=== PATIENT | female | born 1955 | race Caucasian/White ===

== ENCOUNTER 2020-04-28 04:12 | Emergency (ER) | payer SELFPAY ==
[2020-04-28 04:17] VITALS: BP 125/77; BP 130/80; PULSE 100; PULSE 80; RESP 20; TEMP 36.7; O2SAT 94; BMI 21.9
--- NOTE | 2020-04-28 04:23 | ED_ITS ---
HPI - Alcohol General Chief Complaint: ETOH/Substance Use Stated Complaint: ETOH Time Seen by Provider: 04/28/20 04:22 Source: patient and EMS Mode of arrival: EMS Limitations: no limitations History of Present Illness HPI narrative: Patient's history of alcohol use usually she drinks on the weekend last night patient had more than usual wine was in the kitchen lost balance and fell on the tile floor landed on the right side hitting her elbow to the ground came with a skin tear on the right elbow denies any head injury no loss of consciousness patient not on blood thinner patient was unable to stand up because of unsteadiness and she called ambulance denies any neck pain or back pain complaint: alcohol intoxication Chronic alcohol use: Yes Previous visits for alcohol intoxication: No Recent trauma: Yes Related Data Previous Rx's Medication Instructions Recorded amlodipine 5 mg tablet 5 mg PO DAILY 30 Days #30 tab 04/15/20 hydrochlorothiazide 25 mg tablet 25 mg PO DAILY 30 Days #30 tab 04/15/20 levothyroxine 112 mcg tablet 112 mcg PO DAILY 90 Days #90 tab 04/15/20 ciprofloxacin HCl [Cipro] 500 mg PO BID #6 tab 04/28/20 Allergies Allergy/AdvReac Type Severity Reaction Status Date / Time No Known Allergies Allergy Unverified 01/24/20 18:41 [No Known Allergies*] Review of Systems Review of Systems: Constitutional : No Weight loss, No Fever, No Chills ENT/Mouth : No sore throat, No Rhinorrhea Eyes: No Eye Pain, No Swelling Cardiovascular : No Chest Pain, no Dyspnea on Exertion, No Orthopnea, No Edema, No Palpitations, no SOB Respiratory : No Cough, No Sputum Gastrointestinal : no Nausea, No Vomiting, No Diarrhea, No abdominal Pain, No Hematochezia, No Melena Genitourinary : No Dysuria, No Urinary Frequency Musculoskeletal : No joint pain, No Myalgias, No Joint Swelling Skin : No Skin Lesions, No rash Neuro : No Weakness, No Numbness, No Dizziness, No Headache Psych : No Anxiety/Panic, No Depression Heme/Lymph:+ Bruising, No Lymphadenopathy Endocrine : No Polyuria, No Polydipsia All other systems reviewed and are negative PMFSH Past Medical History Medical History Alcohol abuse COPD (chronic obstructive pulmonary disease) Social History Social History Advance Directives: No Advance Directives Information Provided: No Physical Exam Vital Signs: Vital Signs: Last Vital Signs Temp 98.0 F 04/28/20 04:17 Pulse 96 04/28/20 05:57 Resp 16 04/28/20 05:57 BP 114/70 04/28/20 05:57 Pulse Ox 94 04/28/20 04:17 Body Mass Index 21.9 Appearance: Alert. Oriented X3. No acute distress. Intoxicated Eyes: Pupils equal, round and reactive to light. ENT: Pharynx normal. Head atraumatic Neck: Normal inspection. Neck supple. No midline tenderness CVS: Normal heart rate and rhythm. Pulses normal. Respiratory: No respiratory distress. Breath sounds normal. Abdomen: Soft and nontender. Bowel sounds are present, no mass palpable, no CVA tenderness Skin: Skin warm and dry. Normal skin color. Normal skin turgor. Extremities: No lower extremity edema. Small Skin tear right elbow good range of movement of right elbow Neuro: Oriented X 3. No motor deficit. No sensory deficit. MDM - Alcohol MDM Narrative Medical decision making narrative: Patient alcoholic with ETOH level of [address] scan of the head is negative no significant injuries noticed labs are stable patient ambulate in the ER and steady gait but no one to take her home will wait for another 4 hours for her to get further sober and discharge advised her not to drink alcohol patient UA showed nitrite positive urine bacteria 3+ patient asymptomatic will treat her with antibiotics Differential Diagnosis Differential diagnosis: Likely alcohol dependence Medical Records Attestation: I reviewed the patient's medical records. Lab Data Attestation: I reviewed the patient's lab results. Result diagrams: 04/28/20 04:39 04/28/20 04:39 Labs: Lab Results 04/28/20 04/28/20 04/28/20 Range/Units 04:39 04:39 04:39 WBC 6.4 (4.8-10.8) X10*3/uL RBC 3.78 L (4.20-5.50) X10*6/uL Hgb 12.7 (12.0-16.0) g/dl Hct 36.9 L (37-47) % MCV 97.6 (80-98) fL MCH 33.6 H (27.0-33.0) pg MCHC 34.4 (31.0-35.0) g/dl RDW 12.8 (11.0-16.0) % Plt Count 144 L (160-400) X10*3/uL MPV 9.3 L (9.4-12.3) fL Immature Gran % (Auto) 0.3 (0.0-0.4) % Neut % (Auto) 55.6 (45-73) % Lymph % (Auto) 32.7 (20-40) % [place] % (Auto) 7.8 (2-11) % Eos % (Auto) 3.0 (0-4) % Baso % (Auto) 0.6 (0-2) % Lymph # (Auto) 2.1 (1.2-4.9) X10*3/uL [place] # (Auto) 0.5 (0.1-1.2) X10*3/uL Eos # (Auto) 0.2 (0.0-0.4) X10*3/uL Baso # (Auto) 0.0 (0.0-0.2) X10*3/uL Abs Immat Gran (auto) 0.02 (0.00-0.03) X10*3/uL Absolute Neuts (auto) 3.6 (2.0-8.3) X10*3/uL Absolute Nucleated RBC 0.000 (0.0-0.012) X10*3/uL Nucleated RBC % (auto) 0.0 (0.0-0.2) /100WBC Smear Tech's Comments VERIFIED Sodium 138 (135-145) mmol/L Potassium 3.8 (3.3-5.1) mmol/l Chloride 101 (96-108) mmol/L Carbon Dioxide 23 (22-29) mmol/L Anion Gap 18 (12-20) BUN 9 (9-16) mg/dL Creatinine 0.59 (0.5-1.4) mg/dL Estim Creat Clear Calc 90.1 Estimated GFR > 60 Random Glucose 111 (60-115) mg/dL Calcium 9.4 (8.4-10.2) mg/dL Magnesium 1.6 (1.6-2.6) mg/dL Total Bilirubin < 0.2 (0.0-1.0) mg/dL AST 17 (5-31) U/L ALT 14 (0-31) U/L Alkaline Phosphatase 54 (39-117) U/L Total Protein 6.2 L (6.5-8.0) g/dL Albumin 3.8 (3.5-5.0) g/dL Urine Color Urine Appearance Urine pH (5.0-8.0) Ur Specific [place] (1.005-1.025) Urine Protein (NEG-TRACE) MG/DL Urine Glucose (UA) (NEG) MG/DL Urine Ketones (NEG) MG/DL Urine Blood (NEG) Urine Nitrite (NEG) Ur Leukocyte Esterase (NEG) Urine RBC (0) /HPF Urine WBC (0-4) /HPF Ur Squamous Epith Cells /LPF Urine Bacteria /LPF Ethyl Alcohol 270 mg/dL 04/28/20 Range/Units 05:58 WBC (4.8-10.8) X10*3/uL RBC (4.20-5.50) X10*6/uL Hgb (12.0-16.0) g/dl Hct (37-47) % MCV (80-98) fL MCH (27.0-33.0) pg MCHC (31.0-35.0) g/dl RDW (11.0-16.0) % Plt Count (160-400) X10*3/uL MPV (9.4-12.3) fL Immature Gran % (Auto) (0.0-0.4) % Neut % (Auto) (45-73) % Lymph % (Auto) (20-40) % [place] % (Auto) (2-11) % Eos % (Auto) (0-4) % Baso % (Auto) (0-2) % Lymph # (Auto) (1.2-4.9) X10*3/uL [place] # (Auto) (0.1-1.2) X10*3/uL Eos # (Auto) (0.0-0.4) X10*3/uL Baso # (Auto) (0.0-0.2) X10*3/uL Abs Immat Gran (auto) (0.00-0.03) X10*3/uL Absolute Neuts (auto) (2.0-8.3) X10*3/uL Absolute Nucleated RBC (0.0-0.012) X10*3/uL Nucleated RBC % (auto) (0.0-0.2) /100WBC Smear Tech's Comments Sodium (135-145) mmol/L Potassium (3.3-5.1) mmol/l Chloride (96-108) mmol/L Carbon Dioxide (22-29) mmol/L Anion Gap (12-20) BUN (9-16) mg/dL Creatinine (0.5-1.4) mg/dL Estim Creat Clear Calc Estimated GFR Random Glucose (60-115) mg/dL Calcium (8.4-10.2) mg/dL Magnesium (1.6-2.6) mg/dL Total Bilirubin (0.0-1.0) mg/dL AST (5-31) U/L ALT (0-31) U/L Alkaline Phosphatase (39-117) U/L Total Protein (6.5-8.0) g/dL Albumin (3.5-5.0) g/dL Urine Color COLORLESS Urine Appearance CLEAR Urine pH 6.0 (5.0-8.0) Ur Specific [place] <= 1.005 (1.005-1.025) Urine Protein NEG (NEG-TRACE) MG/DL Urine Glucose (UA) NEG (NEG) MG/DL Urine Ketones NEG (NEG) MG/DL Urine Blood NEG (NEG) Urine Nitrite POS H (NEG) Ur Leukocyte Esterase NEG (NEG) Urine RBC 0 (0) /HPF Urine WBC 0-2 (0-4) /HPF Ur Squamous Epith Cells 1+ /LPF Urine Bacteria 3+ /LPF Ethyl Alcohol mg/dL Discharge Plan Discharge Clinical Impression: Alcoholic intoxication Qualifiers: Complication of substance-induced condition: uncomplicated Qualified Code(s): F10.920 - Alcohol use, unspecified with intoxication, uncomplicated Fall Qualifiers: Encounter type: initial encounter Qualified Code(s): W19.XXXA - Unspecified fall, initial encounter UTI (urinary tract infection) Qualifiers: Urinary tract infection type: acute cystitis Hematuria presence: without hematuria Qualified Code(s): N30.00 - Acute cystitis without hematuria Patient Disposition: Home, Self-Care Instructions: Urinary Tract Infection in Women (ED), Alcohol Intoxication (ED), Fall Prevention (ED) Additional Instructions: Stop drinking alcohol local care of skin tear as advised, drink plenty of fluids Prescriptions: New ciprofloxacin HCl [Cipro] 500 mg tablet 500 mg PO BID Qty: 6 RF: 0 No Action amlodipine 5 mg tablet 5 mg PO DAILY 30 Days Qty: 30 RF: 3 levothyroxine 112 mcg tablet 112 mcg PO DAILY 90 Days Qty: 90 RF: 1 hydrochlorothiazide 25 mg tablet 25 mg PO DAILY 30 Days Qty: 30 RF: 3
--- NOTE | 2020-04-28 04:31 | ECG_ITS ---
Test Reason : FALL Blood Pressure : / mmHG Vent. Rate : 084 BPM Atrial Rate : 084 BPM P-R Int : 160 ms QRS Dur : 088 ms QT Int : 362 ms P-R-T Axes : 063 078 072 degrees QTc Int : 427 ms Normal sinus rhythm Normal ECG When compared with ECG of 26-JAN-2019 19:41, No significant change was found Referred By: Clemente Segura Electronically Signed By:YONI GIFFORD MD
--- NOTE | 2020-04-28 04:32 | CT_ITS ---
EXAMINATION: CT HEAD WITHOUT CONTRAST CLINICAL INFORMATION: Trauma. Fall. COMPARISON: None. TECHNIQUE: Contiguous helical images of the brain were obtained without IV contrast. Multiplanar reconstructions were performed. DLP: 588 mGy-cm. FINDINGS: There are no pathologic extra-axial fluid collections. The lateral, third, fourth ventricles are nondilated and concordant with the appearance of the sulci. There is no evidence for acute intraparenchymal hemorrhage or infarct. There is subcortical white matter disease noted within the high bilateral frontal lobes. There is neither mass nor mass effect. There is no shift of midline structures. The paranasal sinuses and mastoid air cells are clear. There are no osseous lesions. CT/CT head/brain wo con IMPRESSION: No evidence for acute intracranial injury. Automated exposure control (Care Dose) Adjustment of the mA and/or kv according to patient size (this includes techniques or standardized protocols for targeted exams where dose is matched to indication / reason for exam; i.e. extremities or head).
[2020-04-28 04:44] LABS: Eosinophils Absolute Auto 0.2 X10*3/uL (0.0-0.4); Hemoglobin 12.7 g/dl (12.0-16.0); MANUAL DIFF FLAG SCAN; PLT CLUMP 1; SCAN SMEAR FLAG 1
[2020-04-28 04:46] LABS: Basophils Percent Auto 0.6 % (0-2); Hematocrit 36.9 % (37-47); Imm Gran Abs Auto 0.02 X10*3/uL (0.00-0.03); Imm Gran Pct Auto 0.3 % (0.0-0.4); Lymphocytes Absolute Auto 2.1 X10*3/uL (1.2-4.9); Lymphocytes Percent Auto 32.7 % (20-40); Mean Corpuscular HGB Conc 34.4 g/dl (31.0-35.0); Mean Corpuscular Hemoglobin 33.6 pg (27.0-33.0); Mean Corpuscular Volume 97.6 fL (80-98); Mean Platelet Volume 9.3 fL (9.4-12.3); Monocytes Absolute Auto 0.5 X10*3/uL (0.1-1.2); Monocytes Percent Auto 7.8 % (2-11); Neutrophils Absolute Auto 3.6 X10*3/uL (2.0-8.3); Neutrophils Percent Auto 55.6 % (45-73); Red Blood Count 3.78 X10*6/uL (4.20-5.50); Red Cell Distribution Width 12.8 % (11.0-16.0); White Blood Count 6.4 X10*3/uL (4.8-10.8)
--- NOTE | 2020-04-28 04:52 | PC.NURSE ---
Labs obtained, EKG obtained. Pt off to CT on hospital bed.
[2020-04-28 05:03] LABS: Platelet Count 144 X10*3/uL (160-400); SLIDE REVIEW VERIFIED
[2020-04-28 05:04] LABS: Ethanol 270 mg/dL
[2020-04-28 05:09] LABS: Alanine Aminotransferase 14 U/L (0-31); Albumin Level 3.8 g/dL (3.5-5.0); Alkaline Phosphatase 54 U/L (39-117); Anion Gap 18 (12-20); Aspartate Amino Transferase 17 U/L (5-31); Bilirubin Total < 0.2 mg/dL (0.0-1.0); Blood Urea Nitrogen 9 mg/dL (9-16); Calcium 9.4 mg/dL (8.4-10.2); Carbon Dioxide 23 mmol/L (22-29); Chloride 101 mmol/L (96-108); Creatinine Clr Calc Pharmacy 90.1; Estimated Glomerular Filt Rate > 60; Glucose Random 111 mg/dL (60-115); Magnesium 1.6 mg/dL (1.6-2.6); Potassium 3.8 mmol/l (3.3-5.1); Sodium 138 mmol/L (135-145); Total Protein 6.2 g/dL (6.5-8.0)
--- NOTE | 2020-04-28 05:40 | PC.NURSE ---
Pt ambulating in the halls with a steady gait, requiring minimal assist but pt continues expressing difficulty moving extremities. Pt states my body just won't do what I tell it to. Pt moving all extremities without obvious difficulty. Pt states she does not have a ride home, pt insistent on walking home, pt lives alone. aware. Continue to monitor.
[2020-04-28 05:57] VITALS: BP 114/70; PULSE 96; RESP 16
[2020-04-28 06:04] LABS: Appearance Urine CLEAR; Color Urine COLORLESS; Glucose Urine UA NEG (NEG); Leukocyte Esterase Urine NEG (NEG); Nitrite Urine POS (NEG); Specific Gravity - Urine <= 1.005 (1.005-1.025); Urine Blood NEG (NEG); Urine Ketones NEG (NEG); Urine Protein NEG (NEG-TRACE)
[2020-04-28 06:11] LABS: Bacteria Urine 3+ /LPF; RBC Urine 0 /HPF (0); Squamous Epithelial Cell Urine 1+ /LPF; WBC Urine 0-2 /HPF (0-4)
[2020-04-28] MEDS: levoFLOXacin 500 MG TABLET PO (06:18)
--- NOTE | 2020-04-28 06:25 | PC.NURSE ---
Bernardino called for ride home, ETA 30 minutes.
== END 2020-04-28 06:38 | disposition home or self-care (01) ==
PROVIDERS: Emergency Provider Internal Medicine; PCP Internal Medicine
DX: F10.120 Alcohol abuse with intoxication, uncomplicated (principal); Y90.8 Blood alcohol level of 240 mg/100 ml or more; N30.00 Acute cystitis without hematuria; Z91.81 History of falling
CPT/HCPCS: 36415; 70450; 80053; 80320; 81001; 83735; 85025; 87086; 87088; 87186; 93005; 99283; 99284

== ENCOUNTER 2020-09-18 02:32 | Emergency (ER) | payer MEDICARE, SELFPAY ==
[2020-09-18] VITALS (7 sets, daily range): BP systolic 124–173; BP diastolic 69–85; PULSE 77–110; RESP 14–21; TEMP 36.7–37; O2SAT 91–100; BMI 25.8
--- NOTE | 2020-09-18 03:29 | ED.GENADULT ---
HPI - General Adult General Chief complaint: General Medical Stated complaint: TREMORS Time Seen by Provider: 09/18/20 03:23 Source: patient Mode of arrival: EMS Limitations: no limitations History of Present Illness HPI narrative: Patient comes emergency room complaining of sudden onset of left arm shaking. Patient states she was still able to move her arm, it was just trembling. Patient states this is the 1st time it happens, denies numbness tingling. Self resolved, lasted for less than a minute. At this time, patient is asymptomatic Related Data Previous Rx's Medication Instructions Recorded levothyroxine 112 mcg tablet 112 mcg PO DAILY 90 Days #90 tab 04/15/20 ciprofloxacin HCl [Cipro] 500 mg PO BID #6 tab 04/28/20 amlodipine 5 mg tablet 5 mg PO DAILY 30 Days #30 tab 08/14/20 hydrochlorothiazide 25 mg tablet 25 mg PO DAILY 30 Days #30 tab 08/14/20 Allergies Allergy/AdvReac Type Severity Reaction Status Date / Time No Known Allergies Allergy Unverified 01/24/20 18:41 [No Known Allergies*] Review of Systems Review of Systems: Constitutional : No Weight loss, No Fever, No Chills, No Night Sweats, No Fatigue, No Malaise ENT/Mouth : No Hearing loss, No Ear Pain, No Nasal Congestion, No Sinus Pain, No Hoarseness, No sore throat, No Rhinorrhea, No Swallowing Difficulty Eyes: No Eye Pain, No Swelling, No Redness, No Foreign Body, No Discharge, No Vision Changes Cardiovascular : No Chest Pain, No SOB, No Dyspnea on Exertion, No Orthopnea, No Edema, No Palpitations Respiratory : No Cough, No Sputum, No Wheezing, No Smoke Exposure, No Dyspnea Gastrointestinal : No Nausea, No Vomiting, No Diarrhea, No Constipation, No abdominal Pain, No Hematochezia, No Melena Genitourinary : no irregular bleeding, No Dysuria, No Urinary Frequency, No Hematuria, No Urinary Incontinence, No Urgency, No Flank Pain, No Urinary Flow Changes, No Hesitancy Musculoskeletal : No joint pain, No Myalgias, No Joint Swelling Skin : No Skin Lesions, No rash Neuro : No Weakness, No Numbness, No Paresthesias, No Loss of Consciousness, No Dizziness, No Headache, complaining of left arm tremors Psych : No Anxiety/Panic, No Depression, No SI/HI/AH/VH, No Social Issues, Heme/Lymph: No Bruising, No Bleeding,No Lymphadenopathy Endocrine : No Polyuria, No Polydipsia, No Temperature Intolerance [facility] Past Medical History Medical History Alcohol abuse COPD (chronic obstructive pulmonary disease) Social History Social History Advance Directives: No Advance Directives Information Provided: No Physical Exam Vital Signs: Vital Signs: Last Vital Signs Temp 98.1 F 09/18/20 02:39 Pulse 110 H 09/18/20 07:39 Resp 21 H 09/18/20 07:39 BP 160/69 H 09/18/20 07:39 Pulse Ox 92 09/18/20 07:39 Body Mass Index 25.8 Appearance: Alert. Oriented X3. No acute distress. Eyes: Pupils equal, round and reactive to light. ENT: Pharynx normal. Neck: Normal inspection. Neck supple. No lymph nodes noted. No crepitus CVS: Normal heart rate and rhythm. Pulses normal. Normal S1 and S2 Respiratory: No respiratory distress. Breath sounds normal. No Wheezing. No rales Abdomen: Soft and nontender. No rigidity. No distention. good BS x4 Skin: Skin warm and dry. Normal skin color. Normal skin turgor. Extremities: No lower extremity edema. No lower extremity edema. No Lacerations. No Rash, no tremors present. Neuro: Oriented X 3. No motor deficit. No sensory deficit. Moving all extermities. No slurred speech. Course Course Course Narrative: Patient's LFTs are slightly elevated, likely secondary due to alcohol consumption. Patient has no abdominal discomfort. Patient received 3 L of normal saline, oral potassium, repeat chemistry pending. Sign-out given to Dr. Kay Medical Decision Making Lab Data Result diagrams: 09/18/20 03:53 09/18/20 06:17 Labs: Lab Results 09/18/20 09/18/20 09/18/20 Range/Units 03:53 03:53 03:53 WBC 7.3 (4.8-10.8) X10*3/uL RBC 4.11 L (4.20-5.50) X10*6/uL Hgb 14.4 (12.0-16.0) g/dl Hct 39.6 (37-47) % MCV 96.4 (80-98) fL MCH 35.0 H (27.0-33.0) pg MCHC 36.4 H (31.0-35.0) g/dl RDW 13.7 (11.0-16.0) % Plt Count 110 L (160-400) X10*3/uL MPV 9.8 (9.4-12.3) fL Immature Gran % (Auto) 0.4 (0.0-0.4) % Neut % (Auto) 80.8 H (45-73) % Lymph % (Auto) 9.9 L (20-40) % [place] % (Auto) 8.8 (2-11) % Eos % (Auto) 0.0 (0-4) % Baso % (Auto) 0.1 (0-2) % Lymph # (Auto) 0.7 L (1.2-4.9) X10*3/uL [place] # (Auto) 0.6 (0.1-1.2) X10*3/uL Eos # (Auto) 0.0 (0.0-0.4) X10*3/uL Baso # (Auto) 0.0 (0.0-0.2) X10*3/uL Abs Immat Gran (auto) 0.03 (0.00-0.03) X10*3/uL Absolute Neuts (auto) 5.9 (2.0-8.3) X10*3/uL Absolute Nucleated RBC 0.000 (0.0-0.012) X10*3/uL Nucleated RBC % (auto) 0.0 (0.0-0.2) /100WBC Sodium 127 L (135-145) mmol/L Potassium 2.7 L (3.3-5.1) mmol/L Chloride 85 L (96-108) mmol/L Carbon Dioxide 27 (22-29) mmol/L Anion Gap 18 (12-20) BUN 9 (9-16) mg/dL Creatinine 0.66 (0.5-1.4) mg/dL Estim Creat Clear Calc 86.6 Estimated GFR > 60 Random Glucose 104 (60-115) mg/dL Calcium 9.8 (8.4-10.2) mg/dL Magnesium 1.7 (1.6-2.6) mg/dL Total Bilirubin 1.2 H (0.0-1.0) mg/dL Direct Bilirubin 0.6 H (0.0-0.5) mg/dL AST 43 H D (5-31) U/L ALT 64 H (0-31) U/L Alkaline Phosphatase 63 (39-117) U/L Ammonia (13-55) umol/L Total Protein 6.5 (6.5-8.0) g/dL Albumin 4.1 (3.5-5.0) g/dL Ethyl Alcohol < 10 mg/dL 09/18/20 09/18/20 Range/Units 03:53 06:17 WBC (4.8-10.8) X10*3/uL RBC (4.20-5.50) X10*6/uL Hgb (12.0-16.0) g/dl Hct (37-47) % MCV (80-98) fL MCH (27.0-33.0) pg MCHC (31.0-35.0) g/dl RDW (11.0-16.0) % Plt Count (160-400) X10*3/uL MPV (9.4-12.3) fL Immature Gran % (Auto) (0.0-0.4) % Neut % (Auto) (45-73) % Lymph % (Auto) (20-40) % [place] % (Auto) (2-11) % Eos % (Auto) (0-4) % Baso % (Auto) (0-2) % Lymph # (Auto) (1.2-4.9) X10*3/uL [place] # (Auto) (0.1-1.2) X10*3/uL Eos # (Auto) (0.0-0.4) X10*3/uL Baso # (Auto) (0.0-0.2) X10*3/uL Abs Immat Gran (auto) (0.00-0.03) X10*3/uL Absolute Neuts (auto) (2.0-8.3) X10*3/uL Absolute Nucleated RBC (0.0-0.012) X10*3/uL Nucleated RBC % (auto) (0.0-0.2) /100WBC Sodium 132 L (135-145) mmol/L Potassium 2.6 L (3.3-5.1) mmol/L Chloride 92 L (96-108) mmol/L Carbon Dioxide 29 (22-29) mmol/L Anion Gap 14 (12-20) BUN 8 L (9-16) mg/dL Creatinine 0.71 (0.5-1.4) mg/dL Estim Creat Clear Calc 80.5 Estimated GFR > 60 Random Glucose 93 (60-115) mg/dL Calcium 8.8 D (8.4-10.2) mg/dL Magnesium (1.6-2.6) mg/dL Total Bilirubin (0.0-1.0) mg/dL Direct Bilirubin (0.0-0.5) mg/dL AST (5-31) U/L ALT (0-31) U/L Alkaline Phosphatase (39-117) U/L Ammonia 45 (13-55) umol/L Total Protein (6.5-8.0) g/dL Albumin (3.5-5.0) g/dL Ethyl Alcohol mg/dL ECG Data Attestation: I personally reviewed and interpreted this ECG as follows: (ID 1 7, ST segment depression or elevation, T-wave inversion, QTC 475) Discharge Plan Discharge Clinical Impression: Tremor, Acute hyponatremia, Acute hypokalemia Patient Disposition: Home, Self-Care Instructions: Tremors (ED) Additional Instructions: Please follow-up with your primary care physician tomorrow. If you have any worsening or new symptoms, please return to the emergency room or call 911 Prescriptions: No Action levothyroxine 112 mcg tablet 112 mcg PO DAILY 90 Days Qty: 90 RF: 1 hydrochlorothiazide 25 mg tablet 25 mg PO DAILY 30 Days Qty: 30 RF: 6 amlodipine 5 mg tablet 5 mg PO DAILY 30 Days Qty: 30 RF: 3 ciprofloxacin HCl [Cipro] 500 mg tablet 500 mg PO BID Qty: 6 RF: 0
--- NOTE | 2020-09-18 03:55 | PC.NURSE ---
Labs obtained and sent for analysis. Pt resting in bed, VSS, call serna within reach.
[2020-09-18 04:01] LABS: Basophils Percent Auto 0.1 % (0-2); Hematocrit 39.6 % (37-47); Hemoglobin 14.4 g/dl (12.0-16.0); Imm Gran Abs Auto 0.03 X10*3/uL (0.00-0.03); Imm Gran Pct Auto 0.4 % (0.0-0.4); Lymphocytes Absolute Auto 0.7 X10*3/uL (1.2-4.9); Lymphocytes Percent Auto 9.9 % (20-40); Mean Corpuscular HGB Conc 36.4 g/dl (31.0-35.0); Mean Corpuscular Volume 96.4 fL (80-98); Mean Platelet Volume 9.8 fL (9.4-12.3); Monocytes Absolute Auto 0.6 X10*3/uL (0.1-1.2); Monocytes Percent Auto 8.8 % (2-11); Neutrophils Absolute Auto 5.9 X10*3/uL (2.0-8.3); Neutrophils Percent Auto 80.8 % (45-73); Platelet Count 110 X10*3/uL (160-400); Red Blood Count 4.11 X10*6/uL (4.20-5.50); Red Cell Distribution Width 13.7 % (11.0-16.0); White Blood Count 7.3 X10*3/uL (4.8-10.8)
[2020-09-18 04:02] LABS: MANUAL DIFF FLAG NO
[2020-09-18 04:15] LABS: Ammonia 45 umol/L (13-55)
[2020-09-18 04:22] LABS: Ethanol < 10 mg/dL
[2020-09-18 04:28] LABS: Alanine Aminotransferase 64 U/L (0-31); Albumin Level 4.1 g/dL (3.5-5.0); Alkaline Phosphatase 63 U/L (39-117); Anion Gap 18 (12-20); Aspartate Amino Transferase 43 U/L (5-31); Bilirubin Direct 0.6 mg/dL (0.0-0.5); Bilirubin Total 1.2 mg/dL (0.0-1.0); Blood Urea Nitrogen 9 mg/dL (9-16); Calcium 9.8 mg/dL (8.4-10.2); Carbon Dioxide 27 mmol/L (22-29); Chloride 85 mmol/L (96-108); Creatinine Clr Calc Pharmacy 86.6; Estimated Glomerular Filt Rate > 60; Glucose Random 104 mg/dL (60-115); Magnesium 1.7 mg/dL (1.6-2.6); Potassium 2.7 mmol/L (3.3-5.1); Sodium 127 mmol/L (135-145); Total Protein 6.5 g/dL (6.5-8.0)
[2020-09-18] MEDS: 0.9 % Sodium Chloride 1,000 ML 999 ML IVCONT ×3 (05:07→07:37)
--- NOTE | 2020-09-18 05:07 | PC.NURSE ---
IVF infusing per MAR.
--- NOTE | 2020-09-18 06:24 | PC.NURSE ---
technical project coordinator at bedside obtaining repeat labs.
[2020-09-18 06:49] LABS: Anion Gap 14 (12-20); Blood Urea Nitrogen 8 mg/dL (9-16); Calcium 8.8 mg/dL (8.4-10.2); Carbon Dioxide 29 mmol/L (22-29); Chloride 92 mmol/L (96-108); Creatinine Clr Calc Pharmacy 80.5; Estimated Glomerular Filt Rate > 60; Glucose Random 93 mg/dL (60-115); Potassium 2.6 mmol/L (3.3-5.1); Sodium 132 mmol/L (135-145)
--- NOTE | 2020-09-18 07:22 | ECG_ITS ---
Test Reason : GENERAL MEDICAL Blood Pressure : / mmHG Vent. Rate : 107 BPM Atrial Rate : 107 BPM P-R Int : 180 ms QRS Dur : 074 ms QT Int : 356 ms P-R-T Axes : 071 078 077 degrees QTc Int : 475 ms Sinus tachycardia Otherwise normal ECG When compared with ECG of 28-APR-2020 04:44, QT has lengthened Referred By: Ama Truong Electronically Signed By:YONI GIFFORD MD
[2020-09-18] MEDS: Potassium Chloride Packet 20 MEQ PACKET 40 MEQ PO (07:36)
[2020-09-18] MEDS: Potassium Chloride/H20 10 MEQ/100 ML PIGGYBACK 100 MEQ IV (08:48)
[2020-09-18 10:36] LABS: Anion Gap 12 (12-20); Blood Urea Nitrogen 6 mg/dL (9-16); Calcium 8.4 mg/dL (8.4-10.2); Carbon Dioxide 27 mmol/L (22-29); Chloride 101 mmol/L (96-108); Creatinine Clr Calc Pharmacy 89.3; Estimated Glomerular Filt Rate > 60; Glucose Random 84 mg/dL (60-115); Potassium 3.1 mmol/L (3.3-5.1); Sodium 137 mmol/L (135-145)
== END 2020-09-18 11:14 | disposition home or self-care (01) ==
PROVIDERS: Emergency Provider Emergency Medicine; PCP Internal Medicine
DX: R25.1 Tremor, unspecified (principal); E87.1 Hypo-osmolality and hyponatremia; E87.6 Hypokalemia; F10.10 Alcohol abuse, uncomplicated; Y90.0 Blood alcohol level of less than 20 mg/100 ml
CPT/HCPCS: 36415; 80048; 80076; 80320; 82140; 83735; 85025; 93005; 96361; 96365; 99284

== ENCOUNTER 2020-09-26 23:52 | Emergency (ER) | payer MEDICARE, SELFPAY ==
--- NOTE | ~2020-09-26 | XR_ITS ---
EXAMINATION: XR CHEST CLINICAL INFORMATION: Cough COMPARISON: 01/26/2019 TECHNIQUE: Frontal view of the chest was obtained. FINDINGS: The lungs are clear with no focal consolidation. No evidence of pneumothorax, pulmonary edema, or pleural effusions. Cardiac size is within normal limits. Calcification is present at the aortic arch. No acute osseous findings are seen. XR/XR chest 1V IMPRESSION: No acute cardiopulmonary findings.
[2020-09-27 00:33] VITALS: BP 120/70; PULSE 104; RESP 16; TEMP 36.7; O2SAT 94; BMI 18.6
--- NOTE | 2020-09-27 00:35 | ECG_ITS ---
Test Reason : NAUSEA/VOMITING Blood Pressure : / mmHG Vent. Rate : 096 BPM Atrial Rate : 096 BPM P-R Int : 146 ms QRS Dur : 080 ms QT Int : 354 ms P-R-T Axes : 070 085 085 degrees QTc Int : 447 ms Normal sinus rhythm Normal ECG When compared with ECG of 18-SEP-2020 07:59, No significant change was found Referred By: Umm Garber Electronically Signed By:YONI GIFFORD MD
[2020-09-27 01:01] VITALS: BP 109/68; PULSE 98; RESP 15; O2SAT 94
[2020-09-27 01:11] LABS: Basophils Percent Auto 0.4 % (0-2); Eosinophils Percent Auto 0.2 % (0-4); Hematocrit 41.6 % (37-47); Hemoglobin 14.7 g/dl (12.0-16.0); Imm Gran Abs Auto 0.04 X10*3/uL (0.00-0.03); Imm Gran Pct Auto 0.4 % (0.0-0.4); Lymphocytes Absolute Auto 0.9 X10*3/uL (1.2-4.9); Lymphocytes Percent Auto 8.1 % (20-40); MANUAL DIFF FLAG NO; Mean Corpuscular HGB Conc 35.3 g/dl (31.0-35.0); Mean Corpuscular Hemoglobin 35.1 pg (27.0-33.0); Mean Corpuscular Volume 99.3 fL (80-98); Mean Platelet Volume 9.2 fL (9.4-12.3); Monocytes Absolute Auto 0.8 X10*3/uL (0.1-1.2); Monocytes Percent Auto 6.8 % (2-11); Neutrophils Absolute Auto 9.6 X10*3/uL (2.0-8.3); Neutrophils Percent Auto 84.1 % (45-73); Platelet Count 392 X10*3/uL (160-400); Red Blood Count 4.19 X10*6/uL (4.20-5.50); White Blood Count 11.4 X10*3/uL (4.8-10.8)
[2020-09-27 01:23] LABS: INTERNATIONAL NORM RATIO 0.9 (0.9-1.1); Prothrombin Time 10.5 SEC (10.8-13.0)
[2020-09-27] MEDS: ondansetron HCL 4 MG/2 ML VIAL IVPUSH (01:32)
[2020-09-27] MEDS: 0.9 % Sodium Chloride 1,000 ML 999 ML IV (01:36)
[2020-09-27 01:38] LABS: Alanine Aminotransferase 62 U/L (0-31); Albumin Level 3.6 g/dL (3.5-5.0); Alkaline Phosphatase 83 U/L (39-117); Anion Gap 19 (12-20); Aspartate Amino Transferase 27 U/L (5-31); Bilirubin Total 0.6 mg/dL (0.0-1.0); Blood Urea Nitrogen 7 mg/dL (9-16); Calcium 9.6 mg/dL (8.4-10.2); Carbon Dioxide 28 mmol/L (22-29); Chloride 92 mmol/L (96-108); Creatinine Clr Calc Pharmacy 72.2; Estimated Glomerular Filt Rate > 60; Glucose Random 103 mg/dL (60-115); Lipase 22 U/L (8-78); Potassium 3.9 mmol/L (3.3-5.1); Sodium 135 mmol/L (135-145); Total Protein 6.1 g/dL (6.5-8.0)
--- NOTE | 2020-09-27 01:38 | ED_ITS ---
HPI - Nausea/Vomiting/Diarrhea General Chief complaint: Nausea/Vomiting/Diarrhea Stated complaint: nausea vomiting Time Seen by Provider: 09/27/20 00:35 Source: patient Mode of arrival: ambulatory History of Present Illness HPI Narrative: This is a 65-year-old female with significant past medical history of COPD and daily wine drinker who states that her last successful consumption of wine was 3 days ago and now presents with 2 days repeated nausea and vomiting as well as nonbloody diarrhea. Otherwise, she denies any fever, chills, abdominal pain, urinary pain/burning/frequency. Patient denies ever having any withdrawal symptoms when she has attempted to abstain from alcohol. Related Data Previous Rx's Medication Instructions Recorded levothyroxine 112 mcg tablet 112 mcg PO DAILY 90 Days #90 tab 04/15/20 ciprofloxacin HCl [Cipro] 500 mg PO BID #6 tab 04/28/20 amlodipine 5 mg tablet 5 mg PO DAILY 30 Days #30 tab 08/14/20 hydrochlorothiazide 25 mg tablet 25 mg PO DAILY 30 Days #30 tab 08/14/20 cephalexin 500 mg PO BID 7 Days #14 cap 09/27/20 Allergies Allergy/AdvReac Type Severity Reaction Status Date / Time No Known Allergies Allergy Unverified 01/24/20 18:41 [No Known Allergies*] Review of Systems Review of Systems: Pertinent positives and negatives as stated in the HPI and 10 point review of systems is otherwise negative. [facility] Past Medical History Source: nursing notes reviewed Medical History Alcohol abuse COPD (chronic obstructive pulmonary disease) Social History Social History Advance Directives: No Advance Directives Information Provided: Yes Physical Exam Vital Signs: Vital Signs: Last Vital Signs Temp 98.1 F 09/27/20 00:33 Pulse 98 09/27/20 01:01 Resp 15 09/27/20 01:01 BP 109/68 09/27/20 01:01 Pulse Ox 94 09/27/20 01:01 Body Mass Index 18.6 VITAL SIGNS: Reviewed. GENERAL: Cachectic, in no acute distress. HEAD: Normocephalic/atraumatic EYES: PERRLA, EOMI EARS: Ext canals without abnormality NOSE: Nares patent bilateral OROPHARYNX: no oral lesions noted, posterior pharynx clear, dry mucosa NECK: Supple, no adenopathy LUNGS: Scattered rhonchi, without wheeze SpO2<94> CARDIOVASCULAR: Regular rate and rhythm without noted murmurs ABDOMEN: Soft, non-tender, non-distended with bowel sounds. MUSCULOSKELETAL: No tenderness, deformities, or effusions noted on gross inspection. EXTREMITIES: No cyanosis, clubbing or edema. SKIN: Inspection of the skin reveals no rashes NEUROLOGIC: Alert and oriented x 4. Strength and sensation to light touch were grossly intact x 4. Course Course Course Narrative: This is a 65-year-old female with history and clinical presentation consistent with alcohol gastritis and associated nausea and vomiting. However, will rule out other etiologies such as pancreatitis although clinical exam does not support this diagnosis. Patient certainly has dehydration. Review of all investigations consistent with sepsis related to UTI. After adequate fluid resuscitation and antibiotics as well as antiemetics patient has had complete resolution of her symptoms, states feeling better, and is tolerating oral intake. Patient is now stable for discharge to home MDM - Nausea/Vomiting/Diarrhea Lab Data Result diagrams: 09/27/20 00:59 09/27/20 00:59 Labs: Lab Results 09/27/20 09/27/20 09/27/20 Range/Units 00:59 00:59 00:59 WBC 11.4 H (4.8-10.8) X10*3/uL RBC 4.19 L (4.20-5.50) X10*6/uL Hgb 14.7 (12.0-16.0) g/dl Hct 41.6 (37-47) % MCV 99.3 H (80-98) fL MCH 35.1 H (27.0-33.0) pg MCHC 35.3 H (31.0-35.0) g/dl RDW 14.0 (11.0-16.0) % Plt Count 392 D (160-400) X10*3/uL MPV 9.2 L (9.4-12.3) fL Immature Gran % (Auto) 0.4 (0.0-0.4) % Neut % (Auto) 84.1 H (45-73) % Lymph % (Auto) 8.1 L (20-40) % Kem[place] % (Auto) 6.8 (2-11) % Eos % (Auto) 0.2 (0-4) % Baso % (Auto) 0.4 (0-2) % Lymph # (Auto) 0.9 L (1.2-4.9) X10*3/uL Kemper # (Auto) 0.8 (0.1-1.2) X10*3/uL Eos # (Auto) 0.0 (0.0-0.4) X10*3/uL Baso # (Auto) 0.0 (0.0-0.2) X10*3/uL Abs Immat Gran (auto) 0.04 H (0.00-0.03) X10*3/uL Absolute Neuts (auto) 9.6 H (2.0-8.3) X10*3/uL Absolute Nucleated RBC 0.000 (0.0-0.012) X10*3/uL Nucleated RBC % (auto) 0.0 (0.0-0.2) /100WBC PT 10.5 L (10.8-13.0) SEC INR 0.9 (0.9-1.1) Sodium 135 (135-145) mmol/L Potassium 3.9 D (3.3-5.1) mmol/L Chloride 92 L (96-108) mmol/L Carbon Dioxide 28 (22-29) mmol/L Anion Gap 19 (12-20) BUN 7 L (9-16) mg/dL Creatinine 0.64 (0.5-1.4) mg/dL Estim Creat Clear Calc 72.2 Estimated GFR > 60 Random Glucose 103 (60-115) mg/dL Lactic Acid (0.5-2.0) mmol/L Lactic Acid Fup @ 2Hr (0.5-2.0) mmol/L Calcium 9.6 D (8.4-10.2) mg/dL Total Bilirubin 0.6 (0.0-1.0) mg/dL AST 27 (5-31) U/L ALT 62 H (0-31) U/L Alkaline Phosphatase 83 D (39-117) U/L Total Protein 6.1 L (6.5-8.0) g/dL Albumin 3.6 (3.5-5.0) g/dL Lipase (8-78) U/L Urine Color Urine Appearance Urine pH (5.0-8.0) Ur Specific [place] (1.005-1.025) Urine Protein (NEG-TRACE) MG/DL Urine Glucose (UA) (NEG) MG/DL Urine Ketones (NEG) MG/DL Urine Blood (NEG) Urine Nitrite (NEG) Ur Leukocyte Esterase (NEG) Urine RBC (0) /HPF Urine WBC (0-4) /HPF Ur Squamous Epith Cells /LPF Urine Bacteria /LPF Ethyl Alcohol mg/dL 09/27/20 09/27/20 09/27/20 Range/Units 00:59 01:39 02:13 WBC (4.8-10.8) X10*3/uL RBC (4.20-5.50) X10*6/uL Hgb (12.0-16.0) g/dl Hct (37-47) % MCV (80-98) fL MCH (27.0-33.0) pg MCHC (31.0-35.0) g/dl RDW (11.0-16.0) % Plt Count (160-400) X10*3/uL MPV (9.4-12.3) fL Immature Gran % (Auto) (0.0-0.4) % Neut % (Auto) (45-73) % Lymph % (Auto) (20-40) % Kemper % (Auto) (2-11) % Eos % (Auto) (0-4) % Baso % (Auto) (0-2) % Lymph # (Auto) (1.2-4.9) X10*3/uL Kemper # (Auto) (0.1-1.2) X10*3/uL Eos # (Auto) (0.0-0.4) X10*3/uL Baso # (Auto) (0.0-0.2) X10*3/uL Abs Immat Gran (auto) (0.00-0.03) X10*3/uL Absolute Neuts (auto) (2.0-8.3) X10*3/uL Absolute Nucleated RBC (0.0-0.012) X10*3/uL Nucleated RBC % (auto) (0.0-0.2) /100WBC PT (10.8-13.0) SEC INR (0.9-1.1) Sodium (135-145) mmol/L Potassium (3.3-5.1) mmol/L Chloride (96-108) mmol/L Carbon Dioxide (22-29) mmol/L Anion Gap (12-20) BUN (9-16) mg/dL Creatinine (0.5-1.4) mg/dL Estim Creat Clear Calc Estimated GFR Random Glucose (60-115) mg/dL Lactic Acid 2.9 H* (0.5-2.0) mmol/L Lactic Acid Fup @ 2Hr (0.5-2.0) mmol/L Calcium (8.4-10.2) mg/dL Total Bilirubin (0.0-1.0) mg/dL AST (5-31) U/L ALT (0-31) U/L Alkaline Phosphatase (39-117) U/L Total Protein (6.5-8.0) g/dL Albumin (3.5-5.0) g/dL Lipase 22 (8-78) U/L Urine Color YELLOW Urine Appearance HAZY Urine pH 6.5 (5.0-8.0) Ur Specific [place] <= 1.005 (1.005-1.025) Urine Protein NEG (NEG-TRACE) MG/DL Urine Glucose (UA) NEG (NEG) MG/DL Urine Ketones NEG (NEG) MG/DL Urine Blood TRACE (NEG) Urine Nitrite POS H (NEG) Ur Leukocyte Esterase TRACE H (NEG) Urine RBC 1-4 (0) /HPF Urine WBC 1-4 (0-4) /HPF Ur Squamous Epith Cells 1+ /LPF Urine Bacteria 4+ /LPF Ethyl Alcohol mg/dL 09/27/20 09/27/20 Range/Units 02:13 04:51 WBC (4.8-10.8) X10*3/uL RBC (4.20-5.50) X10*6/uL Hgb (12.0-16.0) g/dl Hct (37-47) % MCV (80-98) fL MCH (27.0-33.0) pg MCHC (31.0-35.0) g/dl RDW (11.0-16.0) % Plt Count (160-400) X10*3/uL MPV (9.4-12.3) fL Immature Gran % (Auto) (0.0-0.4) % Neut % (Auto) (45-73) % Lymph % (Auto) (20-40) % Kemper % (Auto) (2-11) % Eos % (Auto) (0-4) % Baso % (Auto) (0-2) % Lymph # (Auto) (1.2-4.9) X10*3/uL Kemper # (Auto) (0.1-1.2) X10*3/uL Eos # (Auto) (0.0-0.4) X10*3/uL Baso # (Auto) (0.0-0.2) X10*3/uL Abs Immat Gran (auto) (0.00-0.03) X10*3/uL Absolute Neuts (auto) (2.0-8.3) X10*3/uL Absolute Nucleated RBC (0.0-0.012) X10*3/uL Nucleated RBC % (auto) (0.0-0.2) /100WBC PT (10.8-13.0) SEC INR (0.9-1.1) Sodium (135-145) mmol/L Potassium (3.3-5.1) mmol/L Chloride (96-108) mmol/L Carbon Dioxide (22-29) mmol/L Anion Gap (12-20) BUN (9-16) mg/dL Creatinine (0.5-1.4) mg/dL Estim Creat Clear Calc Estimated GFR Random Glucose (60-115) mg/dL Lactic Acid (0.5-2.0) mmol/L Lactic Acid Fup @ 2Hr 1.9 (0.5-2.0) mmol/L Calcium (8.4-10.2) mg/dL Total Bilirubin (0.0-1.0) mg/dL AST (5-31) U/L ALT (0-31) U/L Alkaline Phosphatase (39-117) U/L Total Protein (6.5-8.0) g/dL Albumin (3.5-5.0) g/dL Lipase (8-78) U/L Urine Color Urine Appearance Urine pH (5.0-8.0) Ur Specific [place] (1.005-1.025) Urine Protein (NEG-TRACE) MG/DL Urine Glucose (UA) (NEG) MG/DL Urine Ketones (NEG) MG/DL Urine Blood (NEG) Urine Nitrite (NEG) Ur Leukocyte Esterase (NEG) Urine RBC (0) /HPF Urine WBC (0-4) /HPF Ur Squamous Epith Cells /LPF Urine Bacteria /LPF Ethyl Alcohol 52 mg/dL ECG Data Attestation: I personally reviewed and interpreted this ECG as follows: Prior ECG tracings: available for review (09/18/2020 no acute changes on comparison) Interpretation: Sinus rhythm, HR-96, no evidence of acute ischemia, OK/QRS/QTC are within normal limits. Discharge Plan Discharge Clinical Impression: Acute UTI, Dehydration Patient Disposition: Home, Self-Care Instructions: Dehydration (ED), Urinary Tract Infection in Women (ED) Additional Instructions: Please follow-up with your primary care provider in the next 2-3 days for re- evaluation. Return to the ER for any acute worsening of your symptoms. Prescriptions: New cephalexin 500 mg capsule 500 mg PO BID 7 Days Qty: 14 RF: 0 No Action levothyroxine 112 mcg tablet 112 mcg PO DAILY 90 Days Qty: 90 RF: 1 hydrochlorothiazide 25 mg tablet 25 mg PO DAILY 30 Days Qty: 30 RF: 6 amlodipine 5 mg tablet 5 mg PO DAILY 30 Days Qty: 30 RF: 3 ciprofloxacin HCl [Cipro] 500 mg tablet 500 mg PO BID Qty: 6 RF: 0 Referrals: Physician,Unknown [Primary Care Provider] - 2 days
[2020-09-27 02:18] LABS: Glucose Urine UA NEG (NEG); Leukocyte Esterase Urine TRACE (NEG); Nitrite Urine POS (NEG); PH 6.5 (5.0-8.0); Specific Gravity - Urine <= 1.005 (1.005-1.025); UACC Culture Trigger YES; Urine Blood TRACE (NEG); Urine Ketones NEG (NEG); Urine Protein NEG (NEG-TRACE)
[2020-09-27 02:21] LABS: Appearance Urine HAZY; Color Urine YELLOW
[2020-09-27 02:41] LABS: Bacteria Urine 4+ /LPF; Squamous Epithelial Cell Urine 1+ /LPF
[2020-09-27 02:54] LABS: Ethanol 52 mg/dL
[2020-09-27 02:55] LABS: Lactic Acid 2.9 mmol/L (0.5-2.0)
[2020-09-27] MEDS: 0.9 % Sodium Chloride 1,564.89 ML 1564.89 ML IVCONT (03:16)
[2020-09-27] MEDS: cefTRIAXone sodium 1 GM in 0.9 % Sodium Chloride 50 ML IV (03:17)
[2020-09-27 04:21] LABS: Reflex Lactate? Lactic Acid Added
[2020-09-27] MEDS: Lidocaine HCl Viscous 2 % 15 ML SOLUTION 10 ML MUCOUS MEM (04:57)
[2020-09-27] MEDS: Magnesium Hydrox/Alum Hydrox 30 ML ORAL.SUSP PO (04:58)
[2020-09-27 05:24] LABS: ~Lactic Acid-LAB USE ONLY 1.9 mmol/L (0.5-2.0)
== END 2020-09-27 06:16 | disposition home or self-care (01) ==
PROVIDERS: Emergency Provider Student in an Organized Health Care Education/Training Program
DX: N39.0 Urinary tract infection, site not specified (principal); E86.0 Dehydration; R11.2 Nausea with vomiting, unspecified; Z79.899 Other long term (current) drug therapy
CPT/HCPCS: 36415; 71045; 80053; 80320; 81001; 81003; 83605; 83690; 85025; 85610; 87086; 87088; 87186; 93005; 96361; 96365; 96375; 99284; J0696; J2405

== ENCOUNTER 2020-10-21 18:11 | Inpatient (IN) | payer MEDICARE, SELFPAY ==
--- NOTE | ~2020-10-21 | XR_ITS ---
EXAMINATION: XR CHEST CLINICAL INFORMATION: Shortness of breath COMPARISON: Chest radiograph 09/27/[address] chest 01/18/2019 TECHNIQUE: 2 views of the chest were obtained. FINDINGS: Heart size normal. Lungs are hyperinflated with emphysematous changes as seen in the past. No infiltrates, effusions, lung masses or pneumothorax is seen. XR/XR chest 2V IMPRESSION: COPD. No acute intrathoracic disease.
[2020-10-21 18:40] VITALS: BP 118/88; BP 135/79; PULSE 111; PULSE 86; RESP 24; TEMP 36.6; O2SAT 83; O2SAT 93; BMI 18.6
--- NOTE | 2020-10-21 18:51 | ECG_ITS ---
Test Reason : SOB Blood Pressure : / mmHG Vent. Rate : 112 BPM Atrial Rate : 112 BPM P-R Int : 178 ms QRS Dur : 072 ms QT Int : 346 ms P-R-T Axes : 072 072 086 degrees QTc Int : 472 ms Sinus tachycardia Otherwise normal ECG When compared with ECG of 27-SEP-2020 00:51, No significant change was found Referred By: Jessika Alaniz Electronically Signed By:MARI WALTERS
--- NOTE | 2020-10-21 18:53 | ED_ITS ---
HPI - SOB/Dyspnea General Chief Complaint: Dyspnea <Jessika Alaniz NP - Last Filed: 10/21/20 20:49> Stated Complaint: Edema SOB <JOSLYN Tran Last Filed: 10/21/20 20:49> Time Seen by Provider: 10/21/20 18:51 <Jessika Alaniz NP - Last Filed: 10/21/20 20:49> Source: patient and EMS <Jessika Alaniz NP - Last Filed: 10/21/20 20:49> Mode of arrival: EMS <Jessika Alaniz NP - Last Filed: 10/21/20 20:49> Limitations: no limitations <JOSLYN Tran Last Filed: 10/21/20 20:49> History of Present Illness HPI Narrative: 65 yo female with past medical history of COPD, HTN, hypothyroidism here with complaints of SOB x 2 days with dry cough, generalized weakness, lower extremity swelling. No chest pain, fevers, chills, productive cough. No recent travel or sick contacts. Smokes cigarettes daily, drinks 3-4 glasses of wine daily <JOSLYN Tran Last Filed: 10/21/20 20:49> Related Data Home Medications: Previous Rx's Medication Instructions Recorded levothyroxine 112 mcg tablet 112 mcg PO DAILY 90 Days #90 tab 04/15/20 amlodipine 5 mg tablet 5 mg PO DAILY 30 Days #30 tab 08/14/20 hydrochlorothiazide 25 mg tablet 25 mg PO DAILY 30 Days #30 tab 08/14/20 <JOSLYN Tran Last Filed: 10/21/20 20:49> Allergies/Adverse Reactions: Allergies Allergy/AdvReac Type Severity Reaction Status Date / Time No Known Allergies Allergy Verified 10/21/20 18:42 [No Known Allergies*] <JOSLYN Tran Last Filed: 10/21/20 20:49> Review of Systems Review of Systems: Yes all other systems are reviewed and are negative <JOSLYN Tran Last Filed: 10/21/20 20:49> Constitutional: Constitutional: Reports no additional constitutional complaints, Denies body ache(s), Denies chills, Denies fever(s), Denies headache(s) and Reports weakness <Jessika Alaniz NP - Last Filed: 10/21/20 20:49> Eyes: Eyes: Reports no additional eye complaints and Denies change in vision <Jessika Alaniz PLASTIC FABRICATOR - Last Filed: 10/21/20 20:49> ENT: Reports system reviewed and no additional complaints, except as documented, Denies dizziness, Denies headache(s), Denies nasal congestion, Denies nasal discharge and Denies neck pain <Jessika Alaniz PLASTIC FABRICATOR - Last Filed: 10/21/20 20:49> Cardiovascular: Cardiovascular: Reports no additional cardiovascular complaints, Denies chest pain, Reports leg edema and Reports dyspnea <Jessika Alaniz NP - Last Filed: 10/21/20 20:49> Respiratory: Respiratory: Reports no additional respiratory complaints, Reports cough and Reports dyspnea <Jessika Alaniz NP - Last Filed: 10/21/20 20:49> Gastrointestinal: Gastrointestinal: Reports no additional gastrointestinal complaints, Denies abdominal pain, Denies diarrhea, Denies nausea and Denies vomiting <Jessika Alaniz NP - Last Filed: 10/21/20 20:49> Genitourinary: Genitourinary: Reports no additional female genitourinary complaints and Denies urinary incontinence <Jessika Alaniz NP - Last Filed: 10/21/20 20:49> Musculoskeletal: Musculoskeletal: Reports no additional musculoskeletal complaints, Denies back pain, Denies arthralgias, Denies joint swelling, Denies neck pain, Denies numbness and Denies tingling <Jessika Alaniz NP - Last Filed: 10/21/20 20:49> Integumentary/Breasts: Skin/Breast: Reports system reviewed and no additional complaints, except as docu and Denies rash <Jessika Alaniz NP - Last Filed: 10/21/20 20:49> Neurologic: Reports system reviewed and no additional complaints, except as do cumented, Denies Abnormal speech present, Denies dizziness, Denies headache(s), Denies numbness, Denies tingling and Reports weakness <Jessika Alaniz NP - Last Filed: 10/21/20 20:49> [facility] Past Medical History Attestation statement: The following information was validated with the patient. <Jessika Alaniz NP - Last Filed: 10/21/20 20:49> Source: old records reviewed and nursing notes reviewed <Jessika Alaniz NP - Last Filed: 10/21/20 20:49> Medical History: Medical History Alcohol abuse COPD (chronic obstructive pulmonary disease) Essential hypertension Hypothyroidism <Jessika Alaniz NP - Last Filed: 10/21/20 20:49> Social History Social History: Social History Alcohol intake: current Alcohol intake frequency: 3 or more drinks per day Alcohol type: wine Patient Tobacco Use Status: Current everyday Tobacco user Tobacco use type: Cigarette Cigarettes Per Day: 15 Smoked in Last 30 Days: Yes Advance Directives: No Advance Directives Information Provided: Yes <Jessika Alaniz NP - Last Filed: 10/21/20 20:49> Physical Exam Vital Signs: Vital Signs: Last Vital Signs Temp 97.8 F 10/21/20 22:37 Pulse 113 H 10/21/20 22:37 Resp 22 H 10/21/20 22:37 BP 161/85 H 10/21/20 22:37 Pulse Ox 94 10/21/20 22:37 Body Mass Index 18.6 <Jessika Alaniz NP - Last Filed: 10/21/20 20:49> Vital Signs: Last Vital Signs Temp 97.8 F 10/21/20 22:37 Pulse 113 H 10/21/20 22:37 Resp 22 H 10/21/20 22:37 BP 161/85 H 10/21/20 22:37 Pulse Ox 94 10/21/20 22:37 Body Mass Index 18.6 <Ama Truong MD - Last Filed: 10/21/20 23:19> Const: General: cooperative, healthy appearing, comfortable and no acute distress <Jessika Alaniz NP - Last Filed: 10/21/20 20:49> Orientation/consciousness: patient oriented x3 <Jessika Alaniz NP - Last Filed: 10/21/20 20:49> Limitations: no limitations <Jessika Alaniz NP - Last Filed: 10/21/20 20:49> HENMT: Head: Yes normal to inspection <Jessika Alaniz NP - Last Filed: 10/21/20 20:49> Ears: hearing grossly normal bilaterally <Jessika Alaniz NP - Last Filed: 10/21/20 20:49> General nose exam: Normal external nose present <Jessika Alaniz NP - Last Filed: 10/21/20 20:49> Face and sinus: Yes normal facial exam <Jessika Alaniz NP - Last Filed: 10/21/20 20:49> Mouth: Normal oral and palatal mucosa present <Jessika Alaniz NP - Last Filed: 10/21/20 20:49> Throat: Yes posterior oropharynx normal <Jessika Alaniz NP - Last Filed: 10/21/20 20:49> Eyes: General: appearance normal, both eyes and all related structures <Jessika Alaniz NP - Last Filed: 10/21/20 20:49> Pupils: Equal, round and reactive pupils present <Jessika Alaniz NP - Last Filed: 10/21/20 20:49> Neck: Neck: Yes normal visual inspection <Jessika Alaniz NP - Last Amrik ed: 10/21/20 20:49> Chest: Chest palpation & inspection: normal inspection of the chest <Jessika Alaniz NP - Last Filed: 10/21/20 20:49> Resp: Other: Mild expiratory wheezing <Jessika Alaniz NP - Last Filed: 10/21/20 20:49> Effort & Inspection: normal respiratory effort <Jessika Alaniz NP - Last Filed: 10/21/20 20:49> Cardio: Rate: regular rate <Jessika Alainz NP - Last Filed: 10/21/20 20:49> Rhythm: regular rhythm <Jessika Alaniz NP - Last Filed: 10/21/20 20:49> Peripheral pulses: Peripheral pulses 2+ throughout <Jessika Alaniz NP - Last Filed: 10/21/20 20:49> GI: Inspection: Yes normal to inspection <Jessika Alaniz NP - Last Filed: 10/21/20 20:49> Palpation (GI): Soft to palpation and nontender <Jessika Alaniz NP - Last Filed: 10/21/20 20:49> Auscultation: normal bowel sounds <Jessika Alaniz NP - Last Filed: 10/21/20 20:49> Back/Spine/Pelvis: Thoracic/Lumbar Spine: thoracic and lumbar spine normal to inspection <Jessika Alaniz NP - Last Filed: 10/21/20 20:49> Skin: General skin exam: no rashes or lesions noted <Jessika Alaniz NP - Last Filed: 10/21/20 20:49> Neuro: General: patient oriented x3, no focal motor deficits and normal sensation to monofilament <Jessika Alaniz NP - Last Filed: 10/21/20 20:49> Cranial nerves: Yes Equal, round and reactive pupils present <Jessika Alaniz NP - Last Filed: 10/21/20 20:49> Cognition (Neuro): normal cognition <Jessika Alaniz NP - Last Filed: 10/21/20 20:49> Speech: No Abnormal speech present <Jessika Alaniz NP - Last Filed: 10/21/20 20:49> Gait exam (Neuro): Normal gait present <Jessika Alaniz NP - Last Filed: 10/21/20 20:49> Motor exam (neuro): 5/5 motor strength present throughout <Jessika Alaniz NP - Last Filed: 10/21/20 20:49> Extrem: General: Yes normal to inspection, Yes no calf tenderness and Yes edema (bilateral nonpitting edema. 1+ extending over ankles) <Jessika Alaniz NP - Last Filed: 10/21/20 20:49> Course Course Course Narrative: 65-year-old female here with shortness of breath, weakness, lower extremity swelling for the last few days. On exam mild expiratory wheezing. No respiratory distress. There is 1+ nonpit ting bilateral lower extremity swelling. Patient will need labs, chest x-ray, EKG. 2100-Sign out to Dr Truong pending above. <Jessika Alaniz NP - Last Filed: 10/21/20 20:49> Patient's oxygen saturation drops to 86% with minimal exertion in her room such as sitting up. Patient does not use oxygen at home, currently patient is a 2 L saturating 90%. At this time, sepsis is not suspected, patient being empirically treated with antibiotics for COPD exacerbation. Patient breathing comfortably. Patient still feels weak. Urinalysis is pending and patient has not provided any urine (22:20). I discussed the patient with Dr. Ozuna, pt being admitted <Ama Truong MD - Last Filed: 10/21/20 23:19> MDM - SOB/Dyspnea Differential Diagnosis Differential diagnosis: Likely acute exacerbation of chronic obstructive airways disease, congestive heart failure and pneumonia <Jessika Alaniz NP - Last Filed: 10/21/20 20:49> Medical Records Attestation: I reviewed the patient's medical records. <Jessika Alaniz NP - Last Filed: 10/21/20 20:49> Lab Data Attestation: I reviewed the patient's lab results. <Jessika Alaniz NP - Last Filed: 10/21/20 20:49> Result diagrams: : 10/21/20 20:30 10/21/20 20:30 <Jessika Alaniz NP - Last Filed: 10/21/20 20:49> Labs: Lab Results 10/21/20 10/21/20 10/21/20 Range/Units 20:30 20:30 20:30 WBC 6.1 (4.8-10.8) X10*3/uL RBC 4.07 L (4.20-5.50) X10*6/uL Hgb 14.3 (12.0-16.0) g/dl Hct 39.1 (37-47) % MCV 96.1 (80-98) fL MCH 35.1 H (27.0-33.0) pg MCHC 36.6 H (31.0-35.0) g/dl RDW 13.6 (11.0-16.0) % Plt Count 240 D (160-400) X10*3/uL MPV 9.2 L (9.4-12.3) fL Immature Gran % (Auto) 0.3 (0.0-0.4) % Neut % (Auto) 63.8 (45-73) % Lymph % (Auto) 27.1 (20-40) % Starr % (Auto) 6.7 (2-11) % Eos % (Auto) 1.6 (0-4) % Baso % (Auto) 0.5 (0-2) % Lymph # (Auto) 1.7 (1.2-4.9) X10*3/uL Starr # (Auto) 0.4 (0.1-1.2) X10*3/uL Eos # (Auto) 0.1 (0.0-0.4) X10*3/uL Baso # (Auto) 0.0 (0.0-0.2) X10*3/uL Abs Immat Gran (auto) 0.02 (0.00-0.03) X10*3/uL Absolute Neuts (auto) 3.9 (2.0-8.3) X10*3/uL Absolute Nucleated RBC 0.000 (0.0-0.012) X10*3/uL Nucleated RBC % (auto) 0.0 (0.0-0.2) /100WBC Sodium 135 (135-145) mmol/L Potassium 3.2 L (3.3-5.1) mmol/L Chloride 95 L (96-108) mmol/L Carbon Dioxide 22 (22-29) mmol/L Anion Gap 21 H (12-20) BUN 6 L (9-16) mg/dL Creatinine 0.63 (0.5-1.4) mg/dL Estim Creat Clear Calc 73.3 Estimated GFR > 60 Random Glucose 84 (60-115) mg/dL Lactic Acid (0.5-2.0) mmol/L Calcium 9.3 (8.4-10.2) mg/dL Magnesium 1.5 L (1.6-2.6) mg/dL Total Bilirubin 1.1 H (0.0-1.0) mg/dL Direct Bilirubin 0.4 (0.0-0.5) mg/dL AST 49 H D (5-31) U/L ALT 77 H (0-31) U/L Alkaline Phosphatase 71 (39-117) U/L Total Creatine Kinase 44 (26-140) U/L Troponin I High Sens 46.9 H* (<3.5-17.0) ng/L B-Natriuretic Peptide 52 (<100) pg/mL Total Protein 6.1 L (6.5-8.0) g/dL Albumin 3.7 (3.5-5.0) g/dL Lipase 16 (8-78) U/L TSH 8.68 H (0.32-4.0) uIU/mL Free T4 0.63 L (0.71-1.85) ng/dL Ethyl Alcohol mg/dL COVID-19 ([facility]) (Negative) COVID-19 Clin Com 10/21/20 10/21/20 10/21/20 Range/Units 20:30 20:30 22:07 WBC (4.8-10.8) X10*3/uL RBC (4.20-5.50) X10*6/uL Hgb (12.0-16.0) g/dl Hct (37-47) % MCV (80-98) fL MCH (27.0-33.0) pg MCHC (31.0-35.0) g/dl RDW (11.0-16.0) % Plt Count (160-400) X10*3/uL MPV (9.4-12.3) fL Immature Gran % (Auto) (0.0-0.4) % Neut % (Auto) (45-73) % Lymph % (Auto) (20-40) % Starr % (Auto) (2-11) % Eos % (Auto) (0-4) % Baso % (Auto) (0-2) % Lymph # (Auto) (1.2-4.9) X10*3/uL Starr # (Auto) (0.1-1.2) X10*3/uL Eos # (Auto) (0.0-0.4) X10*3/uL Baso # (Auto) (0.0-0.2) X10*3/uL Abs Immat Gran (auto) (0.00-0.03) X10*3/uL Absolute Neuts (auto) (2.0-8.3) X10*3/uL Absolute Nucleated RBC (0.0-0.012) X10*3/uL Nucleated RBC % (auto) (0.0-0.2) /100WBC Sodium (135-145) mmol/L Potassium (3.3-5.1) mmol/L Chloride (96-108) mmol/L Carbon Dioxide (22-29) mmol/L Anion Gap (12-20) BUN (9-16) mg/dL Creatinine (0.5-1.4) mg/dL Estim Creat Clear Calc Estimated GFR Random Glucose (60-115) mg/dL Lactic Acid (0.5-2.0) mmol/L Calcium (8.4-10.2) mg/dL Magnesium (1.6-2.6) mg/dL Total Bilirubin (0.0-1.0) mg/dL Direct Bilirubin (0.0-0.5) mg/dL AST (5-31) U/L ALT (0-31) U/L Alkaline Phosphatase (39-117) U/L Total Creatine Kinase (26-140) U/L Troponin I High Sens 45.0 H* (<3.5-17.0) ng/L B-Natriuretic Peptide (<100) pg/mL Total Protein (6.5-8.0) g/dL Albumin (3.5-5.0) g/dL Lipase (8-78) U/L TSH (0.32-4.0) uIU/mL Free T4 (0.71-1.85) ng/dL Ethyl Alcohol < 10 mg/dL COVID-19 ([facility]) Negative (Negative) COVID-19 Clin Com See Note 10/21/20 Range/Units 22:07 WBC (4.8-10.8) X10*3/uL RBC (4.20-5.50) X10*6/uL Hgb (12.0-16.0) g/dl Hct (37-47) % MCV (80-98) fL MCH (27.0-33.0) pg MCHC (31.0-35.0) g/dl RDW (11.0-16.0) % Plt Count (160-400) X10*3/uL MPV (9.4-12.3) fL Immature Gran % (Auto) (0.0-0.4) % Neut % (Auto) (45-73) % Lymph % (Auto) (20-40) % Starr % (Auto) (2-11) % Eos % (Auto) (0-4) % Baso % (Auto) (0-2) % Lymph # (Auto) (1.2-4.9) X10*3/uL Starr # (Auto) (0.1-1.2) X10*3/uL Eos # (Auto) (0.0-0.4) X10*3/uL Baso # (Auto) (0.0-0.2) X10*3/uL Abs Immat Gran (auto) (0.00-0.03) X10*3/uL Absolute Neuts (auto) (2.0-8.3) X10*3/uL Absolute Nucleated RBC (0.0-0.012) X10*3/uL Nucleated RBC % (auto) (0.0-0.2) /100WBC Sodium (135-145) mmol/L Potassium (3.3-5.1) mmol/L Chloride (96-108) mmol/L Carbon Dioxide (22-29) mmol/L Anion Gap (12-20) BUN (9-16) mg/dL Creatinine (0.5-1.4) mg/dL Estim Creat Clear Calc Estimated GFR Random Glucose (60-115) mg/dL Lactic Acid 1.8 (0.5-2.0) mmol/L Calcium (8.4-10.2) mg/dL Magnesium (1.6-2.6) mg/dL Total Bilirubin (0.0-1.0) mg/dL Direct Bilirubin (0.0-0.5) mg/dL AST (5-31) U/L ALT (0-31) U/L Alkaline Phosphatase (39-117) U/L Total Creatine Kinase (26-140) U/L Troponin I High Sens (<3.5-17.0) ng/L B-Natriuretic Peptide (<100) pg/mL Total Protein (6.5-8.0) g/dL Albumin (3.5-5.0) g/dL Lipase (8-78) U/L TSH (0.32-4.0) uIU/mL Free T4 (0.71-1.85) ng/dL Ethyl Alcohol mg/dL COVID-19 ([facility]) (Negative) COVID-19 Clin Com <Jessika Richardsonlewski, PLASTIC FABRICATOR - Last Filed: 10/21/20 20:49> Lab Results 10/21/20 10/21/20 10/21/20 Range/Units 20:30 20:30 20:30 WBC 6.1 (4.8-10.8) X10*3/uL RBC 4.07 L (4.20-5.50) X10*6/uL Hgb 14.3 (12.0-16.0) g/dl Hct 39.1 (37-47) % MCV 96.1 (80-98) fL MCH 35.1 H (27.0-33.0) pg MCHC 36.6 H (31.0-35.0) g/dl RDW 13.6 (11.0-16.0) % Plt Count 240 D (160-400) X10*3/uL MPV 9.2 L (9.4-12.3) fL Immature Gran % (Auto) 0.3 (0.0-0.4) % Neut % (Auto) 63.8 (45-73) % Lymph % (Auto) 27.1 (20-40) % Starr % (Auto) 6.7 (2-11) % Eos % (Auto) 1.6 (0-4) % Baso % (Auto) 0.5 (0-2) % Lymph # (Auto) 1.7 (1.2-4.9) X10*3/uL Starr # (Auto) 0.4 (0.1-1.2) X10*3/uL Eos # (Auto) 0.1 (0.0-0.4) X10*3/uL Baso # (Auto) 0.0 (0.0-0.2) X10*3/uL Abs Immat Gran (auto) 0.02 (0.00-0.03) X10*3/uL Absolute Neuts (auto) 3.9 (2.0-8.3) X10*3/uL Absolute Nucleated RBC 0.000 (0.0-0.012) X10*3/uL Nucleated RBC % (auto) 0.0 (0.0-0.2) /100WBC Sodium 135 (135-145) mmol/L Potassium 3.2 L (3.3-5.1) mmol/L Chloride 95 L (96-108) mmol/L Carbon Dioxide 22 (22-29) mmol/L Anion Gap 21 H (12-20) BUN 6 L (9-16) mg/dL Creatinine 0.63 (0.5-1.4) mg/dL Estim Creat Clear Calc 73.3 Estimated GFR > 60 Random Glucose 84 (60-115) mg/dL Lactic Acid (0.5-2.0) mmol/L Calcium 9.3 (8.4-10.2) mg/dL Magnesium 1.5 L (1.6-2.6) mg/dL Total Bilirubin 1.1 H (0.0-1.0) mg/dL Direct Bilirubin 0.4 (0.0-0.5) mg/dL AST 49 H D (5-31) U/L ALT 77 H (0-31) U/L Alkaline Phosphatase 71 (39-117) U/L Total Creatine Kinase 44 (26-140) U/L Troponin I High Sens 46.9 H* (<3.5-17.0) ng/L B-Natriuretic Peptide 52 (<100) pg/mL Total Protein 6.1 L (6.5-8.0) g/dL Albumin 3.7 (3.5-5.0) g/dL Lipase 16 (8-78) U/L TSH 8.68 H (0.32-4.0) uIU/mL Free T4 0.63 L (0.71-1.85) ng/dL Ethyl Alcohol mg/dL COVID-19 ([facility]) (Negative) COVID-19 Clin Com 10/21/20 10/21/20 10/21/20 Range/Units 20:30 20:30 22:07 WBC (4.8-10.8) X10*3/uL RBC (4.20-5.50) X10*6/uL Hgb (12.0-16.0) g/dl Hct (37-47) % MCV (80-98) fL MCH (27.0-33.0) pg MCHC (31.0-35.0) g/dl RDW (11.0-16.0) % Plt Count (160-400) X10*3/uL MPV (9.4-12.3) fL Immature Gran % (Auto) (0.0-0.4) % Neut % (Auto) (45-73) % Lymph % (Auto) (20-40) % Starr % (Auto) (2-11) % Eos % (Auto) (0-4) % Baso % (Auto) (0-2) % Lymph # (Auto) (1.2-4.9) X10*3/uL Starr # (Auto) (0.1-1.2) X10*3/uL Eos # (Auto) (0.0-0.4) X10*3/uL Baso # (Auto) (0.0-0.2) X10*3/uL Abs Immat Gran (auto) (0.00-0.03) X10*3/uL Absolute Neuts (auto) (2.0-8.3) X10*3/uL Absolute Nucleated RBC (0.0-0.012) X10*3/uL Nucleated RBC % (auto) (0.0-0.2) /100WBC Sodium (135-145) mmol/L Potassium (3.3-5.1) mmol/L Chloride (96-108) mmol/L Carbon Dioxide (22-29) mmol/L Anion Gap (12-20) BUN (9-16) mg/dL Creatinine (0.5-1.4) mg/dL Estim Creat Clear Calc Estimated GFR Random Glucose (60-115) mg/dL Lactic Acid (0.5-2.0) mmol/L Calcium (8.4-10.2) mg/dL Magnesium (1.6-2.6) mg/dL Total Bilirubin (0.0-1.0) mg/dL Direct Bilirubin (0.0-0.5) mg/dL AST (5-31) U/L ALT (0-31) U/L Alkaline Phosphatase (39-117) U/L Total Creatine Kinase (26-140) U/L Troponin I High Sens 45.0 H* (<3.5-17.0) ng/L B-Natriuretic Peptide (<100) pg/mL Total Protein (6.5-8.0) g/dL Albumin (3.5-5.0) g/dL Lipase (8-78) U/L TSH (0.32-4.0) uIU/mL Free T4 (0.71-1.85) ng/dL Ethyl Alcohol < 10 mg/dL COVID-19 ([facility]) Negative (Negative) COVID-19 Clin Com See Note 10/21/20 Range/Units 22:07 WBC (4.8-10.8) X10*3/uL RBC (4.20-5.50) X10*6/uL Hgb (12.0-16.0) g/dl Hct (37-47) % MCV (80-98) fL MCH (27.0-33.0) pg MCHC (31.0-35.0) g/dl RDW (11.0-16.0) % Plt Count (160-400) X10*3/uL MPV (9.4-12.3) fL Immature Gran % (Auto) (0.0-0.4) % Neut % (Auto) (45-73) % Lymph % (Auto) (20-40) % Starr % (Auto) (2-11) % Eos % (Auto) (0-4) % Baso % (Auto) (0-2) % Lymph # (Auto) (1.2-4.9) X10*3/uL Starr # (Auto) (0.1-1.2) X10*3/uL Eos # (Auto) (0.0-0.4) X10*3/uL Baso # (Auto) (0.0-0.2) X10*3/uL Abs Immat Gran (auto) (0.00-0.03) X10*3/uL Absolute Neuts (auto) (2.0-8.3) X10*3/uL Absolute Nucleated RBC (0.0-0.012) X10*3/uL Nucleated RBC % (auto) (0.0-0.2) /100WBC Sodium (135-145) mmol/L Potassium (3.3-5.1) mmol/L Chloride (96-108) mmol/L Carbon Dioxide (22-29) mmol/L Anion Gap (12-20) BUN (9-16) mg/dL Creatinine (0.5-1.4) mg/dL Estim Creat Clear Calc Estimated GFR Random Glucose (60-115) mg/dL Lactic Acid 1.8 (0.5-2.0) mmol/L Calcium (8.4-10.2) mg/dL Magnesium (1.6-2.6) mg/dL Total Bilirubin (0.0-1.0) mg/dL Direct Bilirubin (0.0-0.5) mg/dL AST (5-31) U/L ALT (0-31) U/L Alkaline Phosphatase (39-117) U/L Total Creatine Kinase (26-140) U/L Troponin I High Sens (<3.5-17.0) ng/L B-Natriuretic Peptide (<100) pg/mL Total Protein (6.5-8.0) g/dL Albumin (3.5-5.0) g/dL Lipase (8-78) U/L TSH (0.32-4.0) uIU/mL Free T4 (0.71-1.85) ng/dL Ethyl Alcohol mg/dL COVID-19 ([facility]) (Negative) COVID-19 Clin Com <Ama Truong MD - Last Filed: 10/21/20 23:19> Imaging Data Chest x-ray: Attestation: I personally reviewed and interpreted this imaging study as follows: <Jessika Alaniz NP - Last Filed: 10/21/20 20:49> Radiologist's impression: EXAMINATION: XR CHEST CLINICAL INFORMATION: Shortness of breath COMPARISON: Chest radiograph 09/27/[address] chest 01/18/2019 TECHNIQUE: 2 views of the chest were obtained. FINDINGS: Heart size normal. Lungs are hyperinflated with emphysematous changes as seen in the past. No infiltrates, effusions, lung masses or pneumothorax is seen. XR/XR chest 2V IMPRESSION: COPD. No acute intrathoracic disease. <Jessika Alaniz NP - Last Filed: 10/21/20 20:49> ECG Data Attestation: I personally reviewed and interpreted this ECG as follows: <Jessika Alaniz NP - Last Filed: 10/21/20 20:49> ECG interpretation date: 10/21/20 <Jessika Alaniz NP - Last Filed: 10/21/20 20:49> ECG interpretation time: 20:32 <Jessika Alaniz NP - Last Filed: 10/21/20 20:49> Interpretation: ST with rate 112, normal pr, normal qrs, normal qtc Seen and signed by Dr Segura <Jessika Alaniz NP - Last Filed: 10/21/20 20:49> Discharge Plan Discharge Clinical Impression: COPD (chronic obstructive pulmonary disease), Weakness <Jessika Alaniz NP - Last Filed: 10/21/20 20:49> Patient Disposition: Admitted As Inpatient <Jessika Alaniz NP - Last Filed: 10/21/20 20:49> Prescriptions: No Action levothyroxine 112 mcg tablet 112 mcg PO DAILY 90 Days Qty: 90 RF: 1 hydrochlorothiazide 25 mg tablet 25 mg PO DAILY 30 Days Qty: 30 RF: 6 amlodipine 5 mg tablet 5 mg PO DAILY 30 Days Qty: 30 RF: 3 <Jessika Alaniz NP - Last Filed: 10/21/20 20:49>
[2020-10-21] MEDS: Albuterol/Iprat 2.5/0.5MG 3 ML AMPUL.NEB INHALE (19:28)
[2020-10-21 19:29] VITALS: PULSE 113; O2SAT 92
[2020-10-21] MEDS: methylPREDNISolone Sod Succ 125 MG/2 ML VIAL IVPUSH (20:43)
[2020-10-21 20:51] LABS: MANUAL DIFF FLAG NO
[2020-10-21 20:53] LABS: Basophils Percent Auto 0.5 % (0-2); Eosinophils Absolute Auto 0.1 X10*3/uL (0.0-0.4); Eosinophils Percent Auto 1.6 % (0-4); Hematocrit 39.1 % (37-47); Hemoglobin 14.3 g/dl (12.0-16.0); Imm Gran Abs Auto 0.02 X10*3/uL (0.00-0.03); Imm Gran Pct Auto 0.3 % (0.0-0.4); Lymphocytes Absolute Auto 1.7 X10*3/uL (1.2-4.9); Lymphocytes Percent Auto 27.1 % (20-40); Mean Corpuscular HGB Conc 36.6 g/dl (31.0-35.0); Mean Corpuscular Hemoglobin 35.1 pg (27.0-33.0); Mean Corpuscular Volume 96.1 fL (80-98); Mean Platelet Volume 9.2 fL (9.4-12.3); Monocytes Absolute Auto 0.4 X10*3/uL (0.1-1.2); Monocytes Percent Auto 6.7 % (2-11); Neutrophils Absolute Auto 3.9 X10*3/uL (2.0-8.3); Neutrophils Percent Auto 63.8 % (45-73); Platelet Count 240 X10*3/uL (160-400); Red Blood Count 4.07 X10*6/uL (4.20-5.50); Red Cell Distribution Width 13.6 % (11.0-16.0); White Blood Count 6.1 X10*3/uL (4.8-10.8)
[2020-10-21 21:09] LABS: COVID-19 Test Negative (Negative)
[2020-10-21 21:12] LABS: Ethanol < 10 mg/dL
[2020-10-21 21:24] LABS: B Type Natriuretic Peptide 52 pg/mL (<100); Troponin-I High Sensitivity 46.9 ng/L (<3.5-17.0)
[2020-10-21 21:32] LABS: Alanine Aminotransferase 77 U/L (0-31); Albumin Level 3.7 g/dL (3.5-5.0); Alkaline Phosphatase 71 U/L (39-117); Anion Gap 21 (12-20); Aspartate Amino Transferase 49 U/L (5-31); Bilirubin Direct 0.4 mg/dL (0.0-0.5); Bilirubin Total 1.1 mg/dL (0.0-1.0); Blood Urea Nitrogen 6 mg/dL (9-16); Calcium 9.3 mg/dL (8.4-10.2); Carbon Dioxide 22 mmol/L (22-29); Chloride 95 mmol/L (96-108); Creatinine Clr Calc Pharmacy 73.3; Estimated Glomerular Filt Rate > 60; Glucose Random 84 mg/dL (60-115); Lipase 16 U/L (8-78); Magnesium 1.5 mg/dL (1.6-2.6); Potassium 3.2 mmol/L (3.3-5.1); Sodium 135 mmol/L (135-145); Total Protein 6.1 g/dL (6.5-8.0)
[2020-10-21 22:34] LABS: Lactic Acid 1.8 mmol/L (0.5-2.0)
[2020-10-21] MEDS: levoFLOXacin/D5W 500 MG/100 ML PIGGYBACK 100 MG IV (22:36)
[2020-10-21] MEDS: 0.9 % Sodium Chloride 1,000 ML 999 ML IVCONT (22:36)
[2020-10-21 22:37] VITALS: BP 161/85; PULSE 113; RESP 22; TEMP 36.6; O2SAT 94
[2020-10-21 22:37] LABS: TSH reflex Free T4 8.68 uIU/mL (0.32-4.0)
--- NOTE | 2020-10-21 22:40 | PC.NURSE ---
PT AMBULATING INDEPENDENTLY TO BATHROOM. LABOR OF BREATHING SIGNIFICANTLY IMPROVED SINCE NEB TX, THOUGH REPORTS ONGOING SOB. DENIES ANY CP.
[2020-10-21 23:10] LABS: Free T4 (Free Thyroxine) 0.63 ng/dL (0.71-1.85)
[2020-10-22] VITALS (9 sets, daily range): BP systolic 106–135; BP diastolic 56–77; PULSE 81–109; RESP 15–22; TEMP 36.3–36.6; O2SAT 92–98; BMI 18.6
[2020-10-22] MEDS: Potassium Chloride Packet 20 MEQ PACKET 40 MEQ PO (00:52)
--- NOTE | 2020-10-22 05:13 | P.HPHOSP_ITS ---
History of Present Illness Date of Service: 10/21/20 Chief Complaint: Shortness of breath This 65-year-old female with past medical history of COPD, HTN, hypothyroidism, alcohol abuse who presents to the hospital with complaints of patient is also complaining of generalized weakness, as well as lower extremity edema around the feet and ankle that also started about 2 days ago. She denies orthopnea or PND. She reports that the cough is nonproductive. She has had chills with no fever, denies any chest pain, no headache or change in vision, no palpitations, no abdominal pain nausea or vomiting, no diarrhea constipation, no urinary symptoms. On arrival to the ED patient hemodynamically stable with vital significant for temp of 97.9?, heart rate of 111, respiratory rate of 24, blood pressure 135/79, satting 93% on room air. Apparently while in the ED patient's O2 did drop to 87% on room air and patient was placed on 2 L of oxygen for short period of time. Patient currently on room air. Diabetes C count of 6.1, hemoglobin of 14.3, potassium of 3.2, magnesium level of 1.5, AST of 49, ALT of 77, high sensitivity troponin of 46.9 that it decreased to 45, TSH of 8.68, free thyroxine of 0.63, COVID-19 negative Chest x-ray shows no acute intrathoracic disease Past medical history as below in confirmed with patient Review of Systems Review of Systems: Yes all other systems are reviewed and are negative [facility] Medical History (Updated 10/22/20 @ 05:29 by Joseline Ozuna MD) Alcohol abuse COPD (chronic obstructive pulmonary disease) Essential hypertension Hypothyroidism Social History Alcohol intake: current Alcohol intake frequency: 3 or more drinks per day [place] hol type: wine Patient Tobacco Use Status: Current everyday Tobacco user Tobacco use type: Cigarette Cigarettes Per Day: 15 Smoked in Last 30 Days: Yes Advance Directives: No Advance Directives Information Provided: Yes Meds Allergies Allergy/AdvReac Type Severity Reaction Status Date / Time No Known Allergies Allergy Verified 10/21/20 18:42 [No Known Allergies*] Physical Exam Vital Signs and Narrative: Vital Signs: Last Vital Signs Temp 97.8 F 10/21/20 22:37 Pulse 106 H 10/22/20 00:54 Resp 22 H 10/22/20 00:54 BP 118/62 10/22/20 00:54 Pulse Ox 95 10/22/20 00:54 Body Mass Index 18.6 Const: General: cooperative and no acute distress Orientation/consciousness: patient oriented x3 Eyes: General: appearance normal, both eyes and all related structures Resp: Effort & Inspection: normal respiratory effort and able to speak in complete sentences Auscultation: clear to auscultation bilaterally Cardio: Rate: regular rate Rhythm: regular rhythm GI: Palpation (GI): Soft to palpation Auscultation: normal bowel sounds Skin: General skin exam: no rashes or lesions noted Neuro: General: patient oriented x3 Cognition (Neuro): normal cognition Extrem: Other: Patient has no lower extremity edema at this time General: Yes normal to inspection and Yes no pedal edema Results Labs CBC and Chem 7: 10/21/20 20:30 10/21/20 20:30 Labs: Laboratory Results - last 24 hr 10/21/20 10/21/20 10/21/20 20:30 20:30 20:30 MCV 96.1 MCH 35.1 H MCHC 36.6 H RDW 13.6 Plt Count 240 D MPV 9.2 L Immature Gran % (Auto) 0.3 Neut % (Auto) 63.8 Lymph % (Auto) 27.1 Alpine % (Auto) 6.7 Eos % (Auto) 1.6 Baso % (Auto) 0.5 Lymph # (Auto) 1.7 Alpine # (Auto) 0.4 Eos # (Auto) 0.1 Baso # (Auto) 0.0 Abs Immat Gran (auto) 0.02 Absolute Neuts (auto) 3.9 Absolute Nucleated RBC 0.000 Nucleated RBC % (auto) 0.0 Anion Gap 21 H Estim Creat Clear Calc 73.3 Estimated GFR > 60 Random Glucose 84 Lactic Acid Calcium 9.3 Magnesium 1.5 L Total Bilirubin 1.1 H Direct Bilirubin 0.4 AST 49 H D ALT 77 H Alkaline Phosphatase 71 Total Creatine Kinase 44 Troponin I High Sens 46.9 H* B-Natriuretic Peptide 52 Total Protein 6.1 L Albumin 3.7 Lipase 16 TSH 8.68 H Free T4 0.63 L Ethyl Alcohol COVID-19 (MEGGAN) COVID-19 Clin Com 10/21/20 10/21/20 10/21/20 20:30 20:30 22:07 MCV MCH MCHC RDW Plt Count MPV Immature Gran % (Auto) Neut % (Auto) Lymph % (Auto) Alpine % (Auto) Eos % (Auto) Baso % (Auto) Lymph # (Auto) Alpine # (Auto) Eos # (Auto) Baso # (Auto) Abs Immat Gran (auto) Absolute Neuts (auto) Absolute Nucleated RBC Nucleated RBC % (auto) Anion Gap Estim Creat Clear Calc Estimated GFR Random Glucose Lactic Acid Calcium Magnesium Total Bilirubin Direct Bilirubin AST ALT Alkaline Phosphatase Total Creatine Kinase Troponin I High Sens 45.0 H* B-Natriuretic Peptide Total Protein Albumin Lipase TSH Free T4 Ethyl Alcohol < 10 COVID-19 (MEGGAN) Negative COVID-19 [facility] Com See Note 10/21/20 22:07 MCV MCH MCHC RDW Plt Count MPV Immature Gran % (Auto) Neut % (Auto) Lymph % (Auto) Alpine % (Auto) Eos % (Auto) Baso % (Auto) Lymph # (Auto) Alpine # (Auto) Eos # (Auto) Baso # (Auto) Abs Immat Gran (auto) Absolute Neuts (auto) Absolute Nucleated RBC Nucleated RBC % (auto) Anion Gap Estim Creat Clear Calc Estimated GFR Random Glucose Lactic Acid 1.8 Calcium Magnesium Total Bilirubin Direct Bilirubin AST ALT Alkaline Phosphatase Total Creatine Kinase Troponin I High Sens B-Natriuretic Peptide Total Protein Albumin Lipase TSH Free T4 Ethyl Alcohol COVID-19 (MEGGAN) COVID-19 [facility] Imaging Radiologist's Impressions: Impressions Chest X-Ray 10/21/20 18:51 IMPRESSION: COPD. No acute intrathoracic disease. Assessment and Plan (1) COPD (chronic obstructive pulmonary disease): Status: Acute (2) Acute respiratory failure with hypoxia: Status: Acute (3) Weakness: Status: Acute (4) Hypothyroidism: Qualifiers: Hypothyroidism type: unspecified Qualified Code(s): E03.9 - Hypothyroidism, unspecified Status: Acute (5) Essential hypertension: Status: Acute (6) Hypokalemia: Status: Acute (7) Hypomagnesemia: Status: Acute (8) Alcohol abuse: Status: Acute 65-year-old female with past medical history of COPD who presents to the hospital with complaints of cough, shortness of breath found to be hypoxic on room air in the ED # acute hypoxic respiratory failure - most likely secondary to COPD exacerbation, unlikely to be secondary to heart failure as patient's BNP negative with no evidence of volume overload clinically or imaging bergman - patient currently off of oxygen, satting 94% on room air - at this time will treat her with IV Solu-Medrol, DuoNebs urine is scheduled - follow respiratory status # acute COPD exacerbation - has cough, dyspnea, no sputum production - start her on DuoNebs, IV Solu-Medrol - given the mild exacerbation, patient does not require any IV antibiotics # weakness - most likely secondary to acute infection - if continues to feel weak, consider PT evaluation for rehab # hypokalemia and hypomagnesemia - repleted - follow levels although most likely K will remain low , as Mag was not repleted prior to repletion of K # alcohol abuse - pt denies hx of withdrawal - currently has no symptoms withdrawal - will start her CIWA to monitor withdrawal symptoms # hypothyroidism - TSH slightly elevated - will need follow-up palpation to review TSH in 4-6 weeks - continue home dose of levothyroxine # hypertension - stable - will continue amlodipine and hydrochlorothiazide DVT prophylaxis: Lovenox
--- NOTE | 2020-10-22 06:14 | PC.NURSE ---
Report given to S3 UZAIR Garay. Awaiting admission after 7am.
[2020-10-22 07:31] LABS: Hematocrit 38.8 % (37-47); Hemoglobin 13.8 g/dl (12.0-16.0); Imm Gran Abs Auto 0.03 X10*3/uL (0.00-0.03); Imm Gran Pct Auto 0.5 % (0.0-0.4); Lymphocytes Absolute Auto 0.5 X10*3/uL (1.2-4.9); Lymphocytes Percent Auto 8.1 % (20-40); MANUAL DIFF FLAG SCAN; Mean Corpuscular HGB Conc 35.6 g/dl (31.0-35.0); Mean Corpuscular Hemoglobin 34.9 pg (27.0-33.0); Mean Corpuscular Volume 98.2 fL (80-98); Monocytes Percent Auto 0.7 % (2-11); Neutrophils Percent Auto 90.7 % (45-73); Platelet Count 223 X10*3/uL (160-400); Red Blood Count 3.95 X10*6/uL (4.20-5.50); Red Cell Distribution Width 13.7 % (11.0-16.0); SCAN SMEAR FLAG 1; White Blood Count 5.5 X10*3/uL (4.8-10.8)
[2020-10-22 08:05] LABS: Anion Gap 14 (12-20); Blood Urea Nitrogen 6 mg/dL (9-16); Carbon Dioxide 24 mmol/L (22-29); Chloride 97 mmol/L (96-108); Creatinine Clr Calc Pharmacy 64.1; Estimated Glomerular Filt Rate > 60; Glucose Random 125 mg/dL (60-115); Potassium 3.3 mmol/L (3.3-5.1); SLIDE REVIEW VERIFIED; Sodium 132 mmol/L (135-145)
[2020-10-22 08:13] LABS: Calcium 8.6 mg/dL (8.4-10.2)
[2020-10-22] MEDS: methylPREDNISolone Sod Succ 40 MG/ML VIAL IVPUSH ×2 (08:15→17:05)
[2020-10-22] MEDS: amLODIPine Besylate 5 MG TABLET PO (08:16)
[2020-10-22] MEDS: Magnesium Sulfate/H2O 2 GM/50 ML PIGGYBACK IV (08:16)
[2020-10-22] MEDS: Levothyroxine Sodium 112 MCG TABLET PO (08:16)
[2020-10-22] MEDS: hydroCHLOROthiazide 25 MG TABLET PO (08:16)
[2020-10-22] MEDS: Enoxaparin Sodium 40 MG/0.4 ML SYRINGE SUBCUT (08:16)
[2020-10-22] MEDS: 0.9 % Sodium Chloride Flush 3 ML SYRINGE IVFLUSH ×4 (08:16→20:22)
[2020-10-22 08:51] LABS: Magnesium 1.5 mg/dL (1.6-2.6)
[2020-10-22] MEDS: Potassium Chloride ER 20 MEQ TAB.ER.PRT 40 MEQ PO (09:09)
--- NOTE | 2020-10-22 13:25 | MHC.CM.NN ---
nurse chronic care nurse note electronic medical record reviewed along with case discussed with staff nurse , met with patient she reported that she lives alone on the 4th floor apartement, she does no have a car and when she goes out she usually walks , like to the store,pharmacy, medical appointments she reported that she also walks to her medical appointments , she has been to the er x2 since January she has copd and emphysema she has no sppecial respiratory equipement at home, she reported that she has increasing shorntess of breath and her legs were sewlling, she called the ambulance when she felt worse after two days , she was admitted with diagnosis per documentaion of acute respiratroy failure and hypoxia in ra she was sT t6 87% and when on 2 liters of oxygen her oxygen sats were mat 93%, she no longer has oxygen on adn [facility] better , she aPPEARS TO STILL GET SHORT OF BREATH WHEN TALKING. DISCHARGE PLAN HOME (INDEPENDENT IN ALL ADLS AND MOBILITY) NO SERVICES (OFFERED VNA AND DECLINED) PCP DR MIREILLE THOMAS (PATIENT HAS a phone vissit with her on tuesday trsnsportation family friends or may need [facility] imm completed and left with patient educated about the importance of having a health care proxy
--- NOTE | 2020-10-22 15:09 | HO.PM.IMPN ---
Subjective Subjective Date of Service: 10/22/20 Interval History: Patient feels better shortness of breath improved, lower extremity edema resolved, patient lives alone and has history of intermittent shortness of breath and orthopnea continue to smoke half pack of cigarettes daily, and drink alcohol in evening , does not drink to get drunk but drink small amount to keep her stress away. CLOTH SANDER no headache, no dizziness CVS no chest pain, no palpitation Respiratory complaining of intermittent shortness of breath, which change in season, chronically sleeps on site due to orthopnea skin no rash Physical Exam Vital Signs: Vital Signs: Last Vital Signs Temp 97.9 F 10/22/20 11:27 Pulse 87 10/22/20 11:27 Resp 18 10/22/20 11:27 BP 118/62 10/22/20 11:27 Pulse Ox 96 10/22/20 11:27 Body Mass Index 18.6 General no acute distress. Neck is supple no JVD. CVS regular rate rhythm, Respiratory lungs diminished breath sounds, no respiratory distress, no wheeze, no rhonchi. Gastrointestinal abdomen soft, nontender, bowel sounds audible, no guarding , no rigidity. Extremities no edema. Neuro nonfocal ,speech clear. Skin no rash Objective Data Current Medications Generic Name Dose Route Start Last Admin Trade Name Freq PRN Reason Stop Dose Admin Acetaminophen 650 mg 10/22/20 06:08 Acetaminophen 325 Mg Tablet PO Q6H PRN Pain, Mild (Pain Scale 1-3) Albuterol/Ipratropium 3 ml 10/22/20 08:00 10/22/20 14:52 Albuterol/Iprat 2.5/0.5mg 3 Ml Ampul.Neb INHALE Not Given RQ4H WHILE AWAKE [facility] Albuterol/Ipratropium 3 ml 10/22/20 06:08 Albuterol/Iprat 2.5/0.5mg 3 Ml Ampul.Neb INHALE RQ4H PRN Shortness of Breath/Wheezing Amlodipine Besylate 5 mg 10/22/20 09:00 10/22/20 08:16 Amlodipine Besylate 5 Mg Tablet PO 5 mg DAILY [facility] Administration Protocol Docusate Sodium 100 mg 10/22/20 06:08 Docusate Sodium 100 Mg Capsule PO DAILY PRN Constipation Enoxaparin Sodium 40 mg 10/22/20 06:08 06/16/21 08:16 Enoxaparin Sodium 40 Mg/0.4 Ml Syringe SUBCUT 40 mg Q24H FLORA Administration Levothyroxine Sodium 112 mcg 10/22/20 06:00 10/22/20 08:16 Levothyroxine Sodium 112 Mcg Tablet PO 112 mcg DAILY@0600 FLORA Administration Methylprednisolone Sodium Succinate 40 mg 10/22/20 06:08 10/22/20 08:15 Methylprednisolone Sod Succ 40 Mg/Ml Vial IVPUSH 40 mg Q12H FLORA Administration Ondansetron HCl 4 mg 10/22/20 06:08 Ondansetron Hcl 4 Mg/2 Ml Vial IVPUSH Q8H PRN Nausea and Vomiting Sodium Chloride 3 ml 10/22/20 06:08 10/22/20 09:09 0.9 % Sodium Chloride Flush 3 Ml Syringe IVFLUSH 3 ml QSHIFT FLORA Administration Labs CBC & Chem 7: 10/22/20 07:24 10/22/20 07:24 Labs: Laboratory Results - last 24 hr 10/21/20 10/21/20 10/21/20 20:30 20:30 20:30 WBC 6.1 RBC 4.07 L Hgb 14.3 Hct 39.1 MCV 96.1 MCH 35.1 H MCHC 36.6 H RDW 13.6 Plt Count 240 D MPV 9.2 L Immature Gran % (Auto) 0.3 Neut % (Auto) 63.8 Lymph % (Auto) 27.1 Barry % (Auto) 6.7 Eos % (Auto) 1.6 Baso % (Auto) 0.5 Lymph # (Auto) 1.7 Barry # (Auto) 0.4 Eos # (Auto) 0.1 Baso # (Auto) 0.0 Abs Immat Gran (auto) 0.02 Absolute Neuts (auto) 3.9 Absolute Nucleated RBC 0.000 Nucleated RBC % (auto) 0.0 Smear Tech's Comments Sodium 135 Potassium 3.2 L Chloride 95 L Carbon Dioxide 22 Anion Gap 21 H BUN 6 L Creatinine 0.63 Estim Creat Clear Calc 73.3 Estimated GFR > 60 Random Glucose 84 Lactic Acid Calcium 9.3 Magnesium 1.5 L Total Bilirubin 1.1 H Direct Bilirubin 0.4 AST 49 H D ALT 77 H Alkaline Phosphatase 71 Total Creatine Kinase 44 Troponin I High Sens 46.9 H* B-Natriuretic Peptide 52 Total Protein 6.1 L Albumin 3.7 Lipase 16 TSH 8.68 H Free T4 0.63 L Ethyl Alcohol COVID-19 (MEGGAN) COVID-19 Clin Com 10/21/20 10/21/20 10/21/20 20:30 20:30 22:07 WBC RBC Hgb Hct MCV MCH MCHC RDW Plt Count MPV Immature Gran % (Auto) Neut % (Auto) Lymph % (Auto) Barry % (Auto) Eos % (Auto) Baso % (Auto) Lymph # (Auto) Barry # (Auto) Eos # (Auto) Baso # (Auto) Abs Immat Gran (auto) Absolute Neuts (auto) Absolute Nucleated RBC Nucleated RBC % (auto) Smear Tech's Comments Sodium Potassium Chloride Carbon Dioxide Anion Gap BUN Creatinine Estim Creat Clear Calc Estimated GFR Random Glucose Lactic Acid Calcium Magnesium Total Bilirubin Direct Bilirubin AST ALT Alkaline Phosphatase Total Creatine Kinase Troponin I High Sens 45.0 H* B-Natriuretic Peptide Total Protein Albumin Lipase TSH Free T4 Ethyl Alcohol < 10 COVID-19 (MEGGAN) Negative COVID-19 Clin Com See Note 10/21/20 10/22/20 10/22/20 22:07 07:24 07:24 WBC 5.5 RBC 3.95 L Hgb 13.8 Hct 38.8 MCV 98.2 H MCH 34.9 H MCHC 35.6 H RDW 13.7 Plt Count 223 MPV 9.0 L Immature Gran % (Auto) 0.5 H Neut % (Auto) 90.7 H Lymph % (Auto) 8.1 L Barry % (Auto) 0.7 L Eos % (Auto) 0.0 Baso % (Auto) 0.0 Lymph # (Auto) 0.5 L Barry # (Auto) 0.0 L Eos # (Auto) 0.0 Baso # (Auto) 0.0 Abs Immat Gran (auto) 0.03 Absolute Neuts (auto) 5.0 Absolute Nucleated RBC 0.000 Nucleated RBC % (auto) 0.0 Smear Tech's Comments VERIFIED Sodium 132 L Potassium 3.3 Chloride 97 Carbon Dioxide 24 Anion Gap 14 BUN 6 L Creatinine 0.72 Estim Creat Clear Calc 64.1 Estimated GFR > 60 Random Glucose 125 H D Lactic Acid 1.8 Calcium 8.6 D Magnesium 1.5 L Total Bilirubin Direct Bilirubin AST ALT Alkaline Phosphatase Total Creatine Kinase Troponin I High Sens B-Natriuretic Peptide Total Protein Albumin Lipase TSH Free T4 Ethyl Alcohol COVID-19 (MEGGAN) COVID-19 Clin Com Quality Stroke Does the patient have a stroke diagnosis?: No VTE Prior VTE?: No VTE Risk Level:: Medical - moderate - high VTE Device Contraindication: N/A - Device Ordered VTE Drug Contraindication: N/A - Med Ordered Assessment and Plan (1) Acute respiratory failure with hypoxia: Status: Acute (2) Alcohol abuse: Status: Acute (3) Hypomagnesemia: Status: Acute (4) Hypokalemia: Status: Acute (5) COPD (chronic obstructive pulmonary disease): Status: Acute (6) Weakness: Status: Acute (7) Hypothyroidism: Status: Acute (8) Essential hypertension: Status: Acute Assessment and Plan: 65-year-old female with past medical history of COPD who presents to the hospital with complaints of cough, shortness of breath found to be hypoxic on room air in the ED # acute hypoxic respiratory failure likely secondary to COPD exacerbation, unlikely to be secondary to heart failure as BNP negative with no evidence of volume overload clinically or on chest x-ray oxygen, satting 94% on room air, strongly recommend to abstain from smoking, patient declining nicotine patch continue IV Solumedrol day 2 switched to by mouth prednisone Tomorrow, patient refusing schedule DuoNeb, will change to as needed, add incentive spirometry and as needed cough medication # generalized weakness, most likely secondary to acute infection, COPD exac, poor nutrition with low potassium and magnesium, encourage out of bed to chair if unable to do will obtain a PT # hypokalemia and hypomagnesemia Will replace aggressively and follow magnesium and electrolytes # alcohol abuse - pt. denies hx of withdrawal, currently has no symptoms withdrawal continue CIWA to monitor withdrawal symptoms # hypothyroidism - TSH slightly elevated, as per patient she has not taken her meds for few weeks due to palpitation, recommend to repeat TSH in 6 weeks and continue current dosage # hypertension blood pressure will discontinue hydrochlorothiazide and continue amlodipine , follow BP DVT prophylaxis: Lovenox
[2020-10-23] VITALS: BP 119/62; PULSE 90; RESP 16; TEMP 36.9; O2SAT 95
[2020-10-23 04:00] VITALS: BP 120/73; PULSE 80; RESP 16; TEMP 37.1; O2SAT 95
[2020-10-23] MEDS: methylPREDNISolone Sod Succ 40 MG/ML VIAL IVPUSH (05:37)
[2020-10-23] MEDS: Enoxaparin Sodium 40 MG/0.4 ML SYRINGE SUBCUT (05:38)
[2020-10-23] MEDS: Levothyroxine Sodium 112 MCG TABLET PO (05:38)
[2020-10-23 06:00] VITALS: BMI 17.4
[2020-10-23 07:06] LABS: Anion Gap 13 (12-20); Blood Urea Nitrogen 8 mg/dL (9-16); Calcium 9.1 mg/dL (8.4-10.2); Carbon Dioxide 27 mmol/L (22-29); Chloride 99 mmol/L (96-108); Creatinine Clr Calc Pharmacy 67.7; Estimated Glomerular Filt Rate > 60; Glucose Random 101 mg/dL (60-115); Magnesium 1.8 mg/dL (1.6-2.6); Potassium 3.2 mmol/L (3.3-5.1); Sodium 136 mmol/L (135-145)
[2020-10-23 07:37] VITALS: BP 113/69; PULSE 77; RESP 18; TEMP 36.3; O2SAT 91
[2020-10-23 08:16] VITALS: BP 121/70; PULSE 76
[2020-10-23] MEDS: amLODIPine Besylate 5 MG TABLET PO (08:16)
[2020-10-23] MEDS: predniSONE 20 MG TABLET PO (08:17)
[2020-10-23] MEDS: Potassium Chloride ER 20 MEQ TAB.ER.PRT 40 MEQ PO (08:17)
[2020-10-23] MEDS: 0.9 % Sodium Chloride Flush 3 ML SYRINGE IVFLUSH (08:17)
--- NOTE | 2020-10-23 11:15 | MHC.CM.PN ---
nurse care support representative note electronic medical record reviewed along with case discussed with staff nursr, met with patient , she is aware that she will be discharged home today . discharge plan home no services transportation friend pcp dr laurence navarrete instructed to call for post hospitla discharge follow up all discharge paperwork complerted
--- NOTE | 2020-10-23 11:36 | PM.DS ---
DS: Providers Provider Date of Service: 10/23/20 Date of admission: 10/21/20 23:34 Primary care physician: Valentina Suazo MD DS: Diagnosis Discharge Diagnosis (1) Acute respiratory failure with hypoxia: Status: Acute (2) Alcohol abuse: Status: Acute (3) Hypomagnesemia: Status: Acute (4) Hypokalemia: Status: Acute (5) COPD (chronic obstructive pulmonary disease): Status: Acute (6) Weakness: Status: Acute (7) Hypothyroidism: Status: Acute (8) Essential hypertension: Status: Acute DS: Medications Discharge Medications Home Medications: Previous Rx's Medication Instructions Recorded levothyroxine 112 mcg tablet 112 mcg PO DAILY 90 Days #90 tab 04/15/20 amlodipine 5 mg tablet 5 mg PO DAILY 30 Days #30 tab 08/14/20 albuterol sulfate 2 puff INHALATION Q6H PRN #8.5 g 10/23/20 fluticasone furoate-vilanterol 1 inh INHALATION DAILY #60 ea 10/23/20 [Breo Ellipta] prednisone 20 mg PO DAILY #5 tab 10/23/20 DS: Summary Hospital Course Hospital Course: History of presenting illness Chief Complaint: Shortness of breath This 65-year-old female with past medical history of COPD, HTN, hypothyroidism, alcohol abuse who presents to the hospital with complaints of patient is also complaining of generalized weakness, as well as lower extremity edema around the feet and ankle that also started about 2 days ago. She denies orthopnea or PND. She reports that the cough is nonproductive. She has had chills with no fever, denies any chest pain, no headache or change in vision, no palpitations, no abdominal pain nausea or vomiting, no diarrhea constipation, no urinary symptoms. On arrival to the ED patient hemodynamically stable with vital significant for temp of 97.9?, heart rate of 111, respiratory rate of 24, blood pressure 135/79, satting 93% on room air. Apparently while in the ED patient's O2 did drop to 87% on room air and patient was placed on 2 L of oxygen for short period of time. Patient currently on room air. Diabetes C count of 6.1, hemoglobin of 14.3, potassium of 3.2, magnesium level of 1.5, AST of 49, ALT of 77, high sensitivity troponin of 46.9 that it decreased to 45, TSH of 8.68, free thyroxine of 0.63, COVID-19 negative Chest x-ray shows no acute intrathoracic disease 65-year-old female with past medical history of COPD presented to the hospital with complaints of cough, shortness of breath found to be hypoxic on room air in the ED, therefore patient admitted to hospital with a diagnosis of acute hypoxic respiratory failure likely secondary to COPD exacerbation, chest x-ray showed no acute abnormality no evidence of CHF with a normal BNP, patient treated with IV steroids, updraft treatment with good response, she has been strongly advised to abstain from smoking and is being discharged home on 4 more days of prednisone, albuterol and Breo she has been recommended to have close outpatient follow-up with primary care physician. Patient feels good this morning her weakness has significantly improved, her oxygenation is stable on room. Patient also noted to have hypokalemia and hypomagnesemia, likely due to poor by mouth intake with history of alcohol use and also due to hydrochlorothiazide, patient was aggressively treated with potassium and magnesium magnesium level improved, potassium remains low that has been repleted she has been recommended to have repeat labs next week and her hydrochlorothiazide has been discontinued since patient has been noted to have chronically low potassium level History of alcohol abuse patient did not have any withdrawal symptoms, has been strongly recommended to abstain from alcohol In regard to hypothyroidism patient noted to have elevated TSH level, patient has not been taking her meds for few weeks due to palpitations she has been recommended to continue Synthroid and repeat TSH in 6 weeks For hypertension blood pressure is stable on amlodipine, hydrochlorothiazide has been discontinued due to soft blood pressure and hypokalemia Time Spent with Patient Time attestation: Total time spent providing and/or coordinating discharge services: Discharge coordination time: Greater than 30 minutes Quality: Stroke Does the patient have a stroke diagnosis?: No Physical Exam Vital Signs: Vital Signs: Last Vital Signs Temp 97.3 F 10/23/20 07:37 Pulse 76 10/23/20 08:16 Resp 18 10/23/20 07:37 BP 121/70 10/23/20 08:16 Pulse Ox 91 L 10/23/20 07:37 Body Mass Index 17.4 General no acute distress. Neck is supple no JVD. CVS regular rate rhythm, Respiratory lungs diminished breath sounds, no respiratory distress, no wheeze, no rhonchi. Gastrointestinal abdomen soft, nontender, bowel sounds audible, no guarding , no rigidity. Extremities no edema. Neuro nonfocal ,speech clear. Skin no rash DS: Data Data Completed and Pending Labs on day of discharge: Laboratory Results - last 24 hr 10/23/20 05:32 Sodium 136 Potassium 3.2 L Chloride 99 Carbon Dioxide 27 Anion Gap 13 BUN 8 L Creatinine 0.64 Estim Creat Clear Calc 67.7 Estimated GFR > 60 Random Glucose 101 Calcium 9.1 Magnesium 1.8 Preliminary micro results at discharge 10/21/20 22:06 Blood Culture - Preliminary Blood - Venous No growth after 24 hours. 10/21/20 22:07 Blood Culture - Preliminary Blood - Venous No growth after 24 hours. Discharge Plan Discharge Patient Disposition: Home, Self-Care Discharge Diagnosis: Acute hypoxic respiratory failure Hypokalemia Hypo magnesemia Alcohol abuse Tobacco use disorder Hypothyroidrism Referrals: Valentina Graves MD [Primary Care Provider] - 1 Week Discharge Medications: New prednisone 20 mg Tablet 20 mg PO DAILY Qty: 5 RF: 0 albuterol sulfate 90 mcg/actuation HFA aerosol inhaler 2 puff inhalation Q6H PRN (Reason: shortness of breath or wheezing) Qty: 8.5 RF: 0 Breo Ellipta 100-25 mcg/dose blister with device 1 inh inhalation DAILY Qty: 60 RF: 0 Continued levothyroxine 112 mcg tablet 112 mcg PO DAILY 90 Days Qty: 90 RF: 1 amlodipine 5 mg tablet 5 mg PO DAILY 30 Days Qty: 30 RF: 3 Discontinued hydrochlorothiazide 25 mg tablet 25 mg PO DAILY 30 Days Qty: 30 RF: 6 Discharge Orders: Discharge Order (Routine); Ordered 10/23/20 Ordered By: Anjelica June Diet: advance to usual diet Activity on Discharge: As tolerated Stand Alone Forms: Patient Portal Discharge page Other Ambulatory Orders: Electrolytes (Routine) Timeframe: 20201027 Facility: [facility] - Location: Laboratory Ordered By: Anjelica June Care Plan Goals: Hypoxic respiratory failure, take prednisone, albuterol inhaler and Breo as directed, try to gradually quit smoking In regard to hypertension stop using hydrochlorothiazide, that is causing hypokalemia, your blood pressure is stable on amlodipine Follow-up with primary care physician in 1 week and have potassium checked next week Health Concerns: Gradually wean alcohol and smoking, eat healthy and follow with primary care physician closely Plan of Treatment: Follow up with PCP in 1 week. Assessment: As above
[2020-10-23 11:39] VITALS: BP 109/61; PULSE 77; RESP 18; TEMP 36.6; O2SAT 91
== END 2020-10-23 11:52 | disposition home or self-care (01) | DRG 192 ==
LOC: HO.ED 23:19 → HO.EDOVER 23:48 → HO.S3 10-22 06:00
PROVIDERS: Nurse Practitioner Family; Admitting Provider Internal Medicine; Emergency Provider Emergency Medicine; PCP Internal Medicine; Visit Provider Hospitalist
DX: J44.1 Chronic obstructive pulmonary disease with (acute) exacerbation (principal); E03.9 Hypothyroidism, unspecified; I10 Essential (primary) hypertension; E87.6 Hypokalemia; E83.42 Hypomagnesemia; F10.10 Alcohol abuse, uncomplicated; Z20.822 Contact with and (suspected) exposure to COVID-19; F17.210 Nicotine dependence, cigarettes, uncomplicated; Z71.6 Tobacco abuse counseling; Z79.51 Long term (current) use of inhaled steroids; Z79.52 Long term (current) use of systemic steroids; Z79.890 Hormone replacement therapy; Z79.899 Other long term (current) drug therapy
CPT/HCPCS: 36415; 71046; 80048; 80076; 82077; 82550; 83605; 83690; 83735; 83880; 84439; 84443; 84484; 85025; 87040; 87635; 93005; 94640; 99285; J1650; J1956; J2920; J2930; J3475

== ENCOUNTER 2021-01-15 17:41 | Emergency (ER) | payer MEDICARE, SELFPAY ==
[2021-01-15 17:49] VITALS: BP 112/74; PULSE 120; O2SAT 97
[2021-01-15 18:02] VITALS: BP 133/68; PULSE 121; RESP 18; TEMP 36.6; O2SAT 97; BMI 16.6
--- NOTE | 2021-01-15 18:13 | ED_ITS ---
HPI - General Adult General Chief complaint: Nausea/Vomiting/Diarrhea Stated complaint: DIARRHEA, WEAKNESS Time Seen by Provider: 01/15/21 18:01 Source: patient and old records reviewed Mode of arrival: ambulatory History of Present Illness HPI narrative: Patient states for the past 5 days she has had diarrhea. She states she has 2 or 3 episodes a day. She states it is very loose and sometimes watery. Dark but not black. No prior history of similar issues but thinks intermittently she has been having diarrhea secondary to her albuterol. She has a history of COPD as well as Noe's thyroiditis and hypertension. She has not had her thyroid level checked in 2 years. She denies any abdominal pain. She states she gets some cramps and then has diarrhea when it happens. Nothing right now. She states it happens every time she eats. No urinary symptoms Nausea but no vomiting Related Data Previous Rx's Medication Instructions Recorded levothyroxine 112 mcg tablet 112 mcg PO DAILY 90 Days #90 tab 04/15/20 budesonide-formoterol HFA 80 2 puff INHALATION BID 30 Days 11/06/20 mcg-4.5 mcg/actuation aerosol #10.2 g inhaler (Symbicort) hydrochlorothiazide 25 mg tablet 25 mg PO DAILY 30 Days #30 tab 11/06/20 amlodipine 5 mg tablet 5 mg PO DAILY 30 Days #30 tab 12/08/20 cilostazol 50 mg tablet 50 mg PO BID 90 Days #180 tab 12/08/20 Allergies Allergy/AdvReac Type Severity Reaction Status Date / Time No Known Allergies Allergy Verified 11/06/20 11:39 [No Known Allergies*] Review of Systems Constitutional: Constitutional: Reports fatigue and Denies fever(s) Cardiovascular: Cardiovascular: Denies chest pain and Denies syncope Respiratory: Comments: She states her COPD feels a little bit worse since the diarrhea has started. No increasing cough or sputum. Gastrointestinal: Gastrointestinal: Reports as per HPI Musculoskeletal: Musculoskeletal: Reports no additional musculoskeletal complaints Neurologic: Denies syncope Psychiatric: Psychiatric: Reports no additional psychiatric complaints Endocrine: Endocrine: Reports fatigue PMFSH Past Medical History Medical History (Updated 01/15/21 @ 21:44 by Donte Garcia MD) Alcohol abuse COPD (chronic obstructive pulmonary disease) COPD (chronic obstructive pulmonary disease) Essential hypertension Hypomagnesemia Hypothyroidism Surgical History No history of previous surgery Family History Family History Mother No problems noted. Father No problems noted. Social History Social History (Updated 11/10/20 @ 18:59 by Mejia Dinh PA-C) Household Members: None Housing: Apartment Do you presently have visiting nurse or other home services: No Alcohol intake: current Alcohol intake frequency: 3 or more drinks per day Alcohol type: wine Patient Tobacco Use Status: Current everyday Tobacco user Tobacco use type: Cigarette Cigarettes Per Day: 15 e-Cigarette/Vaping Use: Never Used Advance Directives: No Advance Directives Information Provided: No service: No Current occupational status: employed Physical Exam Vital Signs: Vital Signs: Last Vital Signs Temp 98.1 F 01/15/21 18:57 Pulse 112 H 01/15/21 18:57 Resp 17 01/15/21 18:57 BP 122/66 01/15/21 18:57 Pulse Ox 96 01/15/21 18:57 Body Mass Index 16.6 Const: General: cooperative, comfortable and no acute distress Orientation/consciousness: patient oriented x3 HENMT: Head: Yes normal to inspection Resp: Effort & Inspection: normal respiratory effort Cardio: Other: Regular rate and rhythm without murmurs rubs or gallops GI: Other: Soft nontender nondistended normoactive bowel sounds Skin: Other: Warm pink and dry Neuro: General: patient oriented x3 Course Course Course Narrative: Patient with diarrhea for over week. Bacterial enteritis is a possibility. Her abdomen is nontender so I do not think we need to image her. Treat with IV fluids and antiemetics. 9:42 p.m.. Potassium is 3.0. Treated with p.o. potassium. Patient states she is feeling much better and requests discharge home. Lab work is reassuring. TSH is very low but her T4 is normal level. Consistent with thyroid replacement therapy. Unlikely related to her current symptoms. She was unable to give a stool sample. Will have her follow-up with gastroenterology Medical Decision Making Lab Data Result diagrams: 01/15/21 19:07 01/15/21 19:07 Labs: Lab Results 01/15/21 01/15/21 01/15/21 Range/Units 19:07 19:07 19:55 WBC 6.5 (4.8-10.8) X10*3/uL RBC 4.05 L (4.20-5.50) X10*6/uL Hgb 14.6 (12.0-16.0) g/dl Hct 41.3 (37-47) % MCV 102.0 H (80-98) fL MCH 36.0 H (27.0-33.0) pg MCHC 35.4 H (31.0-35.0) g/dl RDW 13.4 (11.0-16.0) % Plt Count 259 (160-400) X10*3/uL MPV 8.7 L (9.4-12.3) fL Immature Gran % (Auto) 0.2 (0.0-0.4) % Neut % (Auto) 59.1 (45-73) % Lymph % (Auto) 30.8 (20-40) % [place] % (Auto) 6.5 (2-11) % Eos % (Auto) 2.9 (0-4) % Baso % (Auto) 0.5 (0-2) % Lymph # (Auto) 2.0 (1.2-4.9) X10*3/uL [place] # (Auto) 0.4 (0.1-1.2) X10*3/uL Eos # (Auto) 0.2 (0.0-0.4) X10*3/uL Baso # (Auto) 0.0 (0.0-0.2) X10*3/uL Abs Immat Gran (auto) 0.01 (0.00-0.03) X10*3/uL Absolute Neuts (auto) 3.8 (2.0-8.3) X10*3/uL Absolute Nucleated RBC 0.000 (0.0-0.012) X10*3/uL Nucleated RBC % (auto) 0.0 (0.0-0.2) /100WBC Sodium 137 (135-145) mmol/L Potassium 3.0 L (3.3-5.1) mmol/L Chloride 99 (96-108) mmol/L Carbon Dioxide 27 (22-29) mmol/L Anion Gap 14 (12-20) BUN 3 L D (9-16) mg/dL Creatinine 0.64 (0.5-1.4) mg/dL Estim Creat Clear Calc 62.7 Estimated GFR > 60 Random Glucose 89 (60-115) mg/dL Calcium 9.2 (8.4-10.2) mg/dL Total Bilirubin 0.5 (0.0-1.0) mg/dL Direct Bilirubin 0.2 (0.0-0.5) mg/dL AST 36 H (5-31) U/L ALT 38 H (0-31) U/L Alkaline Phosphatase 103 D (39-117) U/L Total Protein 5.4 L (6.5-8.0) g/dL Albumin 3.1 L (3.5-5.0) g/dL Lipase 14 (8-78) U/L TSH 0.01 L (0.32-4.0) uIU/mL Free T4 1.23 (0.71-1.85) ng/dL Urine Color YELLOW Urine Appearance CLEAR Urine pH 7.0 (5.0-8.0) Ur Specific [place] <= 1.005 (1.005-1.025) Urine Protein NEG (NEG-TRACE) MG/DL Urine Glucose (UA) NEG (NEG) MG/DL Urine Ketones NEG (NEG) MG/DL Urine Blood NEG (NEG) Urine Nitrite POS H (NEG) Ur Leukocyte Esterase 2+ H (NEG) Urine RBC 0-2 (0) /HPF Urine WBC 1-4 (0-4) /HPF Ur Squamous Epith Cells TRACE /LPF Urine Bacteria 3+ /LPF Discharge Plan Discharge Clinical Impression: Hypokalemia, Gastroenteritis, Dehydration Instructions: Acute Diarrhea (ED), Hypokalemia (ED) Additional Instructions: Return if worse. Follow-up with Gastroenterology. Drink plenty of liquids. Be sure to eat bananas and other foods high in potassium. [id number] Imodium if needed for diarrhea Prescriptions: No Action levothyroxine 112 mcg tablet 112 mcg PO DAILY 90 Days Qty: 90 RF: 1 amlodipine 5 mg tablet 5 mg PO DAILY 30 Days Qty: 30 RF: 3 cilostazol 50 mg tablet 50 mg PO BID 90 Days Qty: 180 RF: 2 hydrochlorothiazide 25 mg tablet 25 mg PO DAILY 30 Days Qty: 30 RF: 3 budesonide-formoterol [Symbicort] 80-4.5 mcg/actuation HFA aerosol inhaler 2 puff inhalation BID 30 Days Qty: 10.2 RF: 0 Referrals: Benji Kohler [Physician] - 2 days
[2021-01-15 18:57] VITALS: BP 122/66; PULSE 112; RESP 17; TEMP 36.7; O2SAT 96
[2021-01-15 19:12] LABS: MANUAL DIFF FLAG NO
[2021-01-15 19:14] LABS: Basophils Percent Auto 0.5 % (0-2); Eosinophils Absolute Auto 0.2 X10*3/uL (0.0-0.4); Eosinophils Percent Auto 2.9 % (0-4); Hematocrit 41.3 % (37-47); Hemoglobin 14.6 g/dl (12.0-16.0); Imm Gran Abs Auto 0.01 X10*3/uL (0.00-0.03); Imm Gran Pct Auto 0.2 % (0.0-0.4); Lymphocytes Percent Auto 30.8 % (20-40); Mean Corpuscular HGB Conc 35.4 g/dl (31.0-35.0); Mean Platelet Volume 8.7 fL (9.4-12.3); Monocytes Absolute Auto 0.4 X10*3/uL (0.1-1.2); Monocytes Percent Auto 6.5 % (2-11); Neutrophils Absolute Auto 3.8 X10*3/uL (2.0-8.3); Neutrophils Percent Auto 59.1 % (45-73); Platelet Count 259 X10*3/uL (160-400); Red Blood Count 4.05 X10*6/uL (4.20-5.50); Red Cell Distribution Width 13.4 % (11.0-16.0); White Blood Count 6.5 X10*3/uL (4.8-10.8)
[2021-01-15 19:33] LABS: Alanine Aminotransferase 38 U/L (0-31); Albumin Level 3.1 g/dL (3.5-5.0); Alkaline Phosphatase 103 U/L (39-117); Anion Gap 14 (12-20); Aspartate Amino Transferase 36 U/L (5-31); Bilirubin Direct 0.2 mg/dL (0.0-0.5); Bilirubin Total 0.5 mg/dL (0.0-1.0); Blood Urea Nitrogen 3 mg/dL (9-16); Calcium 9.2 mg/dL (8.4-10.2); Carbon Dioxide 27 mmol/L (22-29); Chloride 99 mmol/L (96-108); Creatinine Clr Calc Pharmacy 62.7; Estimated Glomerular Filt Rate > 60; Glucose Random 89 mg/dL (60-115); Lipase 14 U/L (8-78); Sodium 137 mmol/L (135-145); Total Protein 5.4 g/dL (6.5-8.0)
[2021-01-15 19:53] LABS: TSH reflex Free T4 0.01 uIU/mL (0.32-4.0)
[2021-01-15] MEDS: 0.9 % Sodium Chloride 1,000 ML 999 ML IV ×2 (20:00→21:17)
[2021-01-15 20:02] LABS: Appearance Urine CLEAR; Color Urine YELLOW; Glucose Urine UA NEG (NEG); Leukocyte Esterase Urine 2+ (NEG); Nitrite Urine POS (NEG); Specific Gravity - Urine <= 1.005 (1.005-1.025); UACC Culture Trigger YES; Urine Blood NEG (NEG); Urine Ketones NEG (NEG); Urine Protein NEG (NEG-TRACE)
[2021-01-15 20:14] LABS: Bacteria Urine 3+ /LPF; RBC Urine 0-2 /HPF (0); Squamous Epithelial Cell Urine TRACE /LPF
[2021-01-15 20:33] LABS: Free T4 (Free Thyroxine) 1.23 ng/dL (0.71-1.85)
[2021-01-15] MEDS: ondansetron HCL 4 MG/2 ML VIAL IVPUSH (21:16)
[2021-01-15] MEDS: Potassium Chloride ER 20 MEQ TAB.ER.PRT PO (21:17)
== END 2021-01-15 23:17 | disposition home or self-care (01) ==
PROVIDERS: Emergency Provider Emergency Medicine; PCP Internal Medicine
DX: N39.0 Urinary tract infection, site not specified (principal); K52.9 Noninfective gastroenteritis and colitis, unspecified; E87.6 Hypokalemia; E86.0 Dehydration; I10 Essential (primary) hypertension; F10.10 Alcohol abuse, uncomplicated; F17.210 Nicotine dependence, cigarettes, uncomplicated
CPT/HCPCS: 36415; 80048; 80076; 81001; 81003; 83690; 84439; 84443; 85025; 87086; 87088; 87186; 96361; 96374; 99284; J2405

== ENCOUNTER 2021-01-26 16:34 | Emergency (ER) | payer MEDICARE, SELFPAY ==
--- NOTE | ~2021-01-26 | US_ITS ---
EXAMINATION: NONINVASIVE ASSESSMENT OF THE ARTERIES OF THE RIGHT UPPER EXTREMITY Martin Phillips MD CLINICAL INFORMATION: Cold right upper extremity TECHNIQUE: Duplex Doppler techniques were used to evaluate the vessels of the right upper extremity.. Velocity measurements and color flow Doppler imaging were performed in the subclavian arteries, axillary arteries, brachial arteries and radial and ulnar arteries. COMPARISON: None FINDINGS: Multiphasic flow is noted throughout the right upper extremity and no significant plaque or areas of velocity acceleration are present. Below are velocities in cm per second: Proximal subclavian artery: 102 Mid subclavian artery: 79 Distal subclavian artery 80 Axillary artery: 68 Proximal brachial artery: 99 Mid brachial artery: 92 Distal brachial artery: 87 Radial artery: 78 Ulnar artery: 57 US/US arterial duplex UE RT IMPRESSION: There is no evidence of any hemodynamically significant right upper extremity arterial disease by duplex Doppler criteria at rest.
--- NOTE | ~2021-01-26 | CT_ITS ---
EXAMINATION: CTA CHEST, ABDOMEN AND PELVIS WITH CONTRAST CLINICAL INFORMATION: Reason for Exam abdominal pain, tingling, numbness to both hands, discolorat COMPARISON: CTA chest for pulmonary emboli 01/18/2019. TECHNIQUE: Multidetector volumetric imaging was performed from the thoracic inlet through the pubic symphysis following administration of 70 mL of Omnipaque 350. Sagittal and coronal reformatted images were obtained on the technologist's workstation. Additional 2-D coronal and sagittal reformatted images and axial 3-D maximum intensity projection MIP images are generated on the CT workstation. This CT examination was performed using dose optimization techniques as appropriate, variously including the following: *Automated exposure control *Adjustment of mA and/or kV according to patient size (this includes techniques or standardized protocols for targeted exams where dose is matched to indication/reason for exam; i.e. extremities or head) *Use of iterative reconstruction technique DLP: 313 mGy-cm FINDINGS: CHEST: Lung: Some tiny pulmonary nodules are seen, none larger than 2 to 3 mm, unchanged. A small 4 mm groundglass nodule in the left upper lobe previously appears smaller. The lungs are otherwise clear without focal opacity or worrisome nodule. Mediastinum: The mediastinum is normal. Coronary calcium not adequately assessed because of marked motion artifact. No hilar or mediastinal lymphadenopathy. Pericardium/Pleura: No significant effusion. No pleural mass or thickening. Chest Wall/Axilla: Unremarkable ABDOMEN/PELVIS: Peritoneal Space: No significant free air or free fluid identified. Liver, Gallbladder, Biliary Tree: The liver is normal in size, shape, and attenuation. No focal hepatic lesion or biliary ductal dilatation is present. The gallbladder is unremarkable with no evidence of radiopaque gallstones, gallbladder wall thickening, or obvious pericholecystic inflammatory changes. Pancreas: Unremarkable Spleen: Unremarkable Adrenal Glands: Both adrenal glands appear mildly thickened without discrete mass. Kidneys and Ureters: The kidneys are normal in size, shape, and attenuation. No hydronephrosis, hydroureter, or calculi seen. No perinephric stranding. Bladder: Unremarkable Gastrointestinal Tract: The small and large bowel are unremarkable aside from a few scattered colonic diverticula. The appendix is unremarkable. Abdominal Wall: No significant hernia is appreciated. Lymph Nodes: No retroperitoneal lymphadenopathy. Vascular: The thoracic aorta appears normal without evidence of aneurysm or dissection. Three-vessel branching pattern of the aortic arch is seen with widely patent great vessels. The abdominal aorta demonstrates. Calcific and noncalcific atherosclerotic changes. There is infrarenal dilatation of the abdominal aorta with a maximum dimension of 2.6 cm. Aortic bifurcation is patent. Calcific atherosclerotic change present in the common iliac arteries without stenosis. Iliac bifurcations are patent. Iliac arteries are diseased. The external iliac arteries are free of significant disease. Common femoral arteries demonstrate posterior calcified plaque without stenosis. Femoral bifurcations are patent as are the proximal profunda femoris arteries and superficial femoral arteries. The celiac and SMA are patent both with ostial disease with about a 50% narrowing of the SMA lumen. The DAYLIN is patent. There are single renal arteries present bilaterally which are patent. Although not carried out for evaluation of the pulmonary arteries there are seen 2 excellent advantage and there is no evidence of pulmonary emboli. The pulmonary veins appear unremarkable. PELVIC VISCERA: An anteverted retroflexed uterus is present with a focal calcification centrally which could be related to a fibroid. Pelvic ultrasound is recommended for further evaluation. OSSEUS STRUCTURES: Mild degenerative changes are noted in the spine. No bony destructive lesions are seen. CT/CT angio abdomen pelvis IMPRESSION: 1. No evidence of aortic dissection. 2. Infrarenal abdominal aortic aneurysmal dilatation with calcific and noncalcific plaque/thrombus. 3. Pulmonary arteries well seen and is no evidence of pulmonary emboli 4. Mild SMA stenosis. 5. Calcification in the uterus best assessed with endovaginal and transabdominal ultrasound.
[2021-01-26 16:46] VITALS: BP 130/75; PULSE 112; RESP 18; TEMP 36.9; O2SAT 96; BMI 16.6
--- NOTE | 2021-01-26 16:46 | ECG_ITS ---
Test Reason : MEDICAL Blood Pressure : / mmHG Vent. Rate : 107 BPM Atrial Rate : 107 BPM P-R Int : 158 ms QRS Dur : 074 ms QT Int : 338 ms P-R-T Axes : 076 083 083 degrees QTc Int : 451 ms Sinus tachycardia Otherwise normal ECG When compared with ECG of 21-OCT-2020 20:32, No significant change was found Referred By: Fany Kay Electronically Signed By:STACEY HALL
--- NOTE | 2021-01-26 16:48 | ED.GENADULT ---
HPI - General Adult General Chief complaint: Weakness Stated complaint: abd pain Time Seen by Provider: 01/26/21 16:44 Source: patient, EMS and old records reviewed Mode of arrival: EMS Limitations: no limitations History of Present Illness MD complaint: tingling and discoloration to both hands, stomach cramps Onset (ago): hour(s) (started this AM but noted the tingling in the last couple of hours) Location: abdomen, left, right and upper extremity Radiation: non-radiation Severity: moderate Quality: other (tingling in extremities, noted they were white and purple, stomach cramps) Pain Consistency: constant Relieving factors: none Exacerbating factors: none Associated symptoms: other (abdominal pain, just seen on 01/15 for diarrhea) Treatments prior to arrival: other (was started on macrobid 01/16 for Raoultella Planticola ) Related Data Previous Rx's Medication Instructions Recorded levothyroxine 112 mcg tablet 112 mcg PO DAILY 90 Days #90 tab 04/15/20 hydrochlorothiazide 25 mg tablet 25 mg PO DAILY 30 Days #30 tab 11/06/20 amlodipine 5 mg tablet 5 mg PO DAILY 30 Days #30 tab 12/08/20 cilostazol 50 mg tablet 50 mg PO BID 90 Days #180 tab 12/08/20 nitrofurantoin 100 mg PO BID 7 Days #14 cap 01/20/21 monohydrate/macrocrystals 100 mg capsule (Macrobid) Allergies Allergy/AdvReac Type Severity Reaction Status Date / Time No Known Allergies Allergy Verified 11/06/20 11:39 [No Known Allergies*] Review of Systems Review of Systems: Constitutional : No Weight loss, No Fever, pos Chills, pos Fatigue, No Malaise ENT/Mouth : No sore throat, No Rhinorrhea Eyes: No Eye Pain, No Swelling, No Redness Cardiovascular : No Chest Pain, No SOB, No Dyspnea on Exertion, No Orthopnea, No Edema, No Palpitations Respiratory : No Cough, No Sputum, No Wheezing Gastrointestinal : pos Nausea, No Vomiting, No Diarrhea, No Constipation, pos abdominal Pain, No Hematochezia, No Melena Genitourinary : No Dysuria, No Urinary Frequency, No Hematuria, Musculoskeletal : No joint pain, No Myalgias, No Joint Swelling Skin : pos Skin Lesions, No rash Neuro : No Weakness, No Numbness, No Dizziness, No Headache, pos tingling Psych : No Anxiety/Panic, No Depression Heme/Lymph: No Bruising, No Bleeding,No Lymphadenopathy Endocrine : No Polyuria, No Polydipsia All other systems reviewed and are negative [facility] Past Medical History Attestation statement: The following information was validated with the patient. Medical History Alcohol abuse COPD (chronic obstructive pulmonary disease) COPD (chronic obstructive pulmonary disease) Essential hypertension Hypomagnesemia Hypothyroidism Surgical History No history of previous surgery Family History Family History Mother No problems noted. Father No problems noted. Social History Social History Household Members: None Housing: Apartment Do you presently have visiting nurse or other home services: No Alcohol intake: current Alcohol intake frequency: 3 or more drinks per day Alcohol type: wine Patient Tobacco Use Status: Current everyday Tobacco user Tobacco use type: Cigarette Cigarettes Per Day: 15 e-Cigarette/Vaping Use: Never Used Advance Directives: No Advance Directives Information Provided: No service: No Current occupational status: employed Physical Exam Vital Signs: Vital Signs: Last Vital Signs Temp 98.7 F 01/26/21 21:26 Pulse 98 01/26/21 22:37 Resp 20 01/26/21 22:37 BP 141/80 H 01/26/21 22:37 Pulse Ox 95 01/26/21 21:26 Body Mass Index 16.6 Appearance: Alert. Oriented X3. No acute distress. Eyes: Pupils equal, round and reactive to light. ENT: Pharynx normal. Neck: Normal inspection. Neck supple. CVS: Normal heart rate and rhythm. Pulses normal. Respiratory: No respiratory distress. Breath sounds normal. Abdomen: Soft and mild ttp in periumbilical area no rebound or guarding Skin: Skin warm and dry. pale skin color. R hand stained nails yellow - fingers are cool to the touch, delayed BCR, fingerbeds are purple, R 4th finger appears more purple in nature reports decreased sensation throughout. L hand fingers cooler to the touch, both hands bounding radial 2+ pulses Extremities: No lower extremity edema. No calf ttp Neuro: Oriented X 3. No motor deficit. No sensory deficit. Course Course Course Narrative: repleting K at this time. will need admission pending CT scan CTA negative at this time K low, tachycardic lactic acid up. unusual UTI pathogen - covered with rocephin, discussed admission with hospitalist for abnormal labs, concern of RUE findings ?emboli vs vasculitis - doppler and CRP requested at this time unsure if admission needed after discussion with admitted team patient now notes that for the past few days her hands have looked like this - ?buerger's disease Patient placed in physician observation at 1058pm . The indication for observation is that the patient needs more time to see if their condition improves or they ojlly need STR. At this time the patient is well developed well nourished, lungs clear, CV RRR, abd nontender, neuro is intact. Fingers improving more red and warm to touch signed out pending PT/CM Medical Decision Making MDM Narrative Medical decision making narrative: 65 yo female with hx of COPD persistent smoking, HTN just seen on 01/15 for dehydration and diarrhea - dx with UTI on 01/16 placed on macrobid for Raoultella Pl[place]ola - at this time she c/o abdominal cramps, bilateral upper hands discoloration but normal pulses she states this is new ?microvascular disease she reports this is new today and not old - she has never had disease in her hands related to smoking. At this time will obtain labs, cultures, CT scan for chest/abdomen to look at her aorta - possibly ?microvascular disease vs bacteremia with small clots being sent out peripherally - empiric Rocephin ordered. Likely admit at this time. No signs of acute limb ischemia Lab Data Result diagrams: 01/26/21 18:00 01/26/21 18:11 Labs: Lab Results 01/26/21 01/26/21 01/26/21 Range/Units 18:00 18:00 18:00 WBC 7.1 (4.8-10.8) X10*3/uL RBC 4.14 L (4.20-5.50) X10*6/uL Hgb 14.8 (12.0-16.0) g/dl Hct 40.9 (37-47) % MCV 98.8 H (80-98) fL MCH 35.7 H (27.0-33.0) pg MCHC 36.2 H (31.0-35.0) g/dl RDW 12.5 (11.0-16.0) % Plt Count 259 (160-400) X10*3/uL MPV 9.6 (9.4-12.3) fL Immature Gran % (Auto) 0.4 (0.0-0.4) % Neut % (Auto) 62.5 (45-73) % Lymph % (Auto) 26.7 (20-40) % [place] % (Auto) 8.8 (2-11) % Eos % (Auto) 1.0 (0-4) % Baso % (Auto) 0.6 (0-2) % Lymph # (Auto) 1.9 (1.2-4.9) X10*3/uL [place] # (Auto) 0.6 (0.1-1.2) X10*3/uL Eos # (Auto) 0.1 (0.0-0.4) X10*3/uL Baso # (Auto) 0.0 (0.0-0.2) X10*3/uL Abs Immat Gran (auto) 0.03 (0.00-0.03) X10*3/uL Absolute Neuts (auto) 4.4 (2.0-8.3) X10*3/uL Absolute Nucleated RBC 0.000 (0.0-0.012) X10*3/uL Nucleated RBC % (auto) 0.0 (0.0-0.2) /100WBC ESR 5 (0-20) MM/HR PT (9.9-13.0) SEC INR (0.9-1.1) APTT (24.1-38.0) SEC Sodium (135-145) mmol/L Potassium (3.3-5.1) mmol/L Chloride (96-108) mmol/L Carbon Dioxide (22-29) mmol/L Anion Gap (12-20) BUN (9-16) mg/dL Creatinine (0.5-1.4) mg/dL Estim Creat Clear Calc Estimated GFR Random Glucose (60-115) mg/dL Lactic Acid 2.6 H* (0.5-2.0) mmol/L Lactic Acid Fup @ 2Hr (0.5-2.0) mmol/L Calcium (8.4-10.2) mg/dL Magnesium (1.6-2.6) mg/dL Total Bilirubin (0.0-1.0) mg/dL Direct Bilirubin (0.0-0.5) mg/dL AST (5-31) U/L ALT (0-31) U/L Alkaline Phosphatase (39-117) U/L Lactate Dehydrogenase (122-220) U/L Troponin I High Sens (<3.5-17.0) ng/L C-Reactive Protein (< or = 0.50) mg/dL Total Protein (6.5-8.0) g/dL Albumin (3.5-5.0) g/dL Lipase (8-78) U/L Urine Color Urine Appearance Urine pH (5.0-8.0) Ur Specific [place] (1.005-1.025) Urine Protein (NEG-TRACE) MG/DL Urine Glucose (UA) (NEG) MG/DL Urine Ketones (NEG) MG/DL Urine Blood (NEG) Urine Nitrite (NEG) Ur Leukocyte Esterase (NEG) Urine RBC (0) /HPF Urine WBC (0-4) /HPF Ur Squamous Epith Cells /LPF Urine Bacteria /LPF COVID-19 (MEGGAN) (Negative) COVID-19 Clin Com 01/26/21 01/26/21 01/26/21 Range/Units 18:00 18:00 18:00 WBC (4.8-10.8) X10*3/uL RBC (4.20-5.50) X10*6/uL Hgb (12.0-16.0) g/dl Hct (37-47) % MCV (80-98) fL MCH (27.0-33.0) pg MCHC (31.0-35.0) g/dl RDW (11.0-16.0) % Plt Count (160-400) X10*3/uL MPV (9.4-12.3) fL Immature Gran % (Auto) (0.0-0.4) % Neut % (Auto) (45-73) % Lymph % (Auto) (20-40) % [place] % (Auto) (2-11) % Eos % (Auto) (0-4) % Baso % (Auto) (0-2) % Lymph # (Auto) (1.2-4.9) X10*3/uL [place] # (Auto) (0.1-1.2) X10*3/uL Eos # (Auto) (0.0-0.4) X10*3/uL Baso # (Auto) (0.0-0.2) X10*3/uL Abs Immat Gran (auto) (0.00-0.03) X10*3/uL Absolute Neuts (auto) (2.0-8.3) X10*3/uL Absolute Nucleated RBC (0.0-0.012) X10*3/uL Nucleated RBC % (auto) (0.0-0.2) /100WBC ESR (0-20) MM/HR PT 9.3 L (9.9-13.0) SEC INR 0.8 L (0.9-1.1) APTT 33.3 (24.1-38.0) SEC Sodium (135-145) mmol/L Potassium (3.3-5.1) mmol/L Chloride (96-108) mmol/L Carbon Dioxide (22-29) mmol/L Anion Gap (12-20) BUN (9-16) mg/dL Creatinine (0.5-1.4) mg/dL Estim Creat Clear Calc Estimated GFR Random Glucose (60-115) mg/dL Lactic Acid (0.5-2.0) mmol/L Lactic Acid Fup @ 2Hr (0.5-2.0) mmol/L Calcium (8.4-10.2) mg/dL Magnesium (1.6-2.6) mg/dL Total Bilirubin (0.0-1.0) mg/dL Direct Bilirubin (0.0-0.5) mg/dL AST (5-31) U/L ALT (0-31) U/L Alkaline Phosphatase (39-117) U/L Lactate Dehydrogenase (122-220) U/L Troponin I High Sens 20.2 H* D (<3.5-17.0) ng/L C-Reactive Protein (< or = 0.50) mg/dL Total Protein (6.5-8.0) g/dL Albumin (3.5-5.0) g/dL Lipase (8-78) U/L Urine Color Urine Appearance Urine pH (5.0-8.0) Ur Specific [place] (1.005-1.025) Urine Protein (NEG-TRACE) MG/DL Urine Glucose (UA) (NEG) MG/DL Urine Ketones (NEG) MG/DL Urine Blood (NEG) Urine Nitrite (NEG) Ur Leukocyte Esterase (NEG) Urine RBC (0) /HPF Urine WBC (0-4) /HPF Ur Squamous Epith Cells /LPF Urine Bacteria /LPF COVID-19 (MEGGAN) Negative (Negative) COVID-19 Clin Com See Note 01/26/21 01/26/21 01/26/21 Range/Units 18:00 18:11 21:33 WBC (4.8-10.8) X10*3/uL RBC (4.20-5.50) X10*6/uL Hgb (12.0-16.0) g/dl Hct (37-47) % MCV (80-98) fL MCH (27.0-33.0) pg MCHC (31.0-35.0) g/dl RDW (11.0-16.0) % Plt Count (160-400) X10*3/uL MPV (9.4-12.3) fL Immature Gran % (Auto) (0.0-0.4) % Neut % (Auto) (45-73) % Lymph % (Auto) (20-40) % [place] % (Auto) (2-11) % Eos % (Auto) (0-4) % Baso % (Auto) (0-2) % Lymph # (Auto) (1.2-4.9) X10*3/uL [place] # (Auto) (0.1-1.2) X10*3/uL Eos # (Auto) (0.0-0.4) X10*3/uL Baso # (Auto) (0.0-0.2) X10*3/uL Abs Immat Gran (auto) (0.00-0.03) X10*3/uL Absolute Neuts (auto) (2.0-8.3) X10*3/uL Absolute Nucleated RBC (0.0-0.012) X10*3/uL Nucleated RBC % (auto) (0.0-0.2) /100WBC ESR (0-20) MM/HR PT (9.9-13.0) SEC INR (0.9-1.1) APTT (24.1-38.0) SEC Sodium 135 (135-145) mmol/L Potassium 2.5 L* (3.3-5.1) mmol/L Chloride 97 (96-108) mmol/L Carbon Dioxide 26 (22-29) mmol/L Anion Gap 15 (12-20) BUN 5 L D (9-16) mg/dL Creatinine 0.63 (0.5-1.4) mg/dL Estim Creat Clear Calc 65.6 Estimated GFR > 60 Random Glucose 103 (60-115) mg/dL Lactic Acid (0.5-2.0) mmol/L Lactic Acid Fup @ 2Hr 1.9 (0.5-2.0) mmol/L Calcium 9.2 (8.4-10.2) mg/dL Magnesium 1.9 (1.6-2.6) mg/dL Total Bilirubin 1.0 (0.0-1.0) mg/dL Direct Bilirubin 0.4 (0.0-0.5) mg/dL AST 23 (5-31) U/L ALT 31 (0-31) U/L Alkaline Phosphatase 98 (39-117) U/L Lactate Dehydrogenase 175 (122-220) U/L Troponin I High Sens (<3.5-17.0) ng/L C-Reactive Protein 0.21 (< or = 0.50) mg/dL Total Protein 5.7 L (6.5-8.0) g/dL Albumin 3.2 L (3.5-5.0) g/dL Lipase 11 (8-78) U/L Urine Color YELLOW Urine Appearance HAZY Urine pH 6.0 (5.0-8.0) Ur Specific [place] 1.020 (1.005-1.025) Urine Protein TRACE (NEG-TRACE) MG/DL Urine Glucose (UA) NEG (NEG) MG/DL Urine Ketones 15 (NEG) MG/DL Urine Blood NEG (NEG) Urine Nitrite NEG (NEG) Ur Leukocyte Esterase TRACE H (NEG) Urine RBC 0 (0) /HPF Urine WBC 0-2 (0-4) /HPF Ur Squamous Epith Cells 1+ /LPF Urine Bacteria 1+ /LPF COVID-19 (MEGGAN) (Negative) COVID-19 Clin Com ECG Data Attestation: I personally reviewed and interpreted this ECG as follows: Interpretation: Rate: 107 Rhythm: sinus tachycardia [place]: normal Normal P waves. Normal ADALID. incomplete RBBB ST T wave : normal no DONNA qTC: normal prior studies: no acute ischemia The study has been interpreted contemporaneously by me. . Critical Care Time Critical Care Time Critical Care Time: Yes Total Critical Care Time: 45 Attestation: review of records, prolonged repletion of K, CT scans, referral to PT/CM I attest to this time spent taking care of the patient Discharge Plan Discharge Clinical Impression: Hypokalemia, Acidosis, lactic, Buerger disease Prescriptions: No Action levothyroxine 112 mcg tablet 112 mcg PO DAILY 90 Days Qty: 90 RF: 1 amlodipine 5 mg tablet 5 mg PO DAILY 30 Days Qty: 30 RF: 3 cilostazol 50 mg tablet 50 mg PO BID 90 Days Qty: 180 RF: 2 nitrofurantoin monohyd/m-cryst [Macrobid] 100 mg capsule 100 mg PO BID 7 Days Qty: 14 RF: 0 hydrochlorothiazide 25 mg tablet 25 mg PO DAILY 30 Days Qty: 30 RF: 3
[2021-01-26 17:32] VITALS: BP 134/84; PULSE 106; RESP 16; TEMP 36.6; O2SAT 99
--- NOTE | 2021-01-26 17:34 | PC.NURSE ---
PATIENT WAS HOOKED UP TO INSULATION BLOWER BY THIS PCT .
--- NOTE | 2021-01-26 18:00 | PHA.MEDREC ---
Pharmacy Consult ? Medication Reconciliation Pharmacy has completed the medication reconciliation.
[2021-01-26 18:09] LABS: MANUAL DIFF FLAG NO
[2021-01-26 18:11] LABS: Basophils Percent Auto 0.6 % (0-2); Eosinophils Absolute Auto 0.1 X10*3/uL (0.0-0.4); Hematocrit 40.9 % (37-47); Hemoglobin 14.8 g/dl (12.0-16.0); Imm Gran Abs Auto 0.03 X10*3/uL (0.00-0.03); Imm Gran Pct Auto 0.4 % (0.0-0.4); Lymphocytes Absolute Auto 1.9 X10*3/uL (1.2-4.9); Lymphocytes Percent Auto 26.7 % (20-40); Mean Corpuscular HGB Conc 36.2 g/dl (31.0-35.0); Mean Corpuscular Hemoglobin 35.7 pg (27.0-33.0); Mean Corpuscular Volume 98.8 fL (80-98); Mean Platelet Volume 9.6 fL (9.4-12.3); Monocytes Absolute Auto 0.6 X10*3/uL (0.1-1.2); Monocytes Percent Auto 8.8 % (2-11); Neutrophils Absolute Auto 4.4 X10*3/uL (2.0-8.3); Neutrophils Percent Auto 62.5 % (45-73); Platelet Count 259 X10*3/uL (160-400); Red Blood Count 4.14 X10*6/uL (4.20-5.50); Red Cell Distribution Width 12.5 % (11.0-16.0); White Blood Count 7.1 X10*3/uL (4.8-10.8)
[2021-01-26] MEDS: cefTRIAXone sodium 2 GM in 0.9 % Sodium Chloride 50 ML IV (18:14)
[2021-01-26] MEDS: 0.9 % Sodium Chloride 1,000 ML 999 ML IVCONT (18:15)
[2021-01-26 18:19] LABS: Appearance Urine HAZY; Color Urine YELLOW; Glucose Urine UA NEG (NEG); Leukocyte Esterase Urine TRACE (NEG); Nitrite Urine NEG (NEG); UACC Culture Trigger YES; Urine Blood NEG (NEG); Urine Ketones 15 MG/DL (NEG); Urine Protein TRACE MG/DL (NEG-TRACE)
[2021-01-26 18:27] LABS: COVID-19 Test Negative (Negative)
[2021-01-26 18:30] LABS: Bacteria Urine 1+ /LPF; RBC Urine 0 /HPF (0); Squamous Epithelial Cell Urine 1+ /LPF; WBC Urine 0-2 /HPF (0-4)
[2021-01-26 18:32] LABS: Lactic Acid 2.6 mmol/L (0.5-2.0)
[2021-01-26 18:35] LABS: Troponin-I High Sensitivity 20.2 ng/L (<3.5-17.0)
[2021-01-26 18:40] LABS: Partial Thromboplastin Time 33.3 SEC (24.1-38.0)
[2021-01-26 18:47] LABS: Alanine Aminotransferase 31 U/L (0-31); Albumin Level 3.2 g/dL (3.5-5.0); Alkaline Phosphatase 98 U/L (39-117); Anion Gap 15 (12-20); Aspartate Amino Transferase 23 U/L (5-31); Bilirubin Direct 0.4 mg/dL (0.0-0.5); Blood Urea Nitrogen 5 mg/dL (9-16); Calcium 9.2 mg/dL (8.4-10.2); Carbon Dioxide 26 mmol/L (22-29); Chloride 97 mmol/L (96-108); Creatinine Clr Calc Pharmacy 65.6; Estimated Glomerular Filt Rate > 60; Glucose Random 103 mg/dL (60-115); Lactate Dehydrogenase 175 U/L (122-220); Lipase 11 U/L (8-78); Magnesium 1.9 mg/dL (1.6-2.6); Potassium 2.5 mmol/L (3.3-5.1); Sodium 135 mmol/L (135-145); Total Protein 5.7 g/dL (6.5-8.0)
[2021-01-26 18:53] LABS: INTERNATIONAL NORM RATIO 0.8 (0.9-1.1); Prothrombin Time 9.3 SEC (9.9-13.0)
[2021-01-26 19:02] LABS: Erythrocyte Sedimentation Rate 5 MM/HR (0-20)
[2021-01-26] MEDS: iohexoL 350 MG/ML 100 ML INFUS..BTL IV (19:19)
[2021-01-26] MEDS: Potassium Chloride ER 20 MEQ TAB.ER.PRT 40 MEQ PO (19:42)
[2021-01-26] MEDS: Potassium Chloride/H20 10 MEQ/100 ML PIGGYBACK 100 MEQ IV ×3 (19:43→22:36)
[2021-01-26] MEDS: 0.9 % Sodium Chloride 1,000 ML 999 ML IV (20:00)
--- NOTE | 2021-01-26 20:03 | PC.NURSE ---
pt medicated with 1st bag of K+. pt tolerated po K+. Pt was c/o K+ burning, MD aware and NS up and running with K+. will continue to monitor pt.
[2021-01-26 20:05] LABS: Reflex Lactate? Lactic Acid Added
[2021-01-26 20:53] LABS: C Reactive Protein 0.21 mg/dL (< or = 0.50)
[2021-01-26 21:26] VITALS: BP 145/80; PULSE 99; RESP 20; TEMP 37.1; O2SAT 95
--- NOTE | 2021-01-26 21:26 | PC.NURSE ---
pt being redrawn for lactic acid. pt up to restroom. pt returns to room and connected to monitor. pt denies any complaints. will continue to monitor pt.
--- NOTE | 2021-01-26 21:38 | PC.NURSE ---
PATIENT HAD A CH[employer]EN [employer] SANDWICH AND GINGERALE
[2021-01-26 21:49] LABS: ~Lactic Acid-LAB USE ONLY 1.9 mmol/L (0.5-2.0)
[2021-01-26 22:37] VITALS: BP 141/80; PULSE 98; RESP 20
--- NOTE | 2021-01-26 23:07 | PC.NURSE ---
CASE MGT IN ROOM FOR EVAL. PT WILL BE STAYING FOR EVAL FOR PT AND SHORT TERM REHAB. PT AGREES. PT IS UNABLE TO CLIMB STARS AT HOME.
--- NOTE | 2021-01-26 23:23 | MHC.CM.ED ---
CM met with pt. A&Ox3. Pt very willing for PT evaluation and possible STR. States she has been in weakened condition for 5 months. Lives alone. Uses a rollator walker. No services. No HCP. HCP reviewed, completed and signed. Copies given. Uploaded into [email or web address] and [facility]. HCP/son Dung Calvert ([phone]). Pt is a smoker and admits to 3 drinks/day. [facility] given for local facilities with referrals placed to [place] facilities as requested. Pt aware that placement depends on bed availablitiy. CM will follow for d/c needs.
[2021-01-27] MEDS: Potassium Chloride/H20 10 MEQ/100 ML PIGGYBACK 100 MEQ IV (00:03)
--- NOTE | 2021-01-27 03:30 | PC.NURSE ---
PT SLEEPING, WAKES TO VOICE, RESPIRATIONS EASY, N/L. SKIN W/D. PT AWAITING FOR ROOM ASSIGNMENT.
--- NOTE | 2021-01-27 06:31 | PC.NURSE ---
PT REQUESTING RECLINING CHAIR BUT PT REFUSED CHAIR B/O UNABLE TO RECLINE CHAIR BACK. PT ALERT, RESPIRATIONS EASY, N/L. SKIN W/D. WILL CONTINUE TO MONITOR PT.
[2021-01-27 06:42] LABS: Potassium 2.8 mmol/L (3.3-5.1)
--- NOTE | 2021-01-27 07:07 | PC.NURSE ---
REPORT TO UZAIR LOPEZ.
[2021-01-27 07:54] VITALS: BP 112/64; PULSE 98; RESP 16
--- NOTE | 2021-01-27 07:57 | PC.NURSE ---
pt alert/oriented. Intact neuros. Reports generalized weakness intermittently x months but numbness tingling to bl hands/feet. Ambulatory to bathroom, steady on feet. Ate breakfast and tolerated well. Awaiting PT consult. Will have home meds verified by provider.
[2021-01-27 08:59] VITALS: BP 112/64; PULSE 98
--- NOTE | 2021-01-27 10:08 | MHC.CM.ED ---
Patient remains in ER. Physical therapy eval completed. Short term rehab is recommended. Clinical updates sent to the facilities in [place] contracted with patient's insurance: [facility] on [address]. Patient received Birst vaccines on 05/06 and 05/30. Continue to monitor for d/c needs.
[2021-01-27 11:22] VITALS: BP 112/64; PULSE 98
[2021-01-27] MEDS: Levothyroxine Sodium 112 MCG TABLET PO (11:22)
[2021-01-27] MEDS: Potassium Chloride ER 20 MEQ TAB.ER.PRT 40 MEQ PO (11:22)
[2021-01-27] MEDS: cilostazoL 50 MG TABLET PO (11:22)
[2021-01-27] MEDS: amLODIPine Besylate 5 MG TABLET PO (11:22)
[2021-01-27] MEDS: Nitrofurantoin Monohyd/M-Cryst 100 MG CAPSULE PO (11:23)
[2021-01-27] MEDS: hydroCHLOROthiazide 25 MG TABLET PO (11:23)
--- NOTE | 2021-01-27 13:30 | MHC.CM.ED ---
[facility] is able to offer a bed. Patient accepts beds. [facility] is in the process of obtaining insurance auth. Continue to monitor for d/c needs.
[2021-01-27 13:35] VITALS: BP 128/71; PULSE 100; RESP 16; TEMP 36.4; O2SAT 97
--- NOTE | 2021-01-27 13:35 | PC.NURSE ---
Pt has been calm, axox3, able to states needs, ambulatory to BR w/o diff. skin pwd. poor peripheral circulation in fingers.
[2021-01-27 14:00] VITALS: BP 127/75; PULSE 111; RESP 18; O2SAT 96
--- NOTE | 2021-01-27 15:23 | MHC.CM.ED ---
Kelly Paulino obtained insurance auth. Patient can leave at 6pm. [facility] booked. Med nec in chart. Patient, Onelia DUNNE and Torri FERGUSON aware. Continue to monitor for d/c needs.
[2021-01-27 15:50] LABS: Anion Gap 11 (12-20); Blood Urea Nitrogen 4 mg/dL (9-16); Carbon Dioxide 27 mmol/L (22-29); Chloride 104 mmol/L (96-108); Creatinine Clr Calc Pharmacy 63.6; Estimated Glomerular Filt Rate > 60; Glucose Random 122 mg/dL (60-115); Potassium 2.7 mmol/L (3.3-5.1); Sodium 139 mmol/L (135-145)
[2021-01-27 16:03] LABS: Calcium 8.6 mg/dL (8.4-10.2)
--- NOTE | 2021-01-27 16:43 | PC.NURSE ---
pt has been ambulatory to BR with steady gait. slightly labored resp when returning but recovers quickly. it aware that K+ remains low and will continue with replacement at SNF. no complaint (except that it's taking too long to leave) at this time.
[2021-01-27] MEDS: Potassium Chloride Packet 20 MEQ PACKET 60 MEQ PO (17:29)
[2021-01-27 18:11] VITALS: BP 120/76; PULSE 113; RESP 16; TEMP 36.6; O2SAT 96
--- NOTE | 2021-01-27 19:32 | PC.NURSE ---
Rn to RN with Radha at [facility] on [address].
== END 2021-01-27 19:36 | disposition skilled nursing facility (03) ==
PROVIDERS: Emergency Medicine; Physician Assistant; Emergency Provider Emergency Medicine Emergency Medical Services
DX: I73.1 Thromboangiitis obliterans [Buerger's disease] (principal); E87.2 Acidosis; E87.6 Hypokalemia; F17.210 Nicotine dependence, cigarettes, uncomplicated; Z20.822 Contact with and (suspected) exposure to COVID-19; Z79.899 Other long term (current) drug therapy; Z71.6 Tobacco abuse counseling
CPT/HCPCS: 36415; 71275; 74174; 80048; 80076; 81001; 83605; 83615; 83690; 83735; 84132; 84484; 85025; 85610; 85652; 85730; 86140; 87040; 87086; 87088; 87186; 87635; 93005; 93931; 96361; 96365; 96366; 96375; 97161; 99285; 99291; J0696; Q9967

== ENCOUNTER 2021-06-02 21:32 | Emergency (ER) | payer MEDICARE, SELFPAY ==
--- NOTE | 2021-06-02 | ECG_ITS ---
Test Reason : Chest pain Blood Pressure : / mmHG Vent. Rate : 069 BPM Atrial Rate : 069 BPM P-R Int : 184 ms QRS Dur : 082 ms QT Int : 408 ms P-R-T Axes : 053 062 079 degrees QTc Int : 437 ms Normal sinus rhythm Normal ECG When compared with ECG of 26-JAN-2021 17:27, Vent. rate has decreased BY 38 BPM Referred By: Generic ED Physician Electronically Signed By:YONI GIFFORD MD
--- NOTE | ~2021-06-02 | XR_ITS ---
EXAMINATION: XR CHEST CLINICAL INFORMATION: Chest pain COMPARISON: 10/21/2020 TECHNIQUE: Frontal view of the chest was obtained. FINDINGS: Cardiac leads overlie the chest. The lungs are well expanded. There is no focal consolidation, edema, or effusion. No pneumothorax. The cardiomediastinal silhouette is within normal limits. No acute osseous abnormality. XR/XR chest 1V IMPRESSION: No acute pulmonary finding.
[2021-06-02 21:49] VITALS: BP 136/64; BP 139/72; PULSE 62; PULSE 65; RESP 18; TEMP 36.7; O2SAT 95; O2SAT 96; BMI 17.7
--- NOTE | 2021-06-02 23:00 | ED_ITS ---
HPI - Chest Pain General Chief Complaint: Chest Pain Stated Complaint: Chest pain Time Seen by Provider: 06/02/21 23:00 Source: patient Mode of arrival: ambulatory Limitations: no limitations History of Present Illness HPI narrative: Will history of coronary disease status post stent placement in 04/28 on Plavix and aspirin was doing fine since the stent placed started feeling left-sided chest pain today with different in the last time and she had after neck this time pain is sharp lasting for few seconds no chest pain at this time patient received 324 mg aspirin by EMS pain gets worse with movement and palpation no shortness of breath or cough no fever or chills Related Data Home Medications Medication Instructions Recorded Confirmed albuterol sulfate 90 mcg/actuation 2 puff INHALATION Q6H PRN 05/19/21 05/19/21 aerosol inhaler Previous Rx's Medication Instructions Recorded levothyroxine 112 mcg tablet 112 mcg PO DAILY #90 tab 02/26/21 clopidogrel 75 mg tablet 75 mg PO DAILY 90 Days #90 tab 04/28/21 aspirin 81 mg tablet,delayed 81 mg PO DAILY #90 tab 05/19/21 release atorvastatin 80 mg tablet 80 mg PO DAILY #90 tab 05/19/21 blood pressure monitor #1 ea 05/19/21 metoprolol succinate 25 mg 25 mg PO DAILY #90 tab 05/19/21 tablet,extended release 24 hr varenicline 0.5 mg tablet 0.5 mg PO BID #6 tab 05/19/21 varenicline 0.5 mg tablet 0.5 mg PO DAILY #3 tab 05/19/21 varenicline 1 mg tablet 1 mg PO BID 28 Days #56 tab 05/19/21 Allergies Allergy/AdvReac Type Severity Reaction Status Date / Time No Known Allergies Allergy Verified 06/02/21 21:49 [No Known Allergies*] Review of Systems Review of Systems: Yes all other systems are reviewed and are negative [facility] Past Medical History Medical History Alcohol abuse COPD (chronic obstructive pulmonary disease) COPD (chronic obstructive pulmonary disease) Essential hypertension Hypomagnesemia Hypothyroidism Surgical History History of heart artery stent Family History Family History Mother No problems noted. Father No problems noted. Social History Social History Household Members: None Housing: Apartment Do you presently have visiting nurse or other home services: No Alcohol intake: current Alcohol intake frequency: holidays/special occasions only Alcohol type: wine Patient Tobacco Use Status: Current everyday Tobacco user Tobacco use type: Cigarette Cigarettes Per Day: 10 e-Cigarette/Vaping Use: Never Used Advance Directives: No service: No Current occupational status: employed Physical Exam Vital Signs: Vital Signs: Last Vital Signs Temp 98.3 F 06/02/21 23:05 Pulse 65 06/02/21 23:05 Resp 20 06/02/21 23:05 BP 145/63 H 06/02/21 23:05 Pulse Ox 97 06/02/21 23:05 BMI result Body Mass Index 17.7 Appearance: Alert. Oriented X3. No acute distress. Eyes: PERRLA, No Nystagmus ENT: Pharynx normal. Oral Mucosa moist Neck: Normal inspection. Neck supple. CVS: Normal heart rate and rhythm. Pulses normal. Respiratory: No respiratory distress. Equal air entry bilateral, no wheezing/rales/rhonchi left anterior chest wall tenderness+ Abdomen: Soft and nontender. Bowel sounds are present, no mass palpable, no CVA tenderness Skin: Skin warm and dry. Normal skin color. Normal skin turgor. Extremities: No lower extremity edema. No calf tenderness Neuro: Oriented X 3. MDM - Chest Pain MDM Narrative Medical decision making narrative: Patient atypical sharp chest pain for more than 12 hours duration no EKG changes cardiac enzymes negative will discharge patient home advised to continue her Plavix and aspirin and follow up with general adjuster also patient advised to stop smoking Lab Data Attestation: I reviewed the patient's lab results. Result diagrams: 06/02/21 23:43 06/02/21 23:43 Labs: Lab Results 06/02/21 06/02/21 06/02/21 Range/Units 23:43 23:43 23:43 WBC 7.5 (4.8-10.8) X10*3/uL RBC 3.55 L (4.20-5.50) X10*6/uL Hgb 11.4 L (12.0-16.0) g/dl Hct 35.2 L (37.0-47.0) % MCV 99.2 H (80.0-98.0) fL MCH 32.1 (27.0-33.0) pg MCHC 32.4 (31.0-35.0) g/dl RDW 12.5 (11.0-16.0) % Plt Count 300 (160-400) X10*3/uL MPV 9.8 (9.4-12.3) fL Immature Gran % (Auto) 0.3 (0.0-0.4) % Neut % (Auto) 57.9 (45-73) % Lymph % (Auto) 27.0 (20-40) % Vermillion % (Auto) 8.3 (2-11) % Eos % (Auto) 5.8 H (0-4) % Baso % (Auto) 0.7 (0-2) % Lymph # (Auto) 2.0 (1.2-4.9) X10*3/uL [place]illion # (Auto) 0.6 (0.1-1.2) X10*3/uL Eos # (Auto) 0.4 (0.0-0.4) X10*3/uL Baso # (Auto) 0.1 (0.0-0.2) X10*3/uL Abs Immat Gran (auto) 0.02 (0.00-0.03) X10*3/uL Absolute Neuts (auto) 4.3 (2.0-8.3) x10*3/uL Absolute Nucleated RBC 0.000 (0.0-0.012) X10*3/uL Nucleated RBC % (auto) 0.0 (0.0-0.2) /100WBC PT (9.9-13.0) SEC INR (0.9-1.1) APTT (24.1-38.0) SEC Sodium 140 (135-145) mmol/L Potassium 4.6 D (3.3-5.1) mmol/L Chloride 109 H (96-108) mmol/L Carbon Dioxide 20 L (22-29) mmol/L Anion Gap 16 (12-20) BUN 20 H (9-16) mg/dL Creatinine 0.73 (0.5-1.4) mg/dL Estim Creat Clear Calc 60.4 Estimated GFR > 60 Random Glucose 93 (60-115) mg/dL Calcium 9.9 D (8.4-10.2) mg/dL Troponin I High Sens 5.7 (<3.5-17.0) ng/L 06/02/21 Range/Units 23:55 WBC (4.8-10.8) X10*3/uL RBC (4.20-5.50) X10*6/uL Hgb (12.0-16.0) g/dl Hct (37.0-47.0) % MCV (80.0-98.0) fL MCH (27.0-33.0) pg MCHC (31.0-35.0) g/dl RDW (11.0-16.0) % Plt Count (160-400) X10*3/uL MPV (9.4-12.3) fL Immature Gran % (Auto) (0.0-0.4) % Neut % (Auto) (45-73) % Lymph % (Auto) (20-40) % Vermillion % (Auto) (2-11) % Eos % (Auto) (0-4) % Baso % (Auto) (0-2) % Lymph # (Auto) (1.2-4.9) X10*3/uL Vermillion # (Auto) (0.1-1.2) X10*3/uL Eos # (Auto) (0.0-0.4) X10*3/uL Baso # (Auto) (0.0-0.2) X10*3/uL Abs Immat Gran (auto) (0.00-0.03) X10*3/uL Absolute Neuts (auto) (2.0-8.3) x10*3/uL Absolute Nucleated RBC (0.0-0.012) X10*3/uL Nucleated RBC % (auto) (0.0-0.2) /100WBC PT 11.3 (9.9-13.0) SEC INR 1.0 (0.9-1.1) APTT 36.6 (24.1-38.0) SEC Sodium (135-145) mmol/L Potassium (3.3-5.1) mmol/L Chloride (96-108) mmol/L Carbon Dioxide (22-29) mmol/L Anion Gap (12-20) BUN (9-16) mg/dL Creatinine (0.5-1.4) mg/dL Estim Creat Clear Calc Estimated GFR Random Glucose (60-115) mg/dL Calcium (8.4-10.2) mg/dL Troponin I High Sens (<3.5-17.0) ng/L ECG Data ECG #1: Interpretation: Normal sinus rhythm heart rate 69 beats per minute normal intervals normal axis no acute STT wave changes no acute ischemia Discharge Plan Discharge Clinical Impression: Chest pain Patient Disposition: Home, Self-Care Instructions: Chest Pain (ED) Additional Instructions: Continue medication as prescribed by general adjuster and follow up with him Report to the ER if worsening of the chest pain/shortness of breath Prescriptions: No [facility] levothyroxine 112 mcg tablet 112 mcg PO DAILY Qty: 90 RF: 0 clopidogrel 75 mg tablet 75 mg PO DAILY 90 Days Qty: 90 RF: 3 albuterol sulfate 90 mcg/actuation HFA aerosol inhaler 2 puff inhalation Q6H PRNRF: 0 aspirin 81 mg tablet,delayed release (DR/EC) 81 mg PO DAILY Qty: 90 RF: 1 atorvastatin 80 mg tablet 80 mg PO DAILY Qty: 90 RF: 1 metoprolol succinate 25 mg tablet extended release 24 hr 25 mg PO DAILY Qty: 90 RF: 1 varenicline 0.5 mg tablet 0.5 mg PO DAILY Qty: 3 RF: 0 varenicline 0.5 mg tablet 0.5 mg PO BID Qty: 6 RF: 0 varenicline 1 mg tablet 1 mg PO BID 28 Days Qty: 56 RF: 1 (DME) blood pressure monitor Kit See Rx Instructions .Route Qty: 1 RF: 0
[2021-06-02 23:05] VITALS: BP 145/63; PULSE 65; RESP 20; TEMP 36.8; O2SAT 97
[2021-06-02 23:46] LABS: MANUAL DIFF FLAG NO
[2021-06-02 23:49] LABS: Basophils Absolute Auto 0.1 X10*3/uL (0.0-0.2); Basophils Percent Auto 0.7 % (0-2); Eosinophils Absolute Auto 0.4 X10*3/uL (0.0-0.4); Eosinophils Percent Auto 5.8 % (0-4); Hematocrit 35.2 % (37.0-47.0); Hemoglobin 11.4 g/dl (12.0-16.0); Imm Gran Abs Auto 0.02 X10*3/uL (0.00-0.03); Imm Gran Pct Auto 0.3 % (0.0-0.4); Mean Corpuscular HGB Conc 32.4 g/dl (31.0-35.0); Mean Corpuscular Hemoglobin 32.1 pg (27.0-33.0); Mean Corpuscular Volume 99.2 fL (80.0-98.0); Mean Platelet Volume 9.8 fL (9.4-12.3); Monocytes Absolute Auto 0.6 X10*3/uL (0.1-1.2); Monocytes Percent Auto 8.3 % (2-11); Neutrophils Absolute Auto 4.3 x10*3/uL (2.0-8.3); Neutrophils Percent Auto 57.9 % (45-73); Platelet Count 300 X10*3/uL (160-400); Red Blood Count 3.55 X10*6/uL (4.20-5.50); Red Cell Distribution Width 12.5 % (11.0-16.0); White Blood Count 7.5 X10*3/uL (4.8-10.8)
[2021-06-03 00:01] LABS: Anion Gap 16 (12-20); Blood Urea Nitrogen 20 mg/dL (9-16); Calcium 9.9 mg/dL (8.4-10.2); Carbon Dioxide 20 mmol/L (22-29); Chloride 109 mmol/L (96-108); Creatinine Clr Calc Pharmacy 60.4; Estimated Glomerular Filt Rate > 60; Glucose Random 93 mg/dL (60-115); Potassium 4.6 mmol/L (3.3-5.1); Sodium 140 mmol/L (135-145)
[2021-06-03 00:09] LABS: Troponin-I High Sensitivity 5.7 ng/L (<3.5-17.0)
[2021-06-03 00:17] LABS: Prothrombin Time 11.3 SEC (9.9-13.0)
[2021-06-03 00:20] LABS: Partial Thromboplastin Time 36.6 SEC (24.1-38.0)
[2021-06-03 01:33] LABS: COVID-19 Test Negative (Negative)
[2021-06-03 01:44] VITALS: BP 145/63; PULSE 58; RESP 16
--- NOTE | 2021-06-03 01:48 | PC.NURSE ---
pt a&o, denies any sob or chest pain. Pt is able to ambulate with a steady gait. No dizziness or light headedness at this time. Reviewed discharged instructions. Pt verbalized understanding.
== END 2021-06-03 01:51 | disposition home or self-care (01) ==
PROVIDERS: Emergency Provider Internal Medicine; PCP Internal Medicine
DX: R07.89 Other chest pain (principal); I25.10 Atherosclerotic heart disease of native coronary artery without angina pectoris; F17.210 Nicotine dependence, cigarettes, uncomplicated; Z20.822 Contact with and (suspected) exposure to COVID-19; Z79.01 Long term (current) use of anticoagulants; Z71.6 Tobacco abuse counseling; Z79.899 Other long term (current) drug therapy
CPT/HCPCS: 36415; 71045; 80048; 84484; 85025; 85610; 85730; 87635; 93005; 99283; 99285

== ENCOUNTER → 2021-06-08 13:56 | Outpatient (BNVA) | payer MEDICARE, SELFPAY | PROVIDERS: PCP Internal Medicine; Referring Provider Internal Medicine; Visit Provider Internal Medicine | DX: I25.2 Old myocardial infarction (principal); I25.5 Ischemic cardiomyopathy; I10 Essential (primary) hypertension; F17.210 Nicotine dependence, cigarettes, uncomplicated; Z79.82 Long term (current) use of aspirin | CPT/HCPCS: 99202 ==

== ENCOUNTER → 2021-08-03 12:36 | Outpatient (BNVA) | payer MEDICARE, SELFPAY | PROVIDERS: PCP Internal Medicine; Visit Provider Hospitalist | DX: J42 Unspecified chronic bronchitis (principal); R91.8 Other nonspecific abnormal finding of lung field; I25.10 Atherosclerotic heart disease of native coronary artery without angina pectoris; F17.210 Nicotine dependence, cigarettes, uncomplicated | CPT/HCPCS: 99202 ==

== ENCOUNTER → 2021-08-28 12:38 | Outpatient (REF) | payer MEDICARE, SELFPAY ==
--- NOTE | 2021-08-28 12:42 | CA_ITS ---
Transthoracic Echocardiogram Patient (Last, First, Middle): Chanda Calvert L Gender: Female Date of : 1955 Age: 65 Procedure Date: 08/28/2021 Procedure Type: Transthoracic Echocardiogram Location: OP Height: 165.1 cm Weight: 56.25 kg BSA: 1.61 m2 Heart Rate: bpm BP: 132 / 72 mmHg Athletic Agent: CORNELL Referring MD: Christian Wu MD [employer] Football Coach: Hamzah Byrne MD Symptoms: I21.02 - ST elevation (STEMI) myocardial infarction invol... Study Quality: Adequate ECG Rhythm: Sinus Conclusions: - 1. Normal LV systolic and diastolic function 2. Normal cardiac valvular Doppler 3. No gross pericardial effusion Findings Left Ventricle Normal left ventricular size, thickness, and systolic function. The visually estimated ejection fraction is between 60-65%. Spectral Doppler is indicative of a normal filling pattern. measured global longitudinal endocardial strain is -20.4% which is within normal limits Wall Motion Rest Echo Findings The basal inferior segment is hypokinetic. All other scored wall segments showed normal motion. Right Ventricle Normal right ventricular cavity size and systolic function. Atria The left atrium is normal in size. Interatrial shunt cannot be excluded. The right atrium is normal in size. Aortic Valve Normal aortic valve structure and function. There is no aortic valve stenosis. There is no aortic valve regurgitation. Mitral Valve Normal mitral valve structure and function. There is trace mitral valve regurgitation. There is no mitral valve stenosis. Tricuspid Valve Likely normal tricuspid valve structure and function. Tricuspid regurgitation envelope is inadequate for calculation of right ventricular systolic pressure. Great Vessels All visible segments of the aorta are normal in size. The pulmonary artery was not well visualized. Venous The inferior vena cava is normal in size and collapses greater than 50% with inspiration. Pericardium/Pleural There is no evidence of pericardial effusion. Prior Study Comparison No prior study available for comparison. Measurements 2D Linear Measurements IVSd: 1.02 0.6-0.9/0.6-1.0 cm LVIDd: 4.25 3.9-5.3/4.2-5.9 cm LVIDd Index: 2.64 2.4-3.2/2.2-3.1 cm/m2 LVIDs: 2.74 2.0-3.6 cm LVPWd: 0.76 0.7-1.1 cm LA Diam: 3.00 2.7-3.8/3.0-4.0 cm LAIDs Index: 1.86 1.5-2.3 cm/m2 LV Mass: 148.53 67-162/88-224 g LV Mass Index: 92.26 43-95/49-115 g/m2 LVOT Diam: 2.00 3.0+(-)1.3 cm Mitral Valve MV Pk E: 1.08 MV PK A: 0.88 MV Decel Time: 202.00 E/A: 1.20 E'Lateral: 8.16 E'Medial: 5.98 E/E' Med: 18.10 E/E' Lat: 13.20 PHT: 59.00 MVA PHT: 3.73 Decel Mcdowell: 5.34 Aortic Valve AoV Pk Ajit: 1.47 AoV Mn Ajit: 1.09 AoV VTI: 0.33 AoV Pk Grad: 9.00 Aov Mn Grad: 5.00 JULIUS Cont.VTI: 3.06 LVOT LVOT Pk Ajit: 1.42 LVOT Mn Ajit: 1.02 LVOT VTI: 0.32 LVOT Pk Grad: 8.00 LVOT Mn Grad: 5.00 LVOT Diam: 2.00 LVOT Area: 3.14 Diastolic Function MV Pk E: 1.08 MV Pk A: 0.88 E/A: 1.20 E'Medial: 5.98 E/E' Med: 18.10 E' Laterial: 8.16 E/E' Lat: 13.20 Right Ventricle TAPSE (mm): 16.50 TVS' Ajit: 10.10 Tricuspid Valve RA Press: 3.00 Great Vessels Aorta Sinus of Valsalva: 3.30 2.0-3.[address] Ridge: 3.20 1.7-3.4 cm Ao Asc: 3.40 2.1-3.4 cm Pulmonary Valve PV Pk Ajit: 1.02 Peak PV Grad: 4.00 Updated in Other Vendor System with Status of Final Hamzah Byrne MD electronically signed on 08/29/2021 1:22:31 PM with status of Final
== END ==
LOC: HO.CARD 12:38
PROVIDERS: PCP Internal Medicine; Visit Provider Internal Medicine
DX: I21.02 ST elevation (STEMI) myocardial infarction involving left anterior descending coronary artery (principal)
CPT/HCPCS: 93306

== ENCOUNTER → 2021-09-09 13:13 | Outpatient (BNVA) | payer MEDICARE, SELFPAY | PROVIDERS: PCP Internal Medicine; Referring Provider Internal Medicine; Visit Provider Internal Medicine | DX: I25.5 Ischemic cardiomyopathy (principal); I10 Essential (primary) hypertension; I25.2 Old myocardial infarction; F17.210 Nicotine dependence, cigarettes, uncomplicated; Z79.82 Long term (current) use of aspirin; Z79.899 Other long term (current) drug therapy | CPT/HCPCS: 99212 ==

== ENCOUNTER → 2022-07-07 12:37 | Outpatient (BNVA) | payer MEDICARE, SELFPAY | PROVIDERS: PCP Internal Medicine; Referring Provider Internal Medicine; Visit Provider Internal Medicine | DX: I25.10 Atherosclerotic heart disease of native coronary artery without angina pectoris (principal); I21.02 ST elevation (STEMI) myocardial infarction involving left anterior descending coronary artery; I10 Essential (primary) hypertension; F17.210 Nicotine dependence, cigarettes, uncomplicated | CPT/HCPCS: 93005; 99212 ==

== ENCOUNTER 2022-11-17 09:43 | Outpatient (REF) | payer MEDICARE, SELFPAY ==
--- NOTE | 2022-11-17 09:48 | EMG_ITS ---
Please see scanned EMG / Nerve Conduction Report. MTDD
[2022-11-17 11:27] LABS: MANUAL DIFF FLAG NO
[2022-11-17 12:56] LABS: Basophils Absolute Auto 0.1 X10*3/uL (0.0-0.2); Basophils Percent Auto 0.8 % (0-2); Eosinophils Absolute Auto 0.3 X10*3/uL (0.0-0.4); Hemoglobin 14.5 g/dl (12.0-16.0); Imm Gran Abs Auto 0.01 X10*3/uL (0.00-0.03); Imm Gran Pct Auto 0.1 % (0.0-0.4); Lymphocytes Percent Auto 28.9 % (20-40); Mean Corpuscular Hemoglobin 32.2 pg (27.0-33.0); Mean Corpuscular Volume 97.6 fL (80.0-98.0); Mean Platelet Volume 9.6 fL (9.4-12.3); Monocytes Absolute Auto 0.4 X10*3/uL (0.1-1.2); Monocytes Percent Auto 5.7 % (2-11); Neutrophils Absolute Auto 4.3 x10*3/uL (2.0-8.3); Neutrophils Percent Auto 60.5 % (45-73); Platelet Count 326 X10*3/uL (160-400); Red Blood Count 4.51 X10*6/uL (4.20-5.50); White Blood Count 7.1 X10*3/uL (4.8-10.8)
[2022-11-17 14:28] LABS: Alanine Aminotransferase 13 U/L (0-31); Albumin Level 4.4 g/dL (3.5-5.0); Alkaline Phosphatase 100 U/L (39-117); Aspartate Amino Transferase 14 U/L (5-31); Bilirubin Direct 0.2 mg/dL (0.0-0.5); Bilirubin Total 0.7 mg/dL (0.0-1.0); Cholesterol 225 mg/dL; HDL Cholesterol 63 mg/dL; Iron 120 mcg/dL (30-160); LDL Cholesterol Calculated 132 mg/dl; Percent Iron Saturation 35 % (15-50); Total Iron Binding Capacity 347 mcg/dL (228-428); Total Protein 7.1 g/dL (6.5-8.0); Triglycerides 153 mg/dL; Unsaturated Iron Binding 227 ug/dL
[2022-11-17 14:33] LABS: Thyroid Stimulating Hormone 1.46 uIU/mL (0.32-4.0); Vitamin D 25-OH Total 13.9 ng/mL (>30)
== END 2022-11-17 09:44 | disposition home or self-care (01) ==
LOC: HO.NEURO 09:43
PROVIDERS: PCP Internal Medicine; Visit Provider Internal Medicine
DX: R20.2 Paresthesia of skin (principal); E78.5 Hyperlipidemia, unspecified; D64.9 Anemia, unspecified; E03.9 Hypothyroidism, unspecified; E55.9 Vitamin D deficiency, unspecified; I21.02 ST elevation (STEMI) myocardial infarction involving left anterior descending coronary artery; I25.10 Atherosclerotic heart disease of native coronary artery without angina pectoris
CPT/HCPCS: 36415; 80061; 80076; 82306; 82607; 82746; 83540; 84443; 85025; 95885; 95913

== ENCOUNTER 2022-12-27 13:12 | Outpatient (AMB) | payer MEDICARE, SELFPAY ==
--- NOTE | 2022-12-27 13:17 | A.OFFPC_ITS ---
Vital Signs 12/27/22 13:18 Height 5 ft 6 in Weight 137 lb 8 oz BMI 22.2 BMI Reason not done Patient refused/unable BP 130/72 Blood Pressure Location Lt brachial Position Sitting Pulse 78 Pulse Source Pulse Oximeter Pulse Oximetry (%) 95 Oxygen Delivery Method Room Air Intake Visit Reasons: Cataract surgery-R eye 01/03, L eye 01/17 Allergies No Known Allergies [No Known Allergies*] Allergy (Verified 12/27/22 13:22) Tobacco use date assessed: 12/27/22 Dental Screening Dental Screen Date: 12/27/22 Did you have a dental visit in the last 12 months?: No Did you have a dental problem in the last 6 months where you did not have access to dental care?: No Was dental information given to patient?: Yes HPI HPI Comments History of Present Illness Details 67-year-old female past medical history significant for hypothyroidism, CAD, ischemic cardiomyopathy, hypertension and COPD. Patient of Dr. Ernandez presents today for pre-op for cataract surgery. Patient has an appointment scheduled for right eye on 01/03/13 and left eye on 01/17/[address] Iqbal under local anesthia. Patient denies any chest pain, palpitations, shortness of breath and syncope.Laboratory Tests 11/17/22 11/17/22 11:26 11:26 WBC 7.1 RBC 4.51 D Hgb 14.5 D Hct 44.0 D MCV 97.6 MCH 32.2 MCHC 33.0 RDW 13.0 Plt Count 326 MPV 9.6 Immature Gran % (A uto) 0.1 Neut % (Auto) 60.5 Lymph % (Auto) 28.9 [place] % (Auto) 5.7 Eos % (Auto) 4.0 Baso % (Auto) 0.8 Lymph # (Auto) 2.0 [place] # (Auto) 0.4 Eos # (Auto) 0.3 Baso # (Auto) 0.1 Abs Immat Gran (au to) 0.01 Absolute Neuts (au to) 4.3 Absolute Nucleated RBC 0.000 Nucleated RBC % (a uto) 0.0 AST 14 ALT 13 TSH 1.46 PFSH Medical History Alcohol abuse COPD (chronic obstructive pulmonary disease) Coronary artery disease (~2020) Essential hypertension Hypomagnesemia Hypothyroidism Personal history of nicotine dependence ST elevation (STEMI) myocardial infarction involving left anterior descending coronary artery (~2020) Surgical History History of heart artery stent (~2020) History of tonsillectomy Family History Mother Cancer Father No problems noted. Social History Household Members: None Housing: Apartment Do you presently have visiting nurse or other home services: No Alcohol intake: current Alcohol intake frequency: a few times a week Alcohol type: wine Patient Tobacco Use Status: Current everyday Tobacco user Tobacco use type: Cigarette Cigarettes Per Day: 6 e-Cigarette/Vaping Use: Never Used Second Hand Smoke Exposure: No service: No Current occupational status: employed Current occupational exposures/hazards: No Cognitive needs: No Hearing needs: No Vision needs: Yes Questionnaire PHQ-9 Over the last 2 weeks, how often have you been bothered by any of the following problems? 1. Little interest or pleasure in doing things: not at all 2. Feeling down, depressed, or hopeless: not at all 3. Trouble falling or staying asleep, or sleeping too much: not at all 4. Feeling tired or having little energy: not at all 5. Poor appetite or overeating: not at all 6. Feeling bad about yourself - or that you are a failure or have let yourself or your family down: not at all 7. Trouble concentrating on things, such as reading the newspaper or watching television: not at all 8. Moving or speaking so slowly that other people could have noticed. Or the opposite - being so fidgety or restless that you have been moving around a lot more than usual: not at all 9. Thoughts that you would be better off or of hurting yourself in some way: not at all Total score: 0 Depression Screening Interpretation: Negative 32807 - PHQ-9 Billing: Yes Source: Developed by Drs. Benji Kelly, Michaela Hills, John Madera and colleagues, with an educational geno from [employer]. Thrive Questionnaire Date Thrive assessed: 08/04/22 I am a: Patient What is your living situation today?: I have a steady place to live Within the past 12 months, did the food you bought not last and you didn't have the money to get more?: Never true Within the past 12 months, did you worry whether your food would run out before you got money to buy more?: Never true Currently or been in a relationship where the following occur: no concerns reported AUDIT C Alcohol Use Questionnaire (AUDIT-C) 1. How often do you have a drink containing alcohol?: 2-3 times a week 2. How many drinks containing alcohol do you have on a typical day when you are drinking?: 1 or 2 3. How often do you have six or more drinks on one occasion?: Never Total Score: 3 Score Reviewed/Action Taken: Yes ANIL-7 AMB Questionnaire ANIL-7 Date ANIL - 7 assessed: 08/04/22 Feeling nervous, anxious, or on edge: 0 = Not at all Not being able to stop or control worryin = Not at all Worrying too much about different things: 0 = Not at all Trouble relaxin = Not at all Being so restless that it is hard to sit still: 0 = Not at all Becoming easily annoyed or irritable: 0 = Not at all Feeling afraid as if something awful might happen: 0 = Not at all Total ANIL-7 score (0-4 normal; 5-9 mild; 10-14 moderate; 15-21 severe): 0 Source: Developed by Drs. Benji Kelly, Michaela Hills, John Madera and colleagues, with an educational geno from [employer]. ANIL-7 Assessment Billing ANIL-7 Assessment Tool: ANIL-7 Assessment 93853 Review of Systems Const Denies chills, Denies fatigue, Denies fever(s) and Denies poor appetite Eyes Denies no additional complaints ENT Reports Normal hearing present Card Denies chest pain, Denies syncope, Denies rapid heart rate and Denies dyspnea Resp Denies cough and Denies dyspnea GI Denies change in stool character, Denies constipation, Denies diarrhea, Denies nausea and Denies vomiting Denies urinary frequency, Denies dysuria and Denies urinary urgency Neuro Reports Normal hearing present, Denies confusion and Denies syncope Psych Denies confusion Endo Denies fatigue Physical exam (Primary Care) Vital Signs: Last Vital Signs Pulse 78 12/27/22 13:18 BP 130/72 12/27/22 13:18 Pulse Ox 95 12/27/22 13:18 Oxygen Delivery Method Room Air 12/27/22 13:18 BMI result Body Mass Index 22.2 Tobacco/Smoking Status: Tobacco use Status Tobacco use date assessed 12/27/22 12/27/22 13:24 Patient Tobacco Use Status Current everyday Tobacco 12/27/22 13:24 Tobacco use type Cigarette 12/27/22 13:24 e-Cigarette/Vaping Use Never Used 12/27/22 13:24 PHQ-9: PHQ-9 Score PHQ-9: Total score 0 12/27/22 13:24 Depression Screening Interpretation: Negative Thrive Assessment: Date of Thrive Assessment Date Thrive assessed 08/04/22 12/27/22 13:24 Currently or been in a relationship where the following occur: no concerns reported Const General: No confusion Orientation/consciousness: No confusion HENMT Head: Yes normocephalic and Yes atraumatic Eyes Conjunctivae: conjunctivae normal Chest Chest palpation & inspection: normal inspection of the chest Resp Effort & Inspection: normal respiratory effort Auscultation: clear to auscultation bilaterally, no crackles, no rhonchi and no wheezes Cardio Rate: regular rate Rhythm: regular rhythm Heart sounds: S1 normal heart sound present and S2 normal heart sound present GI Inspection: Yes normal to inspection Neuro General: No confusion Cranial nerves: Yes Normal hearing present Extrem General: No edema Assessment and Plan Assessment & Plan (1) Preop examination: Code(s): Z01.818 - Encounter for other preprocedural examination Plan: Based on above examination and review of recent work patient is of average risk to undergo schedule cataract surgery. No further workup needed this time and patient can proceed with scheduled surgery. (2) HTN (hypertension): Code(s): I10 - Essential (primary) hypertension Plan: Continue on metoprolol 25 mg daily. Follow low-salt diet exercise. (3) COPD (chronic obstructive pulmonary disease): Code(s): J44.9 - Chronic obstructive pulmonary disease, unspecified Qualifiers: COPD type: chronic bronchitis Chronic bronchitis type: unspecified Qualified Code(s): J42 - Unspecified chronic bronchitis Plan: Refill sent on Ventolin inhaler as requested by patient. (4) Hypothyroidism: Code(s): E03.9 - Hypothyroidism, unspecified Qualifiers: Hypothyroidism type: unspecified Qualified Code(s): E03.9 - Hypothyroidism, unspecified Plan: Continue on levothyroxine 112 mcg daily. Plan Follow-up in 3 months or sooner if needed Medications: Refilled 2 Ventolin HFA 90 mcg/actuation (albuterol sulfate) 2 puffs inhalation Q6H 30 days PRN 8 grams 2RF shortness of breath or wheezing NS Coding Level of Care Code Est Pt Level 4 (65781) Diagnoses Preop examination Z01.818 HTN (hypertension) I10 COPD (chronic obstructive pulmonary disease) J42 COPD type: chronic bronchitis Chronic bronchitis type: unspecified Hypothyroidism E03.9 Hypothyroidism type: unspecified Additional Codes ANIL-7 Assessment Billing - ANIL-7 Assessment Tool: ANIL-7 Assessment 19701 ([id number])
[2022-12-27 13:18] VITALS: BP 130/72; PULSE 78; O2SAT 95; BMI 22.2
== END 2022-12-27 13:58 | disposition home or self-care (01) ==
PROVIDERS: PCP Internal Medicine; Visit Provider Nurse Practitioner Family
DX: Z01.818 Encounter for other preprocedural examination (principal); I10 Essential (primary) hypertension; J42 Unspecified chronic bronchitis; E03.9 Hypothyroidism, unspecified
CPT/HCPCS: 99214

== ENCOUNTER 2023-01-03 07:43 | Day surgery (SDC) | payer MEDICARE, SELFPAY ==
[2022-12-29 13:12] VITALS: BMI 22.1
--- NOTE | 2022-12-31 08:22 | MHC.SHP ---
Pre-Procedural Eval Section A Date of Service: 12/31/22 The patient is an INPATIENT: No Changes since office visit: No Cold of Flu in the past 2 weeks, No New Medical Problems, No Changes in Medication and No Patient answered all questions The History & Physical has been completed within 30 days and I have reviewed it.: Yes Section B Chief Complaint: Age-related nuclear cataract, right eye Allergies: Allergies Allergy/AdvReac Type Severity Reaction Status Date / Time No Known Allergies Allergy Verified 12/27/22 13:22 [No Known Allergies*] Plan Diagnosis/Plan: Unchanged I have reviewed the history and physical and performed a pertinent physical examination on my patient. No changes have occurred unless specified. Time Spent With Patient Time: Total time managing care of this patient today ____ minutes.
--- NOTE | 2022-12-31 09:26 | P.CONAN_ITS ---
Documented by User: Kaitlynn Bliss NP 12/31/22 09:26 HPI - Anesthesia Eval Consult details Narrative: 67yo F for Right Cataract Extraction IOL Insertion Medically optimized No previous cataract on record CAD with [place]/Stent 2020 [facility] Active Problems Active Problems: All Active Problems (Updated 12/29/22 @ 13:15 by Nel Love RN) HTN (hypertension) (Acute) COPD (chronic obstructive pulmonary disease) (Acute) Gastroenteritis (Acute) Pulmonary nodules (Acute) Numbness of fingers of both hands (Acute) Ischemic cardiomyopathy (Acute) Essential hypertension (Acute) Atherosclerotic cardiovascular disease (Acute) Paresthesias (Acute) Physical exam (Acute) Hypothyroidism (Acute) Personal history of nicotine dependence (Acute) Coronary artery disease (Acute ~2020) ST elevation (STEMI) myocardial infarction involving left anterior descending coronary artery (Acute ~2020) Past Medical History Medical History (Updated 12/29/22 @ 13:15 by Nel Love RN) Alcohol abuse Cataract COPD (chronic obstructive pulmonary disease) Coronary artery disease (~2020) Essential hypertension History of seizure Hypomagnesemia Hypothyroidism Personal history of nicotine dependence ST elevation (STEMI) myocardial infarction involving left anterior descending coronary artery (~2020) Family History Family History Mother Cancer Father No problems noted. Surgical History Surgical History History of heart artery stent (~2020) History of tonsillectomy Social History Social History (Updated 12/29/22 @ 13:11 by Nel Love RN) Household Members: None Housing: Apartment Are you a primary customer care specialist to a significant other at home: No Do you presently have visiting nurse or other home services: No Alcohol intake: current Alcohol intake frequency: a few times a week Alcohol type: wine Patient Tobacco Use Status: Current everyday Tobacco user Tobacco use type: Cigarette Cigarettes Per Day: 10 e-Cigarette/Vaping Use: Never Used Second Hand Smoke Exposure: No Use of substances other than those prescribed or required for medical reasons: No Have you been hit, kicked, punched, or otherwise hurt by someone within the past year? If so, by whom?: No Are you DNR?: No Advance Directives: No Advance Directives Information Provided: Yes Advance Directives on File: No Recently lost weight without trying: No Nutrition Risks: No Nutritional Risk service: No Current occupational status: employed Current occupational exposures/hazards: No Cognitive needs: No Hearing needs: No Vision needs: Yes Meds Allergies Allergy/AdvReac Type Severity Reaction Status Date / Time No Known Allergies Allergy Verified 12/27/22 13:22 [No Known Allergies*] Home Medications Medication Instructions Recorded Confirmed Last Taken Type cilostazol 50 mg tablet 50 mg PO DAILY 12/29/22 12/29/22 Unknown History Exam Exam Date and Time: December 31, 2022 09 Height,Weight and Vital Signs: Height 5 ft 6 in Weight 62.142 kg Assessment and Plan Assessment Anesthesia Assessment: Chart Reviewed Documented by User: Ladarius De Souza MD 01/03/23 15:53 [facility] Past Medical History Medical History (Updated 12/29/22 @ 13:15 by Nel Love, UZAIR) Alcohol abuse Cataract COPD (chronic obstructive pulmonary disease) Coronary artery disease (~2020) Essential hypertension History of seizure Hypomagnesemia Hypothyroidism Personal history of nicotine dependence ST elevation (STEMI) myocardial infarction involving left anterior descending coronary artery (~2020) Functional capacity: independent ambulation Family History Family History Mother Cancer Father No problems noted. Family history of problems with anesthesia: No Surgical History Surgical History History of heart artery stent (~2020) History of tonsillectomy History of Problems with Anesthesia: No Social History Social History (Updated 12/29/22 @ 13:11 by Nel Love, UZAIR) Household Members: None Housing: Apartment Are you a primary customer care specialist to a significant other at home: No Do you presently have visiting nurse or other home services: No Alcohol intake: current Alcohol intake frequency: a few times a week Alcohol type: wine Patient Tobacco Use Status: Current everyday Tobacco user Tobacco use type: Cigarette Cigarettes Per Day: 10 e-Cigarette/Vaping Use: Never Used Second Hand Smoke Exposure: No Use of substances other than those prescribed or required for medical reasons: No Have you been hit, kicked, punched, or otherwise hurt by someone within the past year? If so, by whom?: No Are you DNR?: No Advance Directives: No Advance Directives Information Provided: Yes Advance Directives on File: No Recently lost weight without trying: No Nutrition Risks: No Nutritional Risk service: No Current occupational status: employed Current occupational exposures/hazards: No Cognitive needs: No Hearing needs: No Vision needs: Yes Meds Allergies Allergy/AdvReac Type Severity Reaction Status Date / Time No Known Allergies Allergy Verified 12/27/22 13:22 [No Known Allergies*] Home Medications Medication Instructions Recorded Confirmed Last Taken Type cilostazol 50 mg tablet 50 mg PO DAILY 12/29/22 12/29/22 Unknown History Exam Airway Mallampati Class: IV Neck ROM: Full Loose/Missing/Broken Teeth: Yes (poor dentition) Assessment and Plan Final Anesthetic Review Family History of Problems with Anesthesia: No History of Problems with Anesthesia: No NPO: Yes ASA Class: III Final Preanesthetic Review: Meds/Allgs Chart Reviewed, Consent Obtained/Reviewed and Anes Risks/Benef Reviewed Patient Risk: Intermediate Procedure Risk: Intermediate Anesthetic Plan Anesthetic Plan: MAC: Disposition: Standard PACU
[2023-01-03 08:41] VITALS: BP 152/76; PULSE 67; RESP 18; TEMP 36.6; O2SAT 96
[2023-01-03] MEDS: Lactated Ringers 500 ML 50 ML IV (08:44)
[2023-01-03] MEDS: Cyclopentolate 1 % Ophth Sol 2 ML DRPBTL 1 DROP EYE-RIGHT ×3 (08:44→08:46)
[2023-01-03] MEDS: Tropicamide 1 % Ophth Sol 3 ML BTL 1 DROP EYE-RIGHT ×3 (08:44→08:46)
[2023-01-03] MEDS: Tetracaine HCl/PF 0.5% Oph Sol 4 ML DROPS 1 DROP EYE-RIGHT (08:44)
[2023-01-03] MEDS: Phenylephrine HCL 2.5% Oph SoL 2 ML BOTTLE 1 DROP EYE-RIGHT ×3 (08:44→08:46)
[2023-01-03] MEDS: Ketorolac Tromethamine 0.5% Op 5 ML DROPS 1 DROP EYE-RIGHT ×3 (08:44→08:46)
[2023-01-03 10:11] VITALS: BP 171/79; PULSE 72; RESP 12; TEMP 36.6; O2SAT 98
--- NOTE | 2023-01-03 10:13 | HO.PNOPHT ---
Ophthalmology Procedure Procedure Date of Service: 01/03/23 Ophthalmology Viscoelastic: Healon Duet Dual Pack Pro Ophthalmology Lenses: TECNIS [id number] (20.5) Procedure Notes: PREOPERATIVE DIAGNOSIS: Decreased visual acuity right eye secondary to cataract POSTOPERATIVE DIAGNOSIS: Same PROCEDURE: Right cataract extraction with intraocular lens insertion SURGEON: Felipe Govea M.D. ANESTHESIA: Topical/MAC ESTIMATED BLOOD LOSS: None COMPLICATIONS: None After obtaining informed consent, the patient was brought to the operating room suite and placed in the supine position. After adequate sedation per anesthesia, topical drops of Tetracaine were given to the right eye. The eye was then prepped and draped in the usual sterile fashion. The operating room microscope was then positioned over the operative eye and a lid speculum placed. A paracentesis was created. Viscoelastic was then instilled into the anterior chamber. A three plane incision was then created temporally, utilizing a 2.85 mm keratome. Capsulotomy forceps were then utilized to create a circular tear capsulotomy. Hydrodissection and hydrodelineation were carried out until adequate mobilization of the nucleus occurred. Phacoemulsification was then utilized to remove the dense central nucleus followed by removal of the cortical material utilizing the automated aspiration irrigation unit. Viscoelastic was instilled into the posterior capsular bag followed by placement of a posterior chamber intraocular lens without difficulty. The residual Viscoelastic was then removed utilizing the automated IA machine. The wound was checked and found to be watertight. The patient tolerated the procedure well and the lid speculum was removed. Intracameral injection of Vigamox 0.1 mL followed by a subtenon injection of Kenalog-40 0.2 mL were administered. The patient will be seen in the a.m.
== END 2023-01-03 10:47 | disposition home or self-care (01) ==
PROVIDERS: PCP Internal Medicine; Visit Provider Ophthalmology
PROC: (CPT 66985; principal; 2023-01-03 10:30)
DX: H25.11 Age-related nuclear cataract, right eye (principal); H52.4 Presbyopia; H18.413 Arcus senilis, bilateral; I25.10 Atherosclerotic heart disease of native coronary artery without angina pectoris; Z95.5 Presence of coronary angioplasty implant and graft; I10 Essential (primary) hypertension; E03.9 Hypothyroidism, unspecified; E06.3 Autoimmune thyroiditis; I25.2 Old myocardial infarction; J44.9 Chronic obstructive pulmonary disease, unspecified; F17.210 Nicotine dependence, cigarettes, uncomplicated; Z79.82 Long term (current) use of aspirin; Z79.899 Other long term (current) drug therapy
CPT/HCPCS: 66984; J3010; J3301; V2632

== ENCOUNTER 2023-01-17 07:38 | Day surgery (SDC) | payer MEDICARE, SELFPAY ==
[2022-12-29 13:17] VITALS: BMI 22.1
--- NOTE | 2023-01-14 07:50 | MHC.SHP ---
Pre-Procedural Eval Section A Date of Service: 01/14/23 The patient is an INPATIENT: No Changes since office visit: No Cold of Flu in the past 2 weeks, No New Medical Problems, No Changes in Medication and No Patient answered all questions The History & Physical has been completed within 30 days and I have reviewed it.: Yes Section B Chief Complaint: Age-related nuclear cataract, left eye Allergies: Allergies Allergy/AdvReac Type Severity Reaction Status Date / Time No Known Allergies Allergy Verified 12/27/22 13:22 [No Known Allergies*] Plan Diagnosis/Plan: Unchanged I have reviewed the history and physical and performed a pertinent physical examination on my patient. No changes have occurred unless specified. Time Spent With Patient Time: Total time managing care of this patient today ____ minutes.
--- NOTE | 2023-01-14 12:23 | P.CONAN_ITS ---
Documented by User: Kaitlynn Bliss NP 01/14/23 12:23 HPI - Anesthesia Eval Consult details Narrative: 67yo F for Left Cataract Extraction IOL Insertion PCP cleared Right eye done 01/03/23 with TIVA: Fent 50 PMFSH Active Problems Active Problems: All Active Problems (Updated 12/29/22 @ 13:15 by Nel Love RN) Physical exam (Acute) Paresthesias (Acute) Atherosclerotic cardiovascular disease (Acute) Essential hypertension (Acute) Ischemic cardiomyopathy (Acute) Numbness of fingers of both hands (Acute) Pulmonary nodules (Acute) Gastroenteritis (Acute) COPD (chronic obstructive pulmonary disease) (Acute) HTN (hypertension) (Acute) Hypothyroidism (Acute) Personal history of nicotine dependence (Acute) Coronary artery disease (Acute ~2020) ST elevation (STEMI) myocardial infarction involving left anterior descending coronary artery (Acute ~2020) Past Medical History Medical History Cataract History of seizure Personal history of nicotine dependence ST elevation (STEMI) myocardial infarction involving left anterior descending coronary artery (~2020) Coronary artery disease (~2020) Hypothyroidism Hypomagnesemia COPD (chronic obstructive pulmonary disease) Essential hypertension Alcohol abuse Family History Family History Mother Cancer Father No problems noted. Family history of problems with anesthesia: No Surgical History Surgical History History of tonsillectomy History of heart artery stent (~2020) History of Problems with Anesthesia: No Social History Social History Household Members: None Housing: Apartment Are you a primary out of school hours care worker to a significant other at home: No Do you presently have visiting nurse or other home services: No Alcohol intake: current Alcohol intake frequency: a few times a week Alcohol type: wine Patient Tobacco Use Status: Current everyday Tobacco user Tobacco use type: Cigarette Cigarettes Per Day: 10 e-Cigarette/Vaping Use: Never Used Second Hand Smoke Exposure: No Use of substances other than those prescribed or required for medical reasons: No Have you been hit, kicked, punched, or otherwise hurt by someone within the past year? If so, by whom?: No Are you DNR?: No Advance Directives: No Advance Directives Information Provided: Yes Advance Directives on File: No Recently lost weight without trying: No Nutrition Risks: No Nutritional Risk service: No Current occupational status: employed Current occupational exposures/hazards: No Cognitive needs: No Hearing needs: No Vision needs: Yes Meds Allergies Allergy/AdvReac Type Severity Reaction Status Date / Time No Known Allergies Allergy Verified 12/27/22 13:22 [No Known Allergies*] Home Medications Medication Instructions Recorded Confirmed Last Taken Type cilostazol 50 mg tablet 50 mg PO DAILY 12/29/22 12/29/22 Unknown History Exam Exam Date and Time: January 14, 2023 1223 Height,Weight and Vital Signs: Height 5 ft 6 in Weight 62.142 kg Assessment and Plan Assessment Anesthesia Assessment: Chart Reviewed Final Anesthetic Review Family History of Problems with Anesthesia: No History of Problems with Anesthesia: No Documented by User: Ling Padilla MD 01/17/23 09:19 [facility] Active Problems Active Problems: All Active Problems (Updated 01/17/23 @ 09:00 by Ling Padilla MD) Physical exam (Acute) Paresthesias (Acute) Atherosclerotic cardiovascular disease (Acute) Essential hypertension (Acute) Ischemic cardiomyopathy (Acute). EF 60-65%. Basal inferior hypokinetic Numbness of fingers of both hands (Acute) Pulmonary nodules (Acute) Gastroenteritis (Acute) COPD (chronic obstructive pulmonary disease) (Acute) HTN (hypertension) (Acute) Hypothyroidism (Acute) Personal history of nicotine dependence (Acute) Coronary artery disease (Acute ~2020) ST elevation (STEMI) myocardial infarction involving left anterior descending coronary artery (Acute ~2020) Denies recent Chest pain. Plavix dc'ed for cardiac stent by cardioloogist. Last dose baby aspirin 01/16/23 Smoker. Last cigarette this morning Past Medical History Medical History Cataract History of seizure Personal history of nicotine dependence ST elevation (STEMI) myocardial infarction involving left anterior descending coronary artery (~2020) Coronary artery disease (~2020) Hypothyroidism Hypomagnesemia COPD (chronic obstructive pulmonary disease) Essential hypertension Alcohol abuse Family History Family History Mother Cancer Father No problems noted. Surgical History Surgical History History of tonsillectomy History of heart artery stent (~2020) Social History Social History Household Members: None Housing: Apartment Are you a primary out of school hours care worker to a significant other at home: No Do you presently have visiting nurse or other home services: No Alcohol intake: current Alcohol intake frequency: a few times a week Alcohol type: wine Patient Tobacco Use Status: Current everyday Tobacco user Tobacco use type: Cigarette Cigarettes Per Day: 10 e-Cigarette/Vaping Use: Never Used Second Hand Smoke Exposure: No Use of substances other than those prescribed or required for medical reasons: No Have you been hit, kicked, punched, or otherwise hurt by someone within the past year? If so, by whom?: No Are you DNR?: No Advance Directives: No Advance Directives Information Provided: Yes Advance Directives on File: No Recently lost weight without trying: No Nutrition Risks: No Nutritional Risk service: No Current occupational status: employed Current occupational exposures/hazards: No Cognitive needs: No Hearing needs: No Vision needs: Yes Meds Allergies Allergy/AdvReac Type Severity Reaction Status Date / Time No Known Allergies Allergy Verified 12/27/22 13:22 [No Known Allergies*] Home Medications Medication Instructions Recorded Confirmed Last Taken Type cilostazol 50 mg tablet 50 mg PO DAILY 12/29/22 12/29/22 Unknown History Exam Height,Weight and Vital Signs: Height 5 ft 6 in Weight 62.142 kg Vital Signs Temp Pulse Resp BP Pulse Ox O2 Del Method 01/17/23 08:50 98.2 F 72 18 139/68 96 Room Air Airway Mallampati Class: III TM Dist: >3cm Neck ROM: Full Loose/Missing/Broken Teeth: Yes (Poor dentition. Some missing. Denies broken but some teeth look mishapen) Heart: RRR Lungs: CTAB. No wheezes Assessment and Plan Assessment Anesthesia Assessment: Anesthesia Plan Discussed Final Anesthetic Review NPO: Yes ASA Class: III Final Preanesthetic Review: No Changes in Pt Med Stat, Meds/Allgs Chart Reviewed, Consent Obtained/Reviewed and Anes Risks/Benef Reviewed Patient Risk: Intermediate Procedure Risk: Low Assessment/Block/Sedation in SS: Assess/Block/Sedation-SS Anesthetic Plan Anesthetic Plan: MAC: Disposition: Standard PACU
--- NOTE | 2023-01-17 08:41 | PC.NURSE ---
patient consents from Dr. Govea office has incorrect spelling of last name- Rosemaryaux on consent, per patient correct spelling is Noiseux. Per Marah Thomas, director transition okay to put single line through incorrect spelling, write out correct spelling and patient to initial next to correct last name.
[2023-01-17 08:50] VITALS: BP 139/68; PULSE 72; RESP 18; TEMP 36.8; O2SAT 96; BMI 21.8
[2023-01-17] MEDS: Lactated Ringers 500 ML 50 ML IV (08:56)
[2023-01-17] MEDS: Tetracaine HCl/PF 0.5% Oph Sol 4 ML DROPS 1 DROP EYE-LEFT (08:57)
[2023-01-17] MEDS: Phenylephrine HCL 2.5% Oph SoL 2 ML BOTTLE 1 DROP EYE-LEFT ×3 (08:58→09:05)
[2023-01-17] MEDS: Ketorolac Tromethamine 0.5% Op 5 ML DROPS 1 DROP EYE-LEFT ×3 (08:58→09:05)
[2023-01-17] MEDS: Cyclopentolate 1 % Ophth Sol 2 ML DRPBTL 1 DROP EYE-LEFT ×3 (08:58→09:05)
[2023-01-17] MEDS: Tropicamide 1 % Ophth Sol 3 ML BTL 1 DROP EYE-LEFT ×3 (08:59→09:05)
--- NOTE | 2023-01-17 09:11 | HO.PNOPHT ---
Ophthalmology Procedure Procedure Date of Service: 01/17/23 Ophthalmology Viscoelastic: Healivan Leet Dual Pack Pro Ophthalmology Lenses: TECANDIE [id number] (21) Procedure Notes: PREOPERATIVE DIAGNOSIS: Decreased visual acuity left eye secondary to cataract POSTOPERATIVE DIAGNOSIS: Same PROCEDURE: Left cataract extraction with intraocular lens insertion SURGEON: Felipe Govea M.D. ANESTHESIA: Topical/MAC ESTIMATED BLOOD LOSS: None COMPLICATIONS: None After obtaining informed consent, the patient was brought to the operation room suite and placed in the supine position. After adequate sedation per anesthesia, topical drops of Tetracaine were given to the left eye. The eye was then prepped and draped in the usual sterile fashion. The operating room microscope was then positioned over the operative eye and a lid speculum placed. A paracentesis was created. Viscoelastic was then instilled into the anterior chamber. A three plane incision was then created temporally, utilizing a 2.85 mm keratome. Capsulotomy forceps were then utilized to create a circular tear capsulotomy. Hydrodissection and hydrodelineation were carried out until adequate mobilization of the nucleus occurred. Phacoemulsification was then utilized to remove the dense central nucleus followed by removal of the cortical material utilizing the automated aspiration irrigation unit. Viscoat elastic was instilled into the posterior capsular bag followed by placement of a posterior chamber intraocular lens without difficulty. The residual Viscoat elastic was then removed utilizing the automated IA machine. The wound was check and found to be watertight. The patient tolerated the procedure well and the lid speculum was removed. Intracameral injection of Vigamox 0.1 mL followed by a subtenon injection of Kenalog-40 0.2 mL were administered. The patient will be seen in the a.m.
[2023-01-17 09:42] VITALS: BP 136/76; PULSE 73; RESP 20; TEMP 36.8; O2SAT 99
== END 2023-01-17 09:45 | disposition home or self-care (01) ==
PROVIDERS: PCP Internal Medicine; Visit Provider Ophthalmology
PROC: (CPT 66985; principal; 2023-01-17 10:00)
DX: H25.12 Age-related nuclear cataract, left eye (principal); H54.7 Unspecified visual loss; E06.3 Autoimmune thyroiditis; I10 Essential (primary) hypertension; J44.9 Chronic obstructive pulmonary disease, unspecified; F17.200 Nicotine dependence, unspecified, uncomplicated; Z79.899 Other long term (current) drug therapy
CPT/HCPCS: 66984; J2250; J3010; J3301; V2632

== ENCOUNTER 2023-01-17 15:26 | Emergency (ER) | payer MEDICARE, SELFPAY ==
--- NOTE | 2023-01-17 16:16 | ED.ANIMALBIT ---
HPI - Animal Bite General Chief Complaint: Eye Problems Stated Complaint: insect bite eye swollen Time Seen by Provider: 01/17/23 16:21 Source: patient Mode of arrival: ambulatory Limitations: no limitations History of Present Illness HPI narrative: 67-year-old female with history of COPD, HTN, ischemic cardiomyopathy, pulmonary nodules, CAD with history of STEMI in 2020 who presents to the ER for evaluation of right eye swelling and facial swelling after she got stung by a wasp yesterday. She states she got stung 3 times on the forehead after a wash got stuck in her hair. She had pain and some drainage from the bite sites on her forehead. She had slow onset of redness and swelling of her entire forehead. She woke up this morning with right eye swelling and some mild swelling on the left eye. Her right eye is almost swollen shut. She denies any vision changes. She denies any swelling of her lips, mouth, tongue. No shortness of breath or wheezing. No history of anaphylaxis in the past. She is not taking any medications for her symptoms MD complaint: other (Wasp bite reaction) Onset (ago): day(s) Animal: other (Wasps) Mechanism: bite Location: face Pain description: other (aching) Associated symptoms: headache Related Data Home Medications Medication Instructions Recorded Confirmed cilostazol 50 mg tablet 50 mg PO DAILY 12/29/22 12/29/22 Previous Rx's Medication Instructions Recorded blood pressure monitor #1 ea 05/19/21 atorvastatin 80 mg tablet 80 mg PO DAILY #90 tabs 07/07/22 blood pressure monitor (Blood #1 ea 07/07/22 Pressure Kit) cholecalciferol (vitamin D3) 50 50 mcg PO DAILY 90 days #90 caps 11/17/22 mcg (2,000 unit) capsule dicyclomine 20 mg tablet 20 mg PO TID 30 days #90 tabs 11/21/22 aspirin 81 mg tablet,delayed 81 mg PO DAILY #90 tabs 12/06/22 release levothyroxine 112 mcg tablet 112 mcg PO DAILY #90 tabs 12/06/22 metoprolol succinate 25 mg 25 mg PO DAILY #90 tabs 12/06/22 tablet,extended release 24 hr albuterol sulfate 90 mcg/actuation 2 puff inhalation Q6H PRN 01/07/23 aerosol inhaler (Ventolin HFA) shortness of breath or wheezing 30 days #8.5 grams diphenhydramine HCl 25 mg capsule 50 mg (2 x 25 mg) PO TID PRN 01/17/23 (Benadryl) allergic reaction #30 caps epinephrine 0.3 mg/0.3 mL 0.3 mg (0.3 mL) IM Q4H PRN 01/17/23 injection, auto-injector (EpiPen) anaphylaxis #2 ea famotidine 40 mg tablet (Pepcid) 40 mg PO DAILY #7 tabs 01/17/23 prednisone 50 mg tablet 50 mg PO DAILY #5 tabs 01/17/23 Allergies Allergy/AdvReac Type Severity Reaction Status Date / Time No Known Allergies Allergy Verified 12/27/22 13:22 [No Known Allergies*] Review of Systems Review of Systems: Yes all other systems are reviewed and are negative [facility] Past Medical History Medical History Cataract History of seizure Personal history of nicotine dependence ST elevation (STEMI) myocardial infarction involving left anterior descending coronary artery (~2020) Coronary artery disease (~2020) Hypothyroidism Hypomagnesemia COPD (chronic obstructive pulmonary disease) Essential hypertension Alcohol abuse Surgical History History of tonsillectomy History of heart artery stent (~2020) Family History Family History Mother Cancer Father No problems noted. Social History Social History Household Members: None Housing: Apartment Are you a primary director of managed care to a significant other at home: No Do you presently have visiting nurse or other home services: No Alcohol intake: current Alcohol intake frequency: a few times a week Alcohol type: wine Patient Tobacco Use Status: Current everyday Tobacco user Tobacco use type: Cigarette Cigarettes Per Day: 10 e-Cigarette/Vaping Use: Never Used Second Hand Smoke Exposure: No Advance Directives: No Advance Directives Information Provided: Yes service: No Current occupational status: employed Current occupational exposures/hazards: No Cognitive needs: No Hearing needs: No Vision needs: Yes Physical Exam ED Vital Signs: Vital Signs - 24 hr 01/17/23 16:17 Temperature 97.8 F Pulse Rate 68 Respiratory Rate 18 Blood Pressure 127/71 Pulse Oximetry 94 Oxygen Delivery Method Room Air BMI result Body Mass Index 21.8 Appearance: Alert. Oriented X3. No acute distress. Head/face: normocephalic. right upper forehead with erythema, swelling and 3 punctate bites w/ clear drainage. significant right sided periorbital swelling and erythema, trace on the left Eyes: Pupils equal, round and reactive to light. EOMI. right upper eyelid with severe swelling. unable to open the eye. no scleral or conjunctival injection. ENT: Pharynx normal. No tonsillar swelling or exudate. No lip or tongue swelling Neck: Normal inspection. Neck supple. no LAD CVS: Normal heart rate and rhythm. Pulses normal. Respiratory: No respiratory distress. Breath sounds normal. Skin: Skin warm and dry. Normal skin color. Normal skin turgor. No rashes. Extremities: No lower extremity edema. No joint swelling. Neuro/psych: Oriented X 3. No motor deficit. No sensory deficit. CN II-XII intact. Normal speech and cognition. Medications Administered Discontinued Medications Generic Name Dose Route Start Last Admin Trade Name Freq PRN Reason Stop Dose Admin Diphenhydramine HCl 50 mg 01/17/23 16:20 01/17/23 16:50 Diphenhydramine Hcl 25 Mg Capsule PO 01/17/23 16:21 50 mg ONCE ONE Administration Famotidine 20 mg 01/17/23 16:20 01/17/23 16:51 Famotidine 20 Mg Tablet PO 01/17/23 16:21 20 mg ONCE ONE Administration Prednisone 60 mg 01/17/23 16:20 01/17/23 16:51 Prednisone 20 Mg Tablet PO 01/17/23 16:21 60 mg ONCE ONE Administration Medical Decision Making Medical Decision Making MDM Narrative: 67-year-old female presents to the ER for evaluation of facial swelling after she was hit by a wasp yesterday. On examination she has significant swelling and erythema the right side of her forehead, right eye, extending to the left eye. She has no oral or airway involvement. Given the delay in response, doubt acute anaphylaxis. No need for epinephrine at this time. Doubt acute infection given history. Treated with prednisone, pepcid and benadryl in the ER. Case d/w Dr. Truong. Comfortable w/ discharge home with ongoing treatment w/ steroids, benadryl and pepcid. strict return precautions given. patient expressed understanding and all questions were answered. Differential Diagnosis Differential Diagnoses: The differential diagnosis associated with the presentation includes allergic reaction, angioedema, anaphylaxis, periorbital cellulitis, preseptal cellulitis Admission/Observation Consideration of admission/observation: Escalation of care including admission/observation considered External Record Review External record reviewed: Prior outpatient labs Prescription Management I considered prescription management with: Antibiotic and Other (benadryl, steroids) Chronic Conditions Patient?s care impacted by: Hypertension Critical Care Time Critical Care Time Critical Care Time: No Discharge Plan Discharge Clinical Impression: Allergic reaction Patient Disposition: Home, Self-Care Instructions: General Allergic Reaction (ED) Additional Instructions: Take the prescribed prednisone as directed, start tomorrow morning as your given the 1st dose today in the ER. Continue Benadryl 50 mg every 8 hours until your symptoms are completely resolved. Use cool compresses or ice to your eye and face to help with pain and swelling. If you develop new or worsening symptoms call 911 or come back to the ER for further evaluation. Prescriptions: New prednisone 50 mg tablet 50 mg PO DAILY Qty: 5 0RF diphenhydramine HCl [Benadryl] 25 mg capsule 50 mg PO TID PRN (Reason: allergic reaction) Qty: 30 0RF famotidine [Pepcid] 40 mg tablet 40 mg PO DAILY Qty: 7 0RF epinephrine [EpiPen] 0.3 mg/0.3 mL auto-injector 0.3 mg IM Q4H PRN (Reason: anaphylaxis) Qty: 2 0RF No Action (DME) blood pressure monitor [Blood Pressure Kit] Kit See Rx Instructions .Route Qty: 1 0RF Rx Instructions: As directed cholecalciferol (vitamin D3) 50 mcg (2,000 unit) capsule 50 mcg PO DAILY 90 Days Qty: 90 0RF dicyclomine 20 mg tablet 20 mg PO TID 30 Days Qty: 90 2RF metoprolol succinate 25 mg tablet extended release 24 hr 25 mg PO DAILY Qty: 90 1RF levothyroxine 112 mcg tablet 112 mcg PO DAILY Qty: 90 1RF aspirin 81 mg tablet,delayed release (DR/EC) 81 mg PO DAILY Qty: 90 1RF albuterol sulfate [Ventolin HFA] 90 mcg/actuation HFA aerosol inhaler 2 puff inhalation Q6H PRN (Reason: shortness of breath or wheezing) 30 Days Qty: 8.5 2RF cilostazol 50 mg tablet 50 mg PO DAILY (DME) blood pressure monitor Kit See Rx Instructions .Route Qty: 1 0RF Rx Instructions: As directed atorvastatin 80 mg tablet 80 mg PO DAILY Qty: 90 3RF Interventions: ED Discharge Assessment Last Done: 01/17/23 17:04 Discharge Date/Time: 01/17/23 17:04
[2023-01-17 16:17] VITALS: BP 127/71; PULSE 68; RESP 18; TEMP 36.6; O2SAT 94; BMI 21.8
[2023-01-17] MEDS: diphenhydrAMINE HCL 25 MG CAPSULE 50 MG PO (16:50)
[2023-01-17] MEDS: predniSONE 20 MG TABLET 60 MG PO (16:51)
[2023-01-17] MEDS: Famotidine 20 MG TABLET PO (16:51)
== END 2023-01-17 17:04 | disposition home or self-care (01) ==
PROVIDERS: Emergency Provider Emergency Medicine; PCP Internal Medicine
DX: L50.0 Allergic urticaria (principal)
CPT/HCPCS: 99282; 99283

== ENCOUNTER 2023-04-05 12:21 | Outpatient (AMB) | payer MEDICARE, SELFPAY ==
[2023-04-05 12:24] VITALS: BP 144/80; BMI 21.3
--- NOTE | 2023-04-05 12:24 | A.OFFPC_ITS ---
Vital Signs 04/05/23 12:24 Height 5 ft 6 in Weight 132 lb BMI 21.3 BP 144/80 H Blood Pressure Location Lt brachial Position Sitting Intake Visit Reasons: 3 month f/u Intake Note: Patient here for a 3 month follow up Foreign Legal Consultant Required: No Accompanied by: Self / Same As Patient Allergies No Known Allergies [No Known Allergies*] Allergy (Verified 04/05/23 12:34) Medication List - Last Reconciled 04/05/23 by Valentina Suazo MD albuterol sulfate 90 mcg/actuation (Ventolin HFA) 2 puffs inhalation Q6H PRN 30 days aspirin 81 mg PO DAILY atorvastatin 80 mg PO DAILY blood pressure monitor As directed blood pressure monitor (Blood Pressure Kit) As directed cholecalciferol (vitamin D3) 50 mcg PO DAILY 90 days cilostazol 50 mg PO ONCE 90 days dicyclomine 20 mg PO TID 30 days epinephrine (EpiPen) 0.3 mg (0.3 mL) IM Q4H PRN famotidine (Pepcid) 40 mg PO DAILY levothyroxine 112 mcg PO DAILY metoprolol succinate ER 25 mg PO DAILY Tobacco use date assessed: 12/27/22 Fall risk assessment: No Falls in past year Last assessed Fall Risk: 04/05/23 Dental Screening Dental Screen Date: 04/05/23 Did you have a dental visit in the last 12 months?: No Did you have a dental problem in the last 6 months where you did not have access to dental care?: No Was dental information given to patient?: Patient has dentist HPI HPI Comments History of Present Illness Details This is a 67-year-old female with hypothyroidism, coronary artery disease, dyslipidemia and COPD that comes today for follow-up on her conditions. Last TSH was normal. On aspirin and statins for secondary prophylaxis for coronary artery disease. Cholesterol slightly elevated and was advised to do low-cholesterol diet and lipid panel will be repeated in neck is physical exam. Use rescue inhaler once a month for her COPD. Denies any chest pain or shortness of breath. PFSH Medical History Cataract History of seizure Personal history of nicotine dependence ST elevation (STEMI) myocardial infarction involving left anterior descending coronary artery (~2020) Coronary artery disease (~2020) Hypothyroidism Hypomagnesemia COPD (chronic obstructive pulmonary disease) Essential hypertension Alcohol abuse Surgical History History of tonsillectomy History of heart artery stent (~2020) Family History Mother Cancer Father No problems noted. Social History Household Members: None Housing: Apartment Are you a primary home care assistant to a significant other at home: No Do you presently have visiting nurse or other home services: No Alcohol intake: current Alcohol intake frequency: a few times a week Alcohol type: wine Patient Tobacco Use Status: Current everyday Tobacco user Tobacco use type: Cigarette Cigarettes Per Day: 10 e-Cigarette/Vaping Use: Never Used Second Hand Smoke Exposure: No service: No Current occupational status: employed Current occupational exposures/hazards: No Cognitive needs: No Hearing needs: No Vision needs: Yes Questionnaire Thrive Questionnaire Date Thrive assessed: 08/04/22 AUDIT C Alcohol Use Questionnaire (AUDIT-C) 1. How often do you have a drink containing alcohol?: 4 or more times a week 2. How many drinks containing alcohol do you have on a typical day when you are drinking?: 1 or 2 3. How often do you have six or more drinks on one occasion?: Never Total Score: 4 ANIL-7 AMB Questionnaire ANIL-7 Date ANIL - 7 assessed: 08/04/22 Source: Developed by Drs. Benji Kelly, Michaela Hills, John Madera and colleagues, with an educational geno from [email or web address]. Review of Systems Const All systems reviewed & are unremarkable except as noted in HPI and below Eyes Reports no additional complaints, Denies change in vision and Denies other visual disturbances Card Denies chest pain at rest, Denies chest pain with activity, Denies edema, Denies irregular heart rhythm, Denies claudication, Denies dyspnea, Denies dyspnea on exertion, Denies orthopnea, Denies paroxysmal nocturnal dyspnea and Denies slow heart rate Resp Denies cough, Denies dyspnea and Denies dyspnea on exertion GI Denies abdominal pain, Denies change in bowel habits, Denies excessive flatus, Denies nausea and Denies vomiting Denies urinary incontinence, Denies urinary hesitancy and Denies urinary urgency Musc Denies abnormal gait, Denies atrophy, Denies deformity and Denies limited range of motion Skin/Breast Denies bleeding lesions, Denies changing lesions and Denies rash Neuro Denies abnormal gait and Denies lack of coordination Physical exam (Primary Care) Vital Signs: Last Vital Signs BP 144/80 H 04/05/23 12:24 BMI result Body Mass Index 21.3 Tobacco/Smoking Status: Tobacco use Status Tobacco use date assessed 12/27/22 04/05/23 12:26 Patient Tobacco Use Status Current everyday Tobacco 04/05/23 12:26 Tobacco use type Cigarette 04/05/23 12:26 e-Cigarette/Vaping Use Never Used 04/05/23 12:26 Thrive Assessment: Date of Thrive Assessment Date Thrive assessed 08/04/22 04/05/23 12:26 Eyes General: appearance normal, both eyes and all related structures Eyelids: Yes eyelids normal Conjunctivae: conjunctivae normal Neck Neck: Yes normal visual inspection and Yes supple Resp Effort & Inspection: normal respiratory effort Auscultation: clear to auscultation bilaterally Cardio Jugular venous distension: no JVD Rate: regular rate Rhythm: regular rhythm Heart sounds: S1 normal heart sound present and S2 normal heart sound present Extrem General: Yes full ROM Office Procedures Flu Questionnaire Does the patient have a severe egg allergy?: No Immunizations flu vacc [id number] 6mos up(PF) 60 mcg(15 mcgx4)/0.5 mL IM syringe Performing Provider: Valentina Suazo MD [facility] Documented (not given) by: ANTOLIN Gray on 04/05/23 12:54 Reason Not Given: Not Given Assessment and Plan Assessment & Plan (1) COPD (chronic obstructive pulmonary disease): Code(s): J44.9 - Chronic obstructive pulmonary disease, unspecified Qualifiers: COPD type: chronic bronchitis Chronic bronchitis type: unspecified Qualified Code(s): J42 - Unspecified chronic bronchitis Plan: Use rescue inhaler as needed (2) Hypothyroidism: Code(s): E03.9 - Hypothyroidism, unspecified Qualifiers: Hypothyroidism type: unspecified Qualified Code(s): E03.9 - Hypothyroidism, unspecified Plan: Continue levothyroxine. (3) Coronary artery disease: Onset Date: ~2020 Comment: (Hx STEMI - s/p [facility] to LAD - 04/2021) Code(s): I25.10 - Atherosclerotic heart disease of [place] coronary artery without angina pectoris Qualifiers: Associated angina: without angina Coronary Disease-Associated Artery/Lesion type: [place] artery [place] vs. transplanted heart: [place] heart Qualified Code(s): I25.10 - Atherosclerotic heart disease of [place] coronary artery without angina pectoris Plan: Continue aspirin and lipids a secondary prophylaxis. Continue metoprolol to reduce mortality. (4) Dyslipidemia: Code(s): E78.5 - Hyperlipidemia, unspecified Plan: Continue statins. LDL goal is less than 70. Orders: Orders Vitamin D 25-OH Total 4 Months E55.9 - Vitamin D deficiency, unspecified Thyroid Stimulating Hormone 4 Months E03.9 - Hypothyroidism, unspecified Influenza [id number] Immunization Today Z23 - Encounter for immunization Lipid Panel 4 Months E78.5 - Hyperlipidemia, unspecified Comprehensive [place]. Panel Fast 4 Months I10 - Essential (primary) hypertension Medications: Changed From cilostazol 50 mg PO ONCE 90 days 90 tabs 1RF To cilostazol 100 mg (2 x 50 mg) PO ONCE 180 tabs 1RF 90 days Discontinued famotidine (Pepcid) Discontinued Reason: Patient Completed Course 40 mg PO DAILY 7 tabs 0RF Coding Level of Care Code Est Pt Level 4 (57896) Diagnoses Chronic bronchitis, unspecified chronic bronchitis type J42 COPD type: chronic bronchitis Chronic bronchitis type: unspecified Hypothyroidism, unspecified type E03.9 Hypothyroidism type: unspecified Coronary artery disease involving [place] coronary artery of [place] heart without angina pectoris I25.10 Associated angina: without angina Coronary Disease-Associated Artery/Lesion type: [place] artery [place] vs. transplanted heart: [place] heart Dyslipidemia E78.5 Time Spent (min) 23
== END 2023-04-05 12:51 | disposition home or self-care (01) ==
PROVIDERS: PCP Internal Medicine; Visit Provider Internal Medicine
DX: J42 Unspecified chronic bronchitis (principal); E03.9 Hypothyroidism, unspecified; I25.10 Atherosclerotic heart disease of native coronary artery without angina pectoris; E78.5 Hyperlipidemia, unspecified
CPT/HCPCS: 99214

== ENCOUNTER 2023-08-02 11:19 | Outpatient (REF) | payer MEDICARE, SELFPAY ==
[2023-08-02 13:21] LABS: Alanine Aminotransferase 16 U/L (0-31); Albumin Level 4.2 g/dL (3.5-5.0); Alkaline Phosphatase 73 U/L (39-117); Anion Gap 16 (12-20); Aspartate Amino Transferase 18 U/L (5-31); Bilirubin Total 0.5 mg/dL (0.0-1.0); Blood Urea Nitrogen 10 mg/dL (9-16); Calcium 9.9 mg/dL (8.4-10.2); Carbon Dioxide 26 mmol/L (22-29); Chloride 102 mmol/L (96-108); Cholesterol 175 mg/dL (<200); Estimated Glomerular Filt Rate > 60; Glucose Fasting 103 mg/dL (60-99); HDL Cholesterol 60 mg/dL (>40); LDL Cholesterol Calculated 89 mg/dL (<100); Potassium 3.9 mmol/L (3.3-5.1); Sodium 140 mmol/L (135-145); Thyroid Stimulating Hormone 0.84 uIU/mL (0.32-4.0); Total Protein 6.8 g/dL (6.5-8.0); Triglycerides 130 mg/dL (<150); Vitamin D 25-OH Total 57.9 ng/mL (>30)
[2023-08-02 13:34] LABS: Folate 5.7 ng/mL (> or = 4.0); Vitamin B12 306 pg/mL (200-900)
== END 2023-08-02 11:20 | disposition home or self-care (01) ==
LOC: HO.LAB 11:19
PROVIDERS: PCP Internal Medicine; Visit Provider Internal Medicine
DX: E53.8 Deficiency of other specified B group vitamins (principal); E55.9 Vitamin D deficiency, unspecified; E03.9 Hypothyroidism, unspecified; E78.5 Hyperlipidemia, unspecified; I10 Essential (primary) hypertension
CPT/HCPCS: 36415; 80053; 80061; 82306; 82607; 82746; 84443

== ENCOUNTER 2023-08-09 13:22 | Outpatient (AMB) | payer MEDICARE, SELFPAY ==
[2023-08-09 13:38] VITALS: BP 134/66; BMI 21.3
--- NOTE | 2023-08-09 13:38 | A.OFFPC_ITS ---
Vital Signs 08/09/23 13:38 Height 5 ft 6 in Weight 132 lb BMI 21.3 BP 134/66 Blood Pressure Location Lt brachial Position Sitting Intake Visit Reasons: Annual Exam Intake Note: Patient here for a physical exam, c/o left ear ringing Clinical Pharmacy Manager Required: No Accompanied by: Self / Same As Patient Allergies No Known Allergies [No Known Allergies*] Allergy (Verified 08/09/23 13:58) Medication List - Last Reconciled 08/09/23 by Valentina Suazo MD albuterol sulfate 90 mcg/actuation (Ventolin HFA) 2 puffs inhalation Q6H PRN 30 days aspirin 81 mg PO DAILY atorvastatin 80 mg PO DAILY blood pressure monitor As directed blood pressure monitor (Blood Pressure Kit) As directed cholecalciferol (vitamin D3) 50 mcg PO DAILY 90 days cilostazol 100 mg (2 x 50 mg) PO ONCE 90 days dicyclomine 20 mg PO TID 30 days epinephrine (EpiPen) 0.3 mg (0.3 mL) IM Q4H PRN levothyroxine 112 mcg PO DAILY metoprolol succinate ER 25 mg PO DAILY Tobacco use date assessed: 08/09/23 Fall risk assessment: No Falls in past year Last assessed Fall Risk: 08/09/23 Dental Screening Dental Screen Date: 08/09/23 Did you have a dental visit in the last 12 months?: No Did you have a dental problem in the last 6 months where you did not have access to dental care?: No Was dental information given to patient?: Patient declined HPI HPI Comments History of Present Illness Details This is a 67-year-old female with history of STEMI in 2020 status post drug-eluting stent that comes for her physical exam. She declines mammogram and colonoscopy. Willing to do bone densitometry. Labs were discussed. I will decrease vitamin-D supplement. Patient denies any chest pain or shortness of breath. Was advised to quit smoking. On aspirin for secondary prophylaxis of STEMI. [facility] Medical History Cataract History of seizure Personal history of nicotine dependence ST elevation (STEMI) myocardial infarction involving left anterior descending coronary artery (~2020) Coronary artery disease (~2020) Hypothyroidism Hypomagnesemia COPD (chronic obstructive pulmonary disease) Essential hypertension Alcohol abuse Surgical History History of tonsillectomy History of heart artery stent (~2020) Family History Mother Cancer Father No problems noted. Social History Household Members: None Housing: Apartment Are you a primary school childcare attendant to a significant other at home: No Do you presently have visiting nurse or other home services: No Alcohol intake: current Alcohol intake frequency: a few times a week Alcohol type: wine Patient Tobacco Use Status: Current everyday Tobacco user Tobacco use type: Cigarette Cigarettes Per Day: 6 e-Cigarette/Vaping Use: Never Used Second Hand Smoke Exposure: No service: No Current occupational status: employed Current occupational exposures/hazards: No Cognitive needs: No Hearing needs: No Vision needs: Yes Questionnaire PHQ-9 Over the last 2 weeks, how often have you been bothered by any of the following problems? 1. Little interest or pleasure in doing things: not at all 2. Feeling down, depressed, or hopeless: not at all 3. Trouble falling or staying asleep, or sleeping too much: not at all 4. Feeling tired or having little energy: not at all 5. Poor appetite or overeating: not at all 6. Feeling bad about yourself - or that you are a failure or have let yourself or your family down: not at all 7. Trouble concentrating on things, such as reading the newspaper or watching television: not at all 8. Moving or speaking so slowly that other people could have noticed. Or the o pposite - being so fidgety or restless that you have been moving around a lot more than usual: not at all 9. Thoughts that you would be better off or of hurting yourself in some way: not at all Total score: 0 Depression Screening Interpretation: Negative Depression Screening Done: Yes 36220 - PHQ-9 Billing: Yes Source: Developed by Drs. Benji Kelly, Michaela Hills, John Madera and colleagues, with an educational geno from [employer]. Thrive Questionnaire Date Thrive assessed: 08/09/23 I am a: Patient What is your living situation today?: I have a steady place to live Within the past 12 months, did the food you bought not last and you didn't have the money to get more?: Never true Within the past 12 months, did you worry whether your food would run out before you got money to buy more?: Never true Do you have trouble paying for medicines?: No Do you have trouble getting transportation to medical appointments?: No Do you have trouble paying your heating and electricity bill?: No Do you have trouble taking care of your child, family member or friend?: No Do you have trouble with day-to-day activities such as bathing, preparing meals, shopping, managing finances, etc.?: No Are you currently unemployed and looking for a job?: No Are you interested in more education?: No Please select the resources that you would like help with: None Currently or been in a relationship where the following occur: no concerns reported THRIVE Score: 0 AUDIT C Alcohol Use Questionnaire (AUDIT-C) 1. How often do you have a drink containing alcohol?: 4 or more times a week 2. How many drinks containing alcohol do you have on a typical day when you are drinking?: 1 or 2 3. How often do you have six or more drinks on one occasion?: Never Total Score: 4 ANIL-7 AMB Questionnaire ANIL-7 Date ANIL - 7 assessed: 08/09/23 Feeling nervous, anxious, or on edge: 0 = Not at all Not being able to stop or control worryin = Not at all Worrying too much about different things: 0 = Not at all Trouble relaxin = Not at all Being so restless that it is hard to sit still: 0 = Not at all Becoming easily annoyed or irritable: 0 = Not at all Feeling afraid as if something awful might happen: 0 = Not at all Total ANIL-7 score (0-4 normal; 5-9 mild; 10-14 moderate; 15-21 severe): 0 Source: Developed by Drs. Benji Kelly, Michaela Hills, John Madera and colleagues, with an educational geno from [employer]. ANIL-7 Assessment Billing ANIL-7 Assessment Tool: ANIL-7 Assessment 62721 Review of Systems Const All systems reviewed & are unremarkable except as noted in HPI and below Eyes Reports no additional complaints, Denies change in vision and Denies other visual disturbances Card Denies chest pain at rest, Denies chest pain with activity, Denies edema, Denies irregular heart rhythm, Denies claudication, Denies dyspnea, Denies dyspnea on exertion, Denies orthopnea, Denies paroxysmal nocturnal dyspnea and Denies slow heart rate Resp Denies cough, Denies dyspnea and Denies dyspnea on exertion Physical exam (Primary Care) Vital Signs: Last Vital Signs BP 134/66 08/09/23 13:38 BMI result Body Mass Index 21.3 Tobacco/Smoking Status: Tobacco use Status Tobacco use date assessed 08/09/23 08/09/23 13:46 Patient Tobacco Use Status Current everyday Tobacco 08/09/23 13:46 Tobacco use type Cigarette 08/09/23 13:46 e-Cigarette/Vaping Use Never Used 08/09/23 13:46 PHQ-9: PHQ-9 Score PHQ-9: Total score 0 08/09/23 13:46 Depression Screening Interpretation: Negative Thrive Assessment: Date of Thrive Assessment Date Thrive assessed 08/09/23 08/09/23 13:46 Currently or been in a relationship where the following occur: no concerns reported Const Orientation/consciousness: patient oriented x3 HENMT Head: Yes normal to inspection, Yes normocephalic and Yes atraumatic Ears: external ears normal Eyes General: appearance normal, both eyes and all related structures Eyelids: Yes eyelids normal Conjunctivae: conjunctivae normal Neck Neck: Yes normal visual inspection and Yes supple Resp Effort & Inspection: normal respiratory effort Auscultation: clear to auscultation bilaterally Cardio Jugular venous distension: no JVD Rate: regular rate Rhythm: regular rhythm Heart sounds: S1 normal heart sound present and S2 normal heart sound present GI Inspection: Yes normal to inspection Palpation (GI): Soft to palpation and nontender Auscultation: normal bowel sounds Skin General skin exam: no rashes or lesions noted Neuro General: patient oriented x3 and no focal motor deficits Extrem General: Yes full ROM Psych Appearance: grossly normal Assessment and Plan Assessment & Plan (1) Physical exam: Code(s): Z00.00 - Encounter for general adult medical examination without abnormal findings Plan: Repeat in a year. (2) ST elevation (STEMI) myocardial infarction involving left anterior descending coronary artery: Onset Date: ~2020 Code(s): I21.02 - ST elevation (STEMI) myocardial infarction involving left anterior descending coronary artery Plan: Continue aspirin. Orders: Orders XR DEXA axial skeleton Today N95.9 - Unspecified menopausal and perimenopausal disorder Thyroid Stimulating Hormone 6 Months E03.9 - Hypothyroidism, unspecified Referrals Cardiology Referral I25.10 - Atherosclerotic heart disease of [place] coronary artery without angina pectoris, I25.5 - Ischemic cardiomyopathy Medications: New cholecalciferol (vitamin D3) 25 mcg PO DAILY 90 days 90 caps 1RF Discontinued cholecalciferol (vitamin D3) Discontinued Reason: Patient Completed Course 50 mcg PO DAILY 90 days 90 caps 0RF Coding Level of Care Code Est Pt Prev Care >65y(87746) Diagnoses Physical exam Z00.00 ST elevation (STEMI) myocardial infarction involving left anterior descending coronary artery I21.02 Additional Codes ANIL-7 Assessment Billing - ANIL-7 Assessment Tool: ANIL-7 Assessment 29845 ([id number]) Time Spent (min) 32
== END 2023-08-09 14:12 | disposition home or self-care (01) ==
PROVIDERS: PCP Internal Medicine; Visit Provider Internal Medicine
DX: Z00.00 Encounter for general adult medical examination without abnormal findings (principal); I25.2 Old myocardial infarction; Z95.5 Presence of coronary angioplasty implant and graft; F17.210 Nicotine dependence, cigarettes, uncomplicated
CPT/HCPCS: 99397

== ENCOUNTER 2023-09-06 13:08 | Outpatient (REF) | payer MEDICARE, SELFPAY ==
--- NOTE | ~2023-09-06 | MM_ITS ---
EXAMINATION: BONE DENSITOMETRY CLINICAL INDICATION: Menopause. COMPARISON: This is the patient's baseline examination. TECHNIQUE: Using a [employer] DXA System (software version: 13.1) manufactured by [employer], dual-energy x-ray absorptiometry was performed of the lumbar spine and left hip. The images are of good technical quality. Summary results are attached. FINDINGS: LEFT FEMUR, NECK: BMD 0.827 g/cm2, Z-score 0.2, T-score -1.5, osteopenia. LEFT FEMUR, TOTAL: BMD 0.838 g/cm2, Z-score 0.1, T-score -1.4, osteopenia. AP SPINE L1-L4: BMD 1.195 g/cm2, Z-score 1.9, T-score 0.1, normal. IDENTIFIED RISK FACTORS: Menopause, low calcium intake, tobacco use (current smoker). HISTORY OF FRACTURE: None listed. MEDICATIONS: Vitamin D. MM/XR DEXA axial skeleton IMPRESSION: 1. DIAGNOSIS: Osteopenia based on the lowest T-score value of -1.5 in the femoral neck applying World Health Organization criteria. 2. 10-YEAR FRACTURE RISK PREDICTION, FRAX: Major osteoporotic fracture (clinical spine, forearm, hip or shoulder) 9.1%. Hip fracture 2.0%. 3. Treatment Recommendations: NOF guidelines recommend consideration for treatment in postmenopausal women and men age 50 and older presenting with the following: -A hip or vertebral (clinical or morphometric) fracture. -T-score less than or equal to -2.5 at the femoral neck or spine after appropriate evaluation to exclude secondary causes. -Low bone mass at the hip or spine and a 10-year fracture probability by FRAX of greater than or equal to 3% for hip fracture or greater than or equal to 20% for major osteoporotic fracture based on the [place] adapted WHO algorithm. 4. Other Recommendations: All treatment decisions require clinical judgment and consideration of individual patient factors, including patient preferences, comorbidities, previous drug use, risk factors not captured in the FRAX model (e.g. frailty, falls, vitamin D deficiency, increased bone turnover, interval significant decline in bone density) and possible under or overestimation of fracture risk by FRAX. Additional medical evaluation for secondary cause of low bone mineral density may be appropriate. FUTURE SCAN RECOMMENDATION: People with diagnosed cases of osteoporosis or at high risk for fracture should have regular bone mineral density tests. For patients eligible for Medicare, routine testing is allowed once every 2 years. The testing frequency can be increased to one year for patients who have rapidly progressing disease, those who are receiving or discontinuing medical therapy to restore bone mass, or have additional risk factors.
== END 2023-09-06 13:09 | disposition home or self-care (01) ==
LOC: HO.MAMMO 13:08
PROVIDERS: PCP Internal Medicine; Visit Provider Internal Medicine
DX: Z13.820 Encounter for screening for osteoporosis (principal); Z78.0 Asymptomatic menopausal state
CPT/HCPCS: 77080

== ENCOUNTER 2023-09-23 23:07 | Emergency (ER) | payer MEDICARE, SELFPAY ==
--- NOTE | 2023-09-23 | ECG_ITS ---
Test Reason : chest pain Blood Pressure : / mmHG Vent. Rate : 075 BPM Atrial Rate : 075 BPM P-R Int : 170 ms QRS Dur : 078 ms QT Int : 372 ms P-R-T Axes : 064 083 078 degrees QTc Int : 415 ms Normal sinus rhythm ST elevation, consider early repolarization Borderline ECG When compared with ECG of 02-JUN-2021 21:50, T wave inversion no longer evident in Anterior leads Referred By: Generic ED Physician Electronically Signed By:YONI GIFFORD MD
--- NOTE | ~2023-09-23 | XR_ITS ---
EXAMINATION: XR CHEST CLINICAL INFORMATION: Chest pain. COMPARISON: 06/02/2021. TECHNIQUE: Frontal view of the chest was obtained. FINDINGS: No significant abnormality is noted involving the heart, lungs, mediastinum, bony thorax or soft tissues. XR/XR chest 1V IMPRESSION: Unremarkable examination.
[2023-09-23 23:14] VITALS: BP 124/78; BP 137/60; PULSE 77; PULSE 80; RESP 20; TEMP 36.9; O2SAT 95; O2SAT 96; BMI 22.7
[2023-09-23 23:22] VITALS: BP 137/68; PULSE 77; RESP 20; TEMP 36.9; O2SAT 93
--- NOTE | 2023-09-23 23:29 | ED.CHESTPAIN ---
HPI - Chest Pain General Chief Complaint: Chest Pain Stated Complaint: Chest pain/pressure, hx of WI, ASA given Time Seen by Provider: 09/23/23 23:18 Source: patient and EMS Mode of arrival: EMS Limitations: no limitations History of Present Illness HPI narrative: Patient comes to the emergency room complaining of chest pain that started approximately 2 1-1/2 hours ago. Patient states that it was not real chest pain, EMS felt like indigestion, GERD sensation which she has had in the past. Patient also takes medications for GERD. However, patient states that in 2020 she had an WI and she had the same symptoms. Patient called the ambulance, they gave her a full dose of aspirin and the symptoms completely resolved. Patient states that she did not want to come to the hospital but the ambulance crew convinced her to come to get checked out. At this time, patient has no chest pain, no shortness of breath. Related Data Previous Rx's ?Medication ?Instructions ?Recorded blood pressure monitor #1 ea 05/19/21 blood pressure monitor (Blood #1 ea 07/07/22 Pressure Kit) epinephrine 0.3 mg/0.3 mL 0.3 mg (0.3 mL) IM Q4H PRN 01/17/23 injection, auto-injector (EpiPen) anaphylaxis #2 ea cilostazol 50 mg tablet 100 mg (2 x 50 mg) PO ONCE 90 days 04/05/23 #180 tabs albuterol sulfate 90 mcg/actuation 2 puff inhalation Q6H PRN 05/07/23 aerosol inhaler (Ventolin HFA) shortness of breath or wheezing 30 days #8.5 grams aspirin 81 mg tablet,delayed 81 mg PO DAILY #90 tabs 06/13/23 release atorvastatin 80 mg tablet 80 mg PO DAILY #90 tabs 06/13/23 levothyroxine 112 mcg tablet 112 mcg PO DAILY #90 tabs 06/13/23 metoprolol succinate 25 mg 25 mg PO DAILY #90 tabs 06/13/23 tablet,extended release 24 hr dicyclomine 20 mg tablet 20 mg PO TID 30 days #90 tabs 07/24/23 cholecalciferol (vitamin D3) 25 25 mcg PO DAILY 90 days #90 caps 08/09/23 mcg (1,000 unit) capsule calcium carbonate 500 mg-vitamin 1 tab PO BID 90 days #180 tabs 09/11/23 D3 10 mcg (400 unit) tablet (Oyster Shell Calcium-Vitamin D3) cefuroxime axetil 250 mg tablet 250 mg PO BID #14 tabs 09/24/23 Allergies Allergy/AdvReac Type Severity Reaction Status Date / Time No Known Allergies Allergy Verified 09/23/23 23:18 [No Known Allergies*] Review of Systems Review of Systems: Constitutional : No Weight loss, No Fever, No Chills, No Night Sweats, No Fatigue, No Malaise ENT/Mouth : No Hearing loss, No Ear Pain, No Nasal Congestion, No Sinus Pain, No Hoarseness, No sore throat, No Rhinorrhea, No Swallowing Difficulty Eyes: No Eye Pain, No Swelling, No Redness, No Foreign Body, No Discharge, No Vision Changes Cardiovascular : Complaining of chest pain/GERD sensation which resolved after taking full-dose aspirin, No SOB, No Dyspnea on Exertion, No Orthopnea, No Edema, No Palpitations Respiratory : No Cough, No Sputum, No Wheezing, No Smoke Exposure, No Dyspnea Gastrointestinal : No Nausea, No Vomiting, No Diarrhea, No Constipation, No abdominal Pain, No Hematochezia, No Melena Genitourinary : no irregular bleeding, No Dysuria, No Urinary Frequency, No Hematuria, No Urinary Incontinence, No Urgency, No Flank Pain, No Urinary Flow Changes, No Hesitancy Musculoskeletal : No joint pain, No Myalgias, No Joint Swelling Skin : No Skin Lesions, No rash Neuro : No Weakness, No Numbness, No Paresthesias, No Loss of Consciousness, No Dizziness, No Headache Psych : No Anxiety/Panic, No Depression, No SI/HI/AH/VH, No Social Issues, Heme/Lymph: No Bruising, No Bleeding,No Lymphadenopathy Endocrine : No Polyuria, No Polydipsia, No Temperature Intolerance [facility] Past Medical History Medical History Cataract History of seizure Personal history of nicotine dependence ST elevation (STEMI) myocardial infarction involving left anterior descending coronary artery (~2020) Coronary artery disease (~2020) Hypothyroidism Hypomagnesemia COPD (chronic obstructive pulmonary disease) Essential hypertension Alcohol abuse Surgical History History of tonsillectomy History of heart artery stent (~2020) Family History Family History Mother Cancer Father No problems noted. Social History Social History Household Members: None Housing: Apartment Are you a primary clinical care leader to a significant other at home: No Do you presently have visiting nurse or other home services: No Alcohol intake: current Alcohol intake frequency: 0-2 drinks per day Alcohol type: wine Patient Tobacco Use Status: Current everyday Tobacco user Tobacco use type: Cigarette Cigarettes Per Day: 6 Smoked in Last 30 Days: Yes e-Cigarette/Vaping Use: Never Used Second Hand Smoke Exposure: No Use of substances other than those prescribed or required for medical reasons: No Advance Directives: Yes Advance Directives on File: Yes Advance Directives Date on File: 01/27/21 service: No Current occupational status: employed Current occupational exposures/hazards: No Cognitive needs: No Hearing needs: No Vision needs: Yes Physical Exam Vital Signs: Vital Signs: Last Vital Signs Temp 98.0 F 09/24/23 01:22 Pulse 76 09/24/23 02:38 Resp 17 09/24/23 02:38 BP 144/78 H 09/24/23 02:38 Pulse Ox 94 09/24/23 02:38 O2 Del Method Room Air 09/24/23 02:38 BMI result Body Mass Index 22.7 Const: Other: Appearance: Alert. Oriented X3. No acute distress. Well-appearing Eyes: Pupils equal, round and reactive to light. ENT: Pharynx normal. Neck: Normal inspection. Neck supple. No lymph nodes noted. No crepitus CVS: Normal heart rate and rhythm. Pulses normal. Normal S1 and S2 Respiratory: No respiratory distress. Breath sounds normal. No Wheezing. No rales Abdomen: Soft and nontender. No rigidity. No distention. Skin: Skin warm and dry. Normal skin color. Normal skin turgor. Extremities: No lower extremity edema. No Lacerations. No Rash Neuro: Oriented X 3. No motor deficit. No sensory deficit. Moving all extremities. No slurred speech. CN 2 through 12 grossly intact Psych: calm, cooperative, normal affect Course Course Course Narrative: -patient is asymptomatic, vitals are normal -all of patient's labs pending -discussed with the patient that given her history, we will repeat a troponin level 3 hours after the 1st round of lab work. Patient agreeable with plan. Medical Decision Making Medical Decision Making [facility] Narrative: My interpretation of EKG: Normal sinus rhythm, heart rate 75, no ST segment depression or elevation, no T-wave inversion, QTC 415 -my interpretation of labs: Hematology at baseline, chemistry within normal limits, BNP negative, troponin x2 negative. Urinalysis positive for UTI. From previous microbiology reports, patient grew Raoultella planticola, sensitive to ceftriaxone levofloxacin nitrofurantoin and Bactrim -patient was given the 1st dose of antibiotics in the emergency room, cefuroxime Differential Diagnosis Differential Diagnoses: The differential diagnosis associated with the presentation includes (GERD, ACS, NSTEMI, UTI) Admission/Observation Consideration of admission/observation: Escalation of care including admission/observation considered (Given patient's past medical history, admission/observation considered.) Lab Data [facility] Lab Attestation statement: I reviewed the patient's lab results. 09/23/23 23:33 09/23/23 23:33 Labs: Lab Results 09/23/23 09/24/23 Range/Units 23:33 01:28 WBC 6.7 (4.8-10.8) X10*3/uL RBC 3.68 L (4.20-5.50) X10*6/uL Hgb 13.1 (12.0-16.0) g/dl Hct 38.2 (37.0-47.0) % MCV 103.8 H (80.0-98.0) fL MCH 35.6 H (27.0-33.0) pg MCHC 34.3 (31.0-35.0) g/dl RDW 13.2 (11.0-16.0) % Plt Count 291 (160-400) X10*3/uL MPV 8.9 L (9.4-12.3) fL Immature Gran % (Auto) 0.1 (0.0-0.4) % Neut % (Auto) 50.4 (45-73) % Lymph % (Auto) 37.7 (20-40) % Mineral % (Auto) 6.4 (2-11) % Eos % (Auto) 4.2 H (0-4) % Baso % (Auto) 1.2 (0-2) % Lymph # (Auto) 2.5 (1.2-4.9) X10*3/uL Mineral # (Auto) 0.4 (0.1-1.2) X10*3/uL Eos # (Auto) 0.3 (0.0-0.4) X10*3/uL Baso # (Auto) 0.1 (0.0-0.2) X10*3/uL Abs Immat Gran (auto) 0.01 (0.00-0.03) X10*3/uL Absolute Neuts (auto) 3.4 (2.0-8.3) x10*3/uL Absolute Nucleated RBC 0.000 (0.0-0.012) X10*3/uL Nucleated RBC % (auto) 0.0 (0.0-0.2) /100WBC PT 10.6 L (11.1-13.3) SEC INR 0.9 (0.9-1.1) Sodium 142 (135-145) mmol/L Potassium 4.1 (3.3-5.1) mmol/L Chloride 109 H (96-108) mmol/L Carbon Dioxide 18 L (22-29) mmol/L Anion Gap 19 (12-20) BUN 9 (9-16) mg/dL Creatinine 0.65 (0.5-1.4) mg/dL Estim Creat Clear Calc 77.5 Estimated GFR > 60 Random Glucose 95 (60-115) mg/dL Calcium 8.7 D (8.4-10.2) mg/dL Magnesium 1.9 (1.6-2.6) mg/dL Total Bilirubin 0.1 (0.0-1.0) mg/dL Direct Bilirubin < 0.2 (0.0-0.5) mg/dL AST 18 (5-31) U/L ALT 16 (0-31) U/L Alkaline Phosphatase 77 (39-117) U/L Troponin I High Sens < 2.7 < 2.7 (<3.5-17.0) ng/L B-Natriuretic Peptide 20 (<100) pg/mL Total Protein 6.3 L (6.5-8.0) g/dL Albumin 3.6 (3.5-5.0) g/dL Urine Color Yellow Urine Appearance Cloudy Urine pH 5.0 (5.0-9.0) Ur Specific [place] 1.020 (1.005-1.025) Urine Protein Negative (Neg-Trace) mg/dL Urine Glucose (UA) Negative (Negative) mg/dL Urine Ketones Negative (Negative) mg/dL Urine Blood Negative (Negative) Urine Nitrite Positive H (Negative) Ur Leukocyte Esterase Moderate (2+) H (Negative) Urine RBC 0-2 (0-2) /HPF Urine WBC >50 H (0-5) /HPF Ur Squamous Epith Cells 11-20 (0-2) /HPF Urine Bacteria 2+ (None Seen) Hyaline Casts 0-2 (0-2) /LPF Urine Opiates Screen Not Detected (Not Detect) Ur Buprenorphine Scrn Not Detected (Not Detect) ng/mL Ur Oxycodone Screen Not Detected (Not Detect) ng/mL Urine Methadone Screen Not Detected (Not Detect) ng/mL Urine Fentanyl Screen Not Detected (Not Detect) Ur Barbiturates Screen Not Detected (Not Detect) Ur Phencyclidine Scrn Not Detected (Not Detect) Ur Amphetamines Screen Not Detected (Not Detect) U Benzodiazepines Scrn Not Detected (Not Detect) Urine Cocaine Screen Not Detected (Not Detect) U Marijuana (THC) Screen Not Detected (Not Detect) Ethyl Alcohol 64 mg/dL Independent Interpretation I performed an independent interpretation of an: EKG and Plain X-Ray Radiology Impression Discussion of test interpretation with radiology: I have reviewed the radiologist's reading. Radiologist Impression: FINDINGS: No significant abnormality is noted involving the heart, lungs, mediastinum, bony thorax or soft tissues. XR/XR chest 1V IMPRESSION: Unremarkable examination. Critical Care Time Critical Care Time Critical Care Time: Yes Total Critical Care Time: 45 Attestation: I have personally provided critical care time. Time includes review of lab data, radiology results, discussion with consultants, and monitoring for potential decompensation. Intervention performed as documented. Discharge Plan Discharge Clinical Impression: Atypical chest pain, UTI (urinary tract infection) Patient Disposition: Home, Self-Care Instructions: Chest Pain (ED), Urinary Tract Infection in Women (DC) Additional Instructions: Please follow-up with your primary care physician tomorrow. If you have any worsening or new symptoms, please return to the emergency room or call 911 Prescriptions: New cefuroxime axetil 250 mg tablet 250 mg PO BID Qty: 14 0RF No Action (DME) blood pressure monitor [Blood Pressure Kit] Kit See Rx Instructions .Route Qty: 1 0RF Rx Instructions: As directed albuterol sulfate [Ventolin HFA] 90 mcg/actuation HFA aerosol inhaler 2 puff inhalation Q6H PRN (Reason: shortness of breath or wheezing) 30 Days Qty: 8.5 2RF metoprolol succinate 25 mg tablet extended release 24 hr 25 mg PO DAILY Qty: 90 1RF levothyroxine 112 mcg tablet 112 mcg PO DAILY Qty: 90 1RF aspirin 81 mg tablet,delayed release (DR/EC) 81 mg PO DAILY Qty: 90 1RF atorvastatin 80 mg tablet 80 mg PO DAILY Qty: 90 3RF dicyclomine 20 mg tablet 20 mg PO TID 30 Days Qty: 90 2RF calcium carbonate-vitamin D3 [Oyster Shell Calcium-Vit D3] 500 mg-10 mcg (400 unit) tablet 1 tab PO BID 90 Days Qty: 180 1RF epinephrine [EpiPen] 0.3 mg/0.3 mL auto-injector 0.3 mg IM Q4H PRN (Reason: anaphylaxis) Qty: 2 0RF cholecalciferol (vitamin D3) 25 mcg (1,000 unit) capsule 25 mcg PO DAILY 90 Days Qty: 90 1RF (DME) blood pressure monitor Kit See Rx Instructions .Route Qty: 1 0RF Rx Instructions: As directed cilostazol 50 mg tablet 100 mg PO ONCE 90 Days Qty: 180 1RF Print Language: Yoruba
[2023-09-23 23:38] LABS: Basophils Absolute Auto 0.1 X10*3/uL (0.0-0.2); Basophils Percent Auto 1.2 % (0-2); Eosinophils Absolute Auto 0.3 X10*3/uL (0.0-0.4); Eosinophils Percent Auto 4.2 % (0-4); Hematocrit 38.2 % (37.0-47.0); Hemoglobin 13.1 g/dl (12.0-16.0); Imm Gran Abs Auto 0.01 X10*3/uL (0.00-0.03); Imm Gran Pct Auto 0.1 % (0.0-0.4); Lymphocytes Absolute Auto 2.5 X10*3/uL (1.2-4.9); Lymphocytes Percent Auto 37.7 % (20-40); MANUAL DIFF FLAG NO; Mean Corpuscular HGB Conc 34.3 g/dl (31.0-35.0); Mean Corpuscular Hemoglobin 35.6 pg (27.0-33.0); Mean Corpuscular Volume 103.8 fL (80.0-98.0); Mean Platelet Volume 8.9 fL (9.4-12.3); Monocytes Absolute Auto 0.4 X10*3/uL (0.1-1.2); Monocytes Percent Auto 6.4 % (2-11); Neutrophils Absolute Auto 3.4 x10*3/uL (2.0-8.3); Neutrophils Percent Auto 50.4 % (45-73); Platelet Count 291 X10*3/uL (160-400); Red Blood Count 3.68 X10*6/uL (4.20-5.50); Red Cell Distribution Width 13.2 % (11.0-16.0); White Blood Count 6.7 X10*3/uL (4.8-10.8)
[2023-09-23 23:44] LABS: INTERNATIONAL NORM RATIO 0.9 (0.9-1.1); Prothrombin Time 10.6 SEC (11.1-13.3)
[2023-09-23 23:53] LABS: Alanine Aminotransferase 16 U/L (0-31); Albumin Level 3.6 g/dL (3.5-5.0); Alkaline Phosphatase 77 U/L (39-117); Anion Gap 19 (12-20); Aspartate Amino Transferase 18 U/L (5-31); Bilirubin Direct < 0.2 mg/dL (0.0-0.5); Bilirubin Total 0.1 mg/dL (0.0-1.0); Blood Urea Nitrogen 9 mg/dL (9-16); Calcium 8.7 mg/dL (8.4-10.2); Carbon Dioxide 18 mmol/L (22-29); Chloride 109 mmol/L (96-108); Creatinine Clr Calc Pharmacy 77.5; Estimated Glomerular Filt Rate > 60; Ethanol 64 mg/dL; Glucose Random 95 mg/dL (60-115); Magnesium 1.9 mg/dL (1.6-2.6); Potassium 4.1 mmol/L (3.3-5.1); Sodium 142 mmol/L (135-145); Total Protein 6.3 g/dL (6.5-8.0)
[2023-09-23 23:57] LABS: B Type Natriuretic Peptide 20 pg/mL (<100)
[2023-09-24] LABS: Troponin-I High Sensitivity < 2.7 ng/L (<3.5-17.0)
[2023-09-24 01:22] VITALS: BP 116/94; PULSE 75; RESP 16; TEMP 36.7; O2SAT 96
[2023-09-24 01:41] LABS: Appearance Urine Cloudy; Color Urine Yellow; Glucose Urine UA Negative (Negative); Leukocyte Esterase Urine Moderate (2+) (Negative); Nitrite Urine Positive (Negative); UMIC TRIGGER UACC YES; Urine Blood Negative (Negative); Urine Ketones Negative (Negative); Urine Protein Negative (Neg-Trace)
[2023-09-24 01:43] LABS: Bacteria Urine 2+ (None Seen); Hyaline Casts Urine 0-2 /LPF (0-2); RBC Urine 0-2 /HPF (0-2); UACC Culture Trigger YES; WBC Urine >50 /HPF (0-5)
[2023-09-24 01:57] LABS: Amphetamine Screen Urine Not Detected (Not Detect); Barbiturates, Urine Not Detected (Not Detect); Benzodiazepines Screen Urine Not Detected (Not Detect); Buprenorphine Scr Not Detected (Not Detect); Cannabinoid Screen Urine Not Detected (Not Detect); Cocaine Screen Urine Not Detected (Not Detect); Fentanyl, urine Not Detected (Not Detect); Methadone Screen, Urine Not Detected (Not Detect); Opiate Screen Urine Not Detected (Not Detect); Oxycodone Screen Urine Not Detected (Not Detect); Phencyclidine Screen Urine Not Detected (Not Detect)
[2023-09-24 01:58] LABS: Troponin-I High Sensitivity < 2.7 ng/L (<3.5-17.0)
[2023-09-24 02:38] VITALS: BP 144/78; PULSE 76; RESP 17; O2SAT 94
[2023-09-24 03:24] VITALS: BP 158/68; PULSE 74; RESP 20; TEMP 36.8; O2SAT 95
[2023-09-24] MEDS: cefuroxime axetiL 250 MG TABLET PO (03:27)
[2023-09-24 03:35] VITALS: BP 158/68; PULSE 74; RESP 20; TEMP 36.8; O2SAT 95
== END 2023-09-24 03:36 | disposition home or self-care (01) ==
PROVIDERS: Emergency Provider Emergency Medicine
DX: N39.0 Urinary tract infection, site not specified (principal); R07.89 Other chest pain; R07.9 Chest pain, unspecified; K21.9 Gastro-esophageal reflux disease without esophagitis; I21.9 Acute myocardial infarction, unspecified; Z79.899 Other long term (current) drug therapy
CPT/HCPCS: 36415; 71045; 80048; 80076; 80307; 81001; 83735; 83880; 84484; 85025; 85610; 87086; 87088; 87186; 93005; 99284; 99285

== ENCOUNTER → 2023-09-23 23:13 | Outpatient (BNV) | payer MEDICARE, SELFPAY | PROVIDERS: Emergency Provider Emergency Medicine; Visit Provider Internal Medicine Cardiovascular Disease | DX: R07.9 Chest pain, unspecified (principal) | CPT/HCPCS: 93010 ==

== ENCOUNTER 2023-10-04 13:57 | Outpatient (AMB) | payer MEDICARE, SELFPAY ==
[2023-10-04 14:13] VITALS: BP 120/80; PULSE 71; BMI 21.3
--- NOTE | 2023-10-04 14:13 | MHC.OFFVIS ---
Vital Signs 10/04/23 14:13 Height 5 ft 6 in Weight 132 lb 4.438 oz BMI 21.3 BP 120/80 Blood Pressure Location Lt brachial Position Sitting Pulse 71 Intake Visit Reasons: follow up Intake Note: Overdue follow-up was in the ED with chest pain this past weekend feeling good [employer] Required: No Allergies No Known Allergies [No Known Allergies*] Allergy (Verified 09/23/23 23:18) Medication List - Last Reconciled 10/04/23 by Christian Wu MD albuterol sulfate 90 mcg/actuation (Ventolin HFA) 2 puffs inhalation Q6H PRN 30 days aspirin 81 mg PO DAILY atorvastatin 80 mg PO DAILY blood pressure monitor As directed blood pressure monitor (Blood Pressure Kit) As directed calcium carbonate-vitamin D3 500 mg-10 mcg (400 unit) (Oyster Shell Calcium-Vitamin D3) 1 tab PO BID 90 days cilostazol 100 mg (2 x 50 mg) PO ONCE 90 days dicyclomine 20 mg PO TID 30 days epinephrine (EpiPen) 0.3 mg (0.3 mL) IM Q4H PRN levothyroxine 112 mcg PO DAILY metoprolol succinate ER 25 mg PO DAILY HPI Comments Details: Chanda returns for follow-up regarding coronary disease. In April 2021, sudden onset chest pain that led to diagnosis of anterior STEMI. Cardiac catheterization showed occluded proximal LAD. Underwent [facility] with drug-eluting stent. She states that she recently had 1 further episode of substernal chest pain and it felt somewhat like the heart attack pain but not identical. Any case, she was worried and she came to the ER. It was felt to be rather acid reflux than anything else. Now she states she feels fine. No clear exertional pattern otherwise. That chest pain episode was somewhat isolated. Otherwise, she states that she takes her meds regularly. Unfortunately, she is still smoking. [facility] Medical History Cataract History of seizure Personal history of nicotine dependence ST elevation (STEMI) myocardial infarction involving left anterior descending coronary artery (~2020) Coronary artery disease (~2020) Hypothyroidism Hypomagnesemia COPD (chronic obstructive pulmonary disease) Essential hypertension Alcohol abuse Surgical History History of tonsillectomy History of heart artery stent (~2020) Family History Mother Cancer Father No problems noted. Social History Household Members: None Housing: Apartment Are you a primary director critical care to a significant other at home: No Do you presently have visiting nurse or other home services: No Alcohol intake: current Alcohol intake frequency: 0-2 drinks per day Alcohol type: wine Patient Tobacco Use Status: Current everyday Tobacco user Tobacco use type: Cigarette Cigarettes Per Day: 6 e-Cigarette/Vaping Use: Never Used Second Hand Smoke Exposure: No Advance Directives Date on File: 01/27/21 service: No Current occupational status: employed Current occupational exposures/hazards: No Cognitive needs: No Hearing needs: No Vision needs: Yes Review of Systems Const Denies chills, Denies fatigue, Denies fever(s), Denies frequent falls, Denies weakness, Denies weight gain and Denies weight loss ENT Denies dizziness Card Denies chest pain, Denies leg edema, Denies lightheadedness, Denies palpitations, Denies dyspnea, Denies dyspnea on exertion, Denies orthopnea and Denies other (loss of consciousness) Resp Denies cough, Denies dyspnea and Denies dyspnea on exertion GI Denies hematochezia and Denies change in stool character Musc Denies abnormal gait, Denies muscle weakness, Denies numbness, Denies radiating pain into limb and Denies tingling Neuro Denies abnormal gait, Denies dizziness, Denies frequent falls, Denies numbness, Denies tingling and Denies weakness Endo Denies fatigue and Denies palpitations Physical Exam Vital Signs: Last Vital Signs Pulse 71 10/04/23 14:13 BP 120/80 10/04/23 14:13 BMI result Body Mass Index 21.3 Const General: comfortable and no acute distress Orientation/consciousness: patient oriented x3 HEENT Other: Unremarkable Head: Yes normal to inspection Neck Neck: Yes normal visual inspection Chest Chest palpation & inspection: normal inspection of the chest Resp Auscultation: clear to auscultation bilaterally Cardio Palpation: normal PMI Heart sounds: S1 normal heart sound present, S2 normal heart sound present, no gallops, no murmurs and no rubs GI Palpation (GI): Soft to palpation Back/Spine/Pelvis Other: unremarkable Skin General skin exam: no rashes or lesions noted Neuro General: patient oriented x3 Extrem General: Yes normal to inspection Psych Mental Status: mental status grossly normal Quality Reporting (2019) Adult ([facility] 138/06/30/68) Smoking risk assessment performed?: Yes Patient Tobacco Use Status: Current everyday Tobacco user Assessment & Plan Assessment & Plan (1) Atherosclerotic cardiovascular disease: Code(s): I25.10 - Atherosclerotic heart disease of [place] coronary artery without angina pectoris Category: Medical (2) ST elevation (STEMI) myocardial infarction involving left anterior descending coronary artery: Onset Date: ~2020 Code(s): I21.02 - ST elevation (STEMI) myocardial infarction involving left anterior descending coronary artery Category: Medical (3) Essential hypertension: Code(s): I10 - Essential (primary) hypertension Category: Medical (4) Smoker: Code(s): F17.200 - Nicotine dependence, unspecified, uncomplicated Category: Social Hx Plan Cardiac studies reviewed. Cardiac catheterization with occluded proximal LAD, status post drug-eluting stent. No significant disease in the circumflex and RCA. In the initial echocardiogram, LVEF was 30-35%, but seems to have improved. Most recent LVEF is 60-65%. During recent visit to the ER for chest pains, high sensitivity troponins were unremarkable. No clear ischemic findings on the EKG although the T-waves look more prominent than in the previous EKG. Etiology for the chest pain episode could be GI but not clear. We can do an exercise stress perfusion imaging for further evaluation. Echocardiogram can be completed for any wall motion abnormalities. With regard to meds, continue long-term aspirin. Continue beta-blockers. High-dose statins. She is on EpiPen as needed and we discussed the interaction beta-blockers. By documentation, she has been on amlodipine/hydrochlorothiazide in the past but then had low blood pressure and was stopped. If home blood pressure again elevated, probably resume. Smoking cessation again discussed. Follow-up after testing. Orders: Orders CA stress test Today R07.2 - Precordial pain CA echo transthoracic complete Today I25.10 - Atherosclerotic heart disease of [place] coronary artery without angina pectoris NM cardiolite stress test Today R07.2 - Precordial pain Coding Level of Care Code Est Pt Level 4 (93645) Diagnoses Atherosclerotic cardiovascular disease I25.10 ST elevation (STEMI) myocardial infarction involving left anterior descending coronary artery I21.02 Essential hypertension I10 Smoker F17.200
== END 2023-10-04 14:42 | disposition home or self-care (01) ==
PROVIDERS: PCP Internal Medicine; Visit Provider Internal Medicine
DX: I25.10 Atherosclerotic heart disease of native coronary artery without angina pectoris (principal); I21.02 ST elevation (STEMI) myocardial infarction involving left anterior descending coronary artery; I10 Essential (primary) hypertension; F17.200 Nicotine dependence, unspecified, uncomplicated
CPT/HCPCS: 99214

== ENCOUNTER → 2023-10-04 13:57 | Outpatient (BNVA) | payer MEDICARE, SELFPAY | PROVIDERS: PCP Internal Medicine; Visit Provider Internal Medicine | DX: I25.10 Atherosclerotic heart disease of native coronary artery without angina pectoris (principal); I21.02 ST elevation (STEMI) myocardial infarction involving left anterior descending coronary artery; I10 Essential (primary) hypertension; F17.210 Nicotine dependence, cigarettes, uncomplicated | CPT/HCPCS: 99212 ==